=== PATIENT | female | born 1945 | race Caucasian/White ===

== ENCOUNTER 2016-12-04 11:44 | Inpatient (IN) | payer MEDICARE ==
[~2016-12-04] VITALS: Ht 165.1 cm; Wt 81.3 kg
[2016-12-04] MEDS ORDERED: ONDANSETRON 4MG/2ML VIAL (J2405) As Ordered ONE ×2 (12:37→16:04)
[2016-12-04] MEDS ORDERED: MORPHINE 2 MG/ML 1ML SYRINGE As Ordered ONE (12:38)
[2016-12-04 12:43] LABS: BASO % 0.4 % (0.0-1.0); EOS # 0.2 K/mm3 (0.0-0.50); EOS % 1.6 % (0.0-3.0); LARGE UNSTAINED CELL # 0.1 K/mm3 (0.0-0.4); LARGE UNSTAINED CELL % 0.8 % (0.0-4.0); LYMPH # 1.5 K/mm3 (1.5-4.5); LYMPH % 11.4 % (24.0-44.0); MEAN CORPUSCULAR HEMOGLOBIN 29.6 pg (27.0-33.0); MEAN CORPUSCULAR HGB CONC 34.1 g/dl (32.0-36.5); MEAN CORPUSCULAR VOLUME 86.9 fl (80.0-96.0); MONO # 0.6 K/mm3 (0.0-0.8); MONO % 4.8 % (0.0-5.0); NEUTROPHILS # 9.7 K/mm3 (1.8-7.7); NEUTROPHILS % 80.9 % (36.0-66.0); PLATELET COUNT, AUTOMATED 224 k/mm3 (150-450); RED CELL DISTRIBUTION WIDTH 13.6 % (11.5-14.5)
[2016-12-04 13:22] LABS: CALCIUM LEVEL 8.8 MG/DL (8.8-10.2); CREATININE FOR GFR 1.01 MG/DL (0.55-1.02); FREE T4 1.05 NG/DL (0.76-1.46); GLOMERULAR FILTRATION RATE 57.2 (>39); POTASSIUM SERUM 3.3 MEQ/L (3.5-5.1)
[2016-12-04] MEDS ORDERED: MORPHINE 4 MG/ML 1ML SYRINGE As Ordered ONE ×2 (14:03→14:32)
[2016-12-04] MEDS ORDERED: LEVO88TA24 PO (14:10)
[2016-12-04] MEDS ORDERED: TYLE500T78 PO (14:10)
[2016-12-04] MEDS ORDERED: SIMV80TA PO (14:10)
[2016-12-04] MEDS ORDERED: OMEP40CA2 PO (14:10)
[2016-12-04] MEDS ORDERED: RANI150T PO (14:10)
[2016-12-04] MEDS ORDERED: ASPI325T PO (14:10)
[2016-12-04] MEDS ORDERED: TRAZ50TA4 PO (14:10)
[2016-12-04] MEDS ORDERED: LISI10TA4 PO (14:10)
[2016-12-04] MEDS ORDERED: CYCL5TA PO (14:10)
[2016-12-04] MEDS ORDERED: LABETALOL HCL 100 MG/20 ML VIAL As Ordered ONE (14:32)
[2016-12-04] MEDS ORDERED: LABETALOL HCL 100 MG/20 ML VIAL IV PRN (15:00)
--- NOTE | 2016-12-04 15:08 | HPEPDOC ---
Medical History and Physical Date of Admission 12/04/16 History and Physical PRIMARY CARE PROVIDER: Dr. Michaels ATTENDING: Dara Sanchez M.D. CHIEF COMPLAINT: Headache HISTORY OF PRESENT ILLNESS: This is a 71-year-old year-old past medical history hypertension, hypothyroidism , GERD, degenerative disc disease who presents complaining of severe headaches. Patient states that she started to develop a frontal bilateral headache with radiation towards the occipital region for the past week which is been increasing in intensity. Patient denies any vision changes/nausea/vomiting. Describes the pain as pressure-like, 7 out of 10. Also states that she's been stable on her feet as well. Patient denies any chest pain/possible/palpitations. No nausea/vomiting/ abdominal pain. No syncopal episodes. No seizures. Patient states she takes aspirin and statin, however has not taken all of her medications for 3 days this week. In the ED patient was found to have subacute cerebral infarct, and was relatively hypertensive. PAST MEDICAL HISTORY: As per HPI PAST SURGICAL HISTORY: Appendectomy, hysterectomy, back surgery, carpal tunnel repair bilaterally. SOCIAL HISTORY: Denies tobacco, alcohol, illicit drug use. FAMILY HISTORY: Mother with myocardial aneurysm ALLERGIES: Please see below. REVIEW OF SYSTEMS: HEENT: Denies sore throat/headache CARDIOVASCULAR: Denies chest pain/palpitations RESPIRATORY: No shortness of breath/cough GASTROINTESTINAL: Denies nausea/vomiting GENITOURINARY: Denies dysuria/urinary urgency. MUSCULOSKELETAL: Denies myalgias/arthralgias NEUROLOGICAL: Denies any focal weakness Rest of ROS negative. HOME MEDICATIONS: Please see below. PHYSICAL EXAMINATION: Vitals: (see below) General: No acute distress, laying comfortably in bed. HEENT: Moist mucous membranes. Neck: No JVD or lymphadenopathy. Neck Full ROM. Tenderness to palpation of trapezius muscle, occipital region L>R. Cardiac: RRR, No murmurs Pulm: Coarse crackles at the bases b/l. No wheezing, no rhonchi Abd: NT/ND + BS Ext: No edema or cyanosis Neuro: Strength 5/5 BUE and BLE. CN 2-12 intact. F to N intact Negative pronator drift. Negative Babinki. Sensation to fine touch intact. Neuro: Strength 5/5 BUE and BLE. CN 2-12 intact. F to N intact Negative pronator drift. Negative Babinki. DTR 2 Neuro: Strength 5/5 BUE and BLE. CN 2-12 intact. F to N intact Negative pronator drift. Negative Babinki. Sensation to fine touch intact DTR 2+ throughout NIH 0 LABORATORY DATA: See below. IMAGING: CT Head 12/04/16 Read by radiologist Impression: 1. An 8.5 mm hypodense area in the region of the anterior limb of the right internal capsule suggesting subacute infarct. I see no bleed. 2. Chronic small vessel white matter ischemic changes of aging, bilateral. 3. No ventriculomegaly, significant atrophy, hemorrhage, mass, mass effect or edema. 4. Brainstem and cerebellum are normal for age and there is no fracture of the skull base or calvarium. 5. Sinuses, mastoids, skull base and calvarium without acute finding. MRI Brain 12/04/16 Impression: 1. There is extensive periventricular deep central and subcortical white matter hyperintense and T2 FLAIR foci in both hemispheres and basal ganglia. More confluent area in the right basal ganglia, involving the putamen and anterior limb of the internal capsule corresponds to the appearance of a subacute infarct on CT. No bleed. 2. There is a gyriform pattern of subcortical restricted water diffusion in the right posterior frontal anterior parietal region. This suggest acute infarct in a watershed area. 3. No mass, bleed, brainstem or cerebellar acute finding. MRA Brain 12/04/16 Impression: 1. There is no posterior fossa circulatory occlusion or aneurysm. There is stenosis of the proximal left [employer] and an asymmetric posterior communicating artery on the left off the ICA representing a minimal component of origin for that vessel. 2. Internal carotids from the skull base to the carotid siphon and supraclinoid carotids are symmetric and grossly intact with slightly smaller A1 segment on the right with a distal stenosis and with communicating artery and a larger left A1 segment feeding of both right and left anterior cerebrals. 3. The M1 segments and trifurcation vessels of both middle cerebrals were grossly intact. CTA Neck 12/04/16 Impression: Unremarkable CT Angiogram of the carotid arterial system. No evidence of stenosis, dissection, or aneurysm. Minimal atherosclerotic changes bilaterally. CTA Head 12/04/16 Impression: Unremarkable CT angiogram of the head. MICROBIOLOGY: Please see below. ASSESSMENT/PLAN: Ischemic CVA- subacute as well as acute infarct (MRI above). Patient initially presented with intractable headaches. No focal neurologic deficits on exam. Patient had taken an aspirin as well as statin this morning. Patient developed a stroke after missing 3 days of aspirin over the past week. Spoke with Dr. Brooks, and discussed MRI of the brain/MRA head. Plan to change ASA to plavix. SBP Goal 140-180 in the next 48 hrs. CTA neck with no dissection. PT/ OT/ST. Discussed with family and patient that there certainly may be complications developing given the extent of the acute infarct in the watershed region. Will admit to ICU for close observation. Given no timeline of the infarct, spoke with Dr. Brooks - pt is not a candidate for tpa. Cervical spine pain, with trapezius tenderness. History of degenerative disc disease. No focal weakness on exam. We'll obtain MRI cervical spine. Hypertension- permissive hypertension for 24 hours followed by stricter control of patient's blood pressure. Labetalol IV when necessary. Hypothyroidism- continue Synthroid DVT prophylaxis- SCDs for now. Patient is full code. Patient will be followed by Dr. Daria Jc starting 12/05/16 7 AM. Vital Signs BP 200/100, HR 83, RR 16, O2 sat 96% RA, Afebrile. Laboratory Data Labs 24H Laboratory Tests 2 12/04/16 12:35: Anion Gap 10, White Blood Count 12.0H, Red Blood Count 5.05, Hemoglobin 15.0, Hematocrit 43.9, Mean Corpuscular Volume 86.9, Mean Corpuscular Hemoglobin 29.6 , Mean Corpuscular Hemoglobin Concent 34.1, Red Cell Distribution Width 13.6, Platelet Count 224, Neutrophils (%) (Auto) 80.9H, Lymphocytes (%) (Auto) 11.4L, Monocytes (%) (Auto) 4.8, Eosinophils (%) (Auto) 1.6, Basophils (%) (Auto) 0.4, Neutrophils # (Auto) 9.7H, Lymphocytes # (Auto) 1.5, Monocytes # (Auto) 0.6, Eosinophils # (Auto) 0.2, Basophils # (Auto) 0.0, Blood Urea Nitrogen 15, Creatinine 1.01, Sodium Level 143, Potassium Level 3.3L, Chloride Level 107, Carbon Dioxide Level 26, Calcium Level 8.8, Free Thyroxine 1.05, Glomerular Filtration Rate 57.2, Large Unclassified Cells # 0.1, Large Unclassified Cells % 0.8, Thyroid Stimulating Hormone (TSH) 5.840H CBC/BMP Laboratory Tests 12/04/16 12:35 Calcium Level 8.8, Red Blood Count 5.05, Mean Corpuscular Volume 86.9, Mean Corpuscular Hemoglobin 29.6, Mean Corpuscular Hemoglobin Concent 34.1, Red Cell Distribution Width 13.6, Neutrophils (%) (Auto) 80.9 H, Lymphocytes (%) (Auto) 11.4 L, Monocytes (%) (Auto) 4.8, Eosinophils (%) (Auto) 1.6, Basophils (%) ( Auto) 0.4, Neutrophils # (Auto) 9.7 H, Lymphocytes # (Auto) 1.5, Monocytes # ( Auto) 0.6, Eosinophils # (Auto) 0.2, Basophils # (Auto) 0.0 Home Medications Scheduled Aspirin (Aspirin) 325 Mg Tab 325 MG PO DAILY Levothyroxine Sodium (Levoxyl) 88 Mcg Tab 88 MCG PO DAILY Lisinopril (Lisinopril) 10 Mg Tab 10 MG PO QPM Omeprazole (Omeprazole) 40 Mg Cap 40 MG PO DAILY Simvastatin - High Dose (Simvastatin) 80 Mg Tab 80 MG PO DAILY Scheduled PRN Acetaminophen (Tylenol Extra Strength) 500 Mg Tab 1,000 MG PO Q6H PRN PRN PAIN Cyclobenzaprine HCl (Cyclobenzaprine HCl) 5 Mg Tab 5 MG PO BID PRN PRN SPASMS Ranitidine HCl (Ranitidine HCl) 150 Mg Tab 1 TAB PO DAILY PRN PRN HEARTBURN Trazodone HCl (Trazodone HCl) 50 Mg Tab 25 MG PO QHS PRN PRN SLEEP Allergies Coded Allergies: No Known Allergies (Unverified , 12/04/16) DARA SANCHEZ MD Dec 04, 2016 15:08
[2016-12-04 15:12] LABS: INR 1.02
[2016-12-04 15:49] LABS: ERYTHROCYTE SEDIMENTATION RATE 11 mm/hr (0-30)
[2016-12-04] MEDS ORDERED: PROMETHAZINE INJ 25 MG/ML VIAL (J2550) As Ordered ONE (17:03)
[2016-12-04] MEDS ORDERED: ISOVUE-370 76% 100ML VIAL (Q9967) As Ordered ONE ×2 (17:41→18:05)
[2016-12-04] MEDS ORDERED: hydrALAZINE INJ 20 MG/ML VIAL IV PRN (19:00)
[2016-12-04] MEDS ORDERED: hydrALAZINE INJ 20 MG/ML VIAL IV ONE (19:00)
--- NOTE | 2016-12-04 19:10 | REPUSA ---
CT angiogram of the head Clinical history: stroke. Technique: Multiple axial CT images were obtained through the head after a bolus of nonionic intraven ous contrast. Coronal and sagittal reconstructed images were also obtained. Findings: The intracerebral arterial structures including the [place], as well as the distal portions of the carotid and vertebrobasilar arterial systems, demonstrate normal caliber and contour . There is no evidence of aneurysm, stenosis, or thrombosis. No abnormal enhancing mass lesions are s een within the brain. The ventricles and sulci are symmetric bilaterally. There is no midline shift, mass effect, or extra-axial fluid collection. The osseous structures are unremarkable. The visualized paranasal sinuses and mastoid air cells are clear. Impression: Unremarkable CT angiogram of the head.
--- NOTE | 2016-12-04 19:10 | REPUSA ---
Clinical history: stroke. Technique: Multiple axial CT images were obtained from the mid cranium through the mid mediastinum af ter a bolus of nonionic intravenous contrast. Coronal and sagittal reconstructed images were also obt ained. MIP images with 3-D reconstructions were also obtained. No comparison is available. Findings: The aorta appears unremarkable. The great thoracic vessels are grossly patent. The common c arotid arteries and carotid arterial systems demonstrate normal caliber and contour bilaterally. Mini mal atherosclerosis is seen at the carotid bifurcation bilaterally. There is no evidence of stenosis, thrombosis, or aneurysm. The visualized portions of the [place] and intracerebral arterial structures appear unremarkable. The vertebral basilar system is well maintained. The osseous structur es don't demonstrate any gross abnormalities. Mild multilevel degenerative disc disease is seen in th e cervical spine. The surrounding soft tissues are within normal limits. Impression: Unremarkable CT Angiogram of the carotid arterial system. No evidence of stenosis, dissec tion, or aneurysm. Minimal atherosclerotic changes bilaterally.
[2016-12-04] MEDS ORDERED: hydrALAZINE INJ 20 MG/ML VIAL As Ordered ONE (19:25)
--- NOTE | 2016-12-04 19:35 | ECGEPIP ---
Stationary ECG Study 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
--- NOTE | 2016-12-04 19:40 | ECGEPIP ---
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
--- NOTE | 2016-12-04 19:51 | EDDOCDS ---
Nurse's Notes [facility] Name: Leila Hernández Age: 71 yrs Sex: Female : 1945 Arrival Date: 12/04/2016 Time: 11:44 Bed MRI Private MD: Noé Michaels M.D. Diagnosis: Cerebral ischemia-subacute, right internal capsule;Essential (primary) hypertension Presentation: 12/04 11:49 Presenting complaint: Patient states: headache, lightheadedness and neck pain on and rs3 off for a week. had some relief with Tylenol. better laying down, worse with getting up or activities. denies radicular pain/numbness to arms. Risk Factors No acute neurological deficit is noted. Adult Sepsis Screening: The patient does not have new or worsening altered mentation. Patient's respiratory rate is less than 22. Systolic blood pressure is greater than 100. Patient has a qSOFA score of 0- Negative Sepsis Screen. Suicide/Homicide risk assessment- the patient denies having any suicidal and/or homicidal ideations and does not present with any other emotional, behavioral or mental health complaints. Status: Patient is not a health services information specialist or dependent. Transition of care: patient was not received from another setting of care. 11:49 Acuity: SEBASTIAN Level 3 rs3 11:49 Method Of Arrival: Walkin/Carried/Asstd rs3 Triage Assessment: 11:53 General: Appears in no apparent distress. Pain: Pain currently is 6 out of 10 on a pain rs3 scale. Musculoskeletal: Reports Pain is 8 out of 10 on a pain scale. Historical: - Allergies: no known allergies; - Home Meds: 1. omeprazole 40 mg Oral cpDR 1 cap once daily 2. simvastatin 80 mg Oral tab daily 3. levothyroxine 88 mcg Oral cap 1 cap once daily 4. aspirin 325 mg Oral tab 1 tab once daily 5. ranitidine HCl 150 mg Oral tab prn 6. trazodone 50 mg Oral tab 0.5 tab prn 7. lisinopril 10 mg Oral tab 1 tab nightly (Last dose: 12/03/2016) 8. cyclobenzaprine 5 mg Oral tab 1 tab twice a day as needed - PMHx: Hypothyroidism; Hypertension; Hypercholesterolemia; GERD; - PSHx: Carpal Tunnel Repair- Bilateral; back surgery; Hysterectomy; Appendectomy; - The history from nurses notes was reviewed: and I agree with what is documented. - Social history: Smoking status: Patient states was never smoker of tobacco. No barriers to communication noted, The patient speaks fluent Vietnamese. - : The pt / caregiver states he / she is not on anticoagulants. Home medication list is obtained from the patient. - Hospitalizations: : No recent hospitalization is reported. - Exposure Risk Screening:: None identified. - Immunization history:: All immunizations up-to-date. - Family history: Not pertinent. - Social history:: the patient is a non-smoker, the patient does not drink alcohol. Screenin:08 Screening information is obtained from the patient. Fall risk: No risks identified. hs1 Assistance ADL's: requires no assistance with activities of daily living. Abuse/DV Screen: The patient / caregiver reports he/she is: not in a situation that causes fear, pain or injury. Nutritional screening: No deficits noted. Advance Directives: There is no active DNR order. home support is adequate. Assessment: 12:40 General: Appears uncomfortable, Behavior is appropriate for age, cooperative. Pain: hs1 Location: forehead, left ear and left episcopal Pain currently is 9 out of 10 on a pain scale. Quality of pain is described as sharp, shooting. Neurological: Level of Consciousness is awake, alert, obeys commands, Oriented to person, place, time, Primer Inspector are equal bilaterally Moves all extremities. Gait is steady, Facial symmetry appears normal, Pupils are PERRLA. Neurological: Reports headache. Cardiovascular: Rhythm is sinus rhythm No ectopy. Respiratory: Airway is patent Respiratory effort is even, unlabored, Respiratory pattern is regular, symmetrical, Breath sounds are clear bilaterally. Derm: Skin is pink, warm & dry. normal. 13:10 Reassessment: Patient states feeling better. Patient states symptoms have improved. hs1 Patient reports pain in headache better now 8/10. Patient has been to CT and is aware of waiting for results. . 14:08 Pain: Location: forehead Pain currently is 8 out of 10 on a pain scale. Quality of pain hs1 is described as sharp, shooting. Cardiovascular: Rhythm is sinus rhythm No ectopy. Respiratory: No deficits noted. Derm: No deficits noted. 14:41 General: Patient aware of admission and need for MRI. Ordered received from hospitalist hs1 and administered. Patient visibly upset and family surrounds patient at this time. Patient administered morphine at this time as well per order. Patient trying to become comfortable and rest until more testing completed. . 15:50 General: Called by large animal husbandry technician to come assess patient as he does not like patients hs1 color. This nurse went to assess patient and patient found diaphoretic and flushed. Patient reports intense nausea feeling and not feeling well. Patient immediately brought back to room and assessed. MD Moore paged for change in patient condition. . 16:10 General: Patient given Zofran per order and still feels uncomfortable. Abed in hs1 department at this time and is aware to visit patient. Patient still continues to feel "yucky". Nursing continuing to monitor closely. . 16:53 General: Behavior is patient continuing to still feel yucky. Teresa WOOD in to see patient hs1 and new orders received. Patient still diaphoretic and bradycardic. Family continues at bedside. . 17:50 General: Appears appears much more comfortable than previous. Family concerned about hs1 treatments and want to talk to Teresa again Re- plan of care. . Behavior is appropriate for age, cooperative. 18:24 General: Behavior is patient in CT at this time. Patient color much improved since MRI hs1 scan. Patient and family resting and aware of waiting for ICU bed at this time. . 19:31 General: Appears in no apparent distress, comfortable, Behavior is appropriate for age, mv5 cooperative, pleasant. Pain: Denies pain. Neurological: Level of Consciousness is awake, alert, Oriented to person, place, time, Facial symmetry appears normal, Pupils are PERRLA. Cardiovascular: Rhythm is sinus rhythm No ectopy. Respiratory: No deficits noted. Derm: Skin is pink, warm & dry. 19:34 General: Medicated per admission order for elevated BP. Pt tolerated well.. mv5 Vital Signs: 11:46 BP 209 / 144; Pulse 92; Resp 18; Temp 97.6(O); Pulse Ox 100% on R/A; Weight 81.65 kg bnb (R); Height 5 ft. 5 in. (165.10 cm) (R); Pain 10/10; 11:46 BP 165 / 95 LA Sitting (auto/reg); bnb 14:20 BP 214 / 100; Pulse 92; Resp 18; Pain 7/10; hs1 14:41 BP 177 / 85; Pulse 82; Resp 18; Pulse Ox 91% ; Pain 8/10; hs1 15:55 BP 167 / 74 (auto/); hs1 15:56 Pulse 78 MON; Pulse Ox 96% ; hs1 16:10 BP 165 / 75 (auto/); hs1 16:10 Pulse 70 MON; Resp 18; Pulse Ox 96% ; hs1 16:40 BP 160 / 77 (auto/); hs1 16:40 Pulse 62 MON; Resp 18; Temp 96.7(O); Pulse Ox 98% ; hs1 16:55 Pulse 62 MON; Pulse Ox 98% ; hs1 16:55 BP 184 / 91 (auto/); hs1 17:10 BP 155 / 67 (auto/); hs1 17:10 Pulse 74 MON; Pulse Ox 98% ; hs1 17:25 BP 177 / 93 (auto/); hs1 17:25 Pulse 62 MON; Pulse Ox 99% ; hs1 17:39 Pulse 68 MON; Pulse Ox 100% ; hs1 17:40 BP 191 / 87 (auto/); hs1 17:55 BP 188 / 90 (auto/); hs1 17:55 Pulse 64 MON; Pulse Ox 100% ; hs1 19:31 BP 184 / 85; Pulse 76; Resp 18; Temp 97.6(TE); Pulse Ox 96% on 2 lpm NC; mv5 11:46 Body Mass Index 29.95 (81.65 kg, 165.10 cm) bnb Vitals: 11:46 Log In Time: December 04, 2016 at 11:43. b ED Course: 11:45 Patient visited by Fadia Rocha PCA. bnb 11:45 Patient moved to Waiting bnb 11:46 Noé Michaels is Private Physician. bnb 11:48 Patient moved to Pre RCE bnb 11:52 Triage Initiated rs3 11:56 Kenya Figueroa, PAT is Primary Nurse. jjr 11:56 Patient moved to 9 jjr 12:02 Fran Hussein MD is Attending Physician. pc 12:11 Patient visited by Miguel Suarez PCA. jrd 12:11 EKG done. (by ED staff). Reviewed by Fran Hussein MD. jrd 12:18 Patient visited by Fran Hussein MD. pc 12:45 Inserted saline lock: 20 gauge in left antecubital area and blood collected. The hs1 patient tolerated the procedure well. 12:54 Patient visited by Kenya Figueroa RN. hs1 13:31 Patient visited by Kenya Figeuroa, PAT. hs1 14:06 Patient visited by Kenya Figueroa, PAT. hs1 14:08 The patient / caregiver is instructed regarding the plan of care and ED course. hs1 14:35 Burak Moore is Hospitalizing Provider. pc 14:56 Patient moved to MRI deg 15:25 [facility] Payment Agreement was scanned into [employer] and attached to record. mpb 16:46 Patient visited by Miguel Suarez PCA. jrd 16:46 EKG done. (by ED staff). Reviewed by Kenya Figueroa RN. jrd 19:10 Mary Hart,PAT is Primary Nurse. mv5 19:36 No procedures done that require assistance. mv5 19:36 CT ANGIO NECK Returned. EDMS 19:36 CT ANGIO HEAD Returned. EDMS Administered Medications: 12:44 Drug: Ondansetron 4 mg [ondansetron HCl 2 mg/mL intravenous solution (2 mL)] Route: hs1 IVP; Site: left antecubital; 12:44 Drug: Diazepam 2 mg [diazepam 5 mg/mL injection syringe (0.4 mL)] Route: IVP; Site: hs1 left antecubital; 13:55 Follow up: Response: No significant change. hs1 12:45 Drug: morphine 2 mg [morphine 2 mg/mL intravenous cartridge (1 mL)] Route: IVP; Site: hs1 left antecubital; 14:41 Follow up: BP 177 / 85; Pulse 82 bpm; Resp 18 bpm; Pulse Ox 91% ; Pain 8/10 Adult; hs1 Response: Pain is decreased 14:05 Drug: morphine 4 mg [morphine 4 mg/mL intravenous cartridge (1 mL)] Route: IVP; Site: hs1 left antecubital; 14:20 Follow up: BP 214 / 100; Pulse 92 bpm; Resp 18 bpm; Pain 7/10 Adult; Response: Pain is hs1 decreased 14:40 Drug: morphine 4 mg [morphine 4 mg/mL intravenous cartridge (1 mL)] Route: IVP; Site: hs1 left antecubital; 14:40 Drug: Labetalol 10 mg [labetalol 5 mg/mL intravenous solution (2 mL)] Route: IVP; Rate: hs1 bolus; Infused Over: 2 mins; Site: left antecubital; 16:00 Drug: Ondansetron 4 mg [ondansetron HCl 2 mg/mL intravenous solution (2 mL)] Route: hs1 IVP; Site: left antecubital; 16:54 CANCELLED (wrong MD): Promethazine 12.5 mg IVP once; dilute and administer 30-60 minuteshs1 17:12 Drug: Promethazine 12.5 mg [promethazine 25 mg/mL injection solution (0.5 mL)] Route: hs1 IVP; Site: left antecubital; Order Results: Lab Order: CBC with Diff; SPEC'M 12/04/16 12:35 Test: WHITE BLOOD COUNT; Value: 12.0; Range: 4.0-10.0; Abnormal: Above high normal; Units: K/mm3; Status: F Test: RED BLOOD COUNT; Value: 5.05; Range: 4.00-5.40; Units: M/mm3; Status: F Test: HEMOGLOBIN; Value: 15.0; Range: 12.0-16.0; Units: g/dl; Status: F Test: HEMATOCRIT; Value: 43.9; Range: 36.0-47.0; Units: %; Status: F Test: MEAN CORPUSCULAR VOLUME; Value: 86.9; Range: 80.0-96.0; Units: fl; Status: F Test: MEAN CORPUSCULAR HEMOGLOBIN; Value: 29.6; Range: 27.0-33.0; Units: pg; Status: F Test: MEAN CORPUSCULAR HGB CONC; Value: 34.1; Range: 32.0-36.5; Units: g/dl; Status: F Test: RED CELL DISTRIBUTION WIDTH; Value: 13.6; Range: 11.5-14.5; Units: %; Status: F Test: PLATELET COUNT, AUTOMATED; Value: 224; Range: 150-450; Units: k/mm3; Status: F Test: NEUTROPHILS %; Value: 80.9; Range: 36.0-66.0; Abnormal: Above high normal; Units: %; Status: F Test: LYMPH %; Value: 11.4; Range: 24.0-44.0; Abnormal: Below low normal; Units: %; Status: F Test: MONO %; Value: 4.8; Range: 0.0-5.0; Units: %; Status: F Test: EOS %; Value: 1.6; Range: 0.0-3.0; Units: %; Status: F Test: BASO %; Value: 0.4; Range: 0.0-1.0; Units: %; Status: F Test: LARGE UNSTAINED CELL %; Value: 0.8; Range: 0.0-4.0; Units: %; Status: F Test: NEUTROPHILS #; Value: 9.7; Range: 1.8-7.7; Abnormal: Above high normal; Units: K/mm3; Status: F Test: LYMPH #; Value: 1.5; Range: 1.5-4.5; Units: K/mm3; Status: F Test: MONO #; Value: 0.6; Range: 0.0-0.8; Units: K/mm3; Status: F Test: EOS #; Value: 0.2; Range: 0.0-0.50; Units: K/mm3; Status: F Test: BASO #; Value: 0.0; Range: 0.0-0.2; Units: K/mm3; Status: F Test: LARGE UNSTAINED CELL #; Value: 0.1; Range: 0.0-0.4; Units: K/mm3; Status: F Test: ERYTHROCYTE SEDIMENTATION RATE; Range: 0-30; Units: mm/hr; Status: I Lab Order: MED Profile; [facility] 12/04/16 12:35 Test: GLUCOSE, FASTING; Value: 123; Range: 83-110; Abnormal: Above high normal; Units: MG/DL; Status: F Test: BLOOD UREA NITROGEN; Value: 15; Range: 7-18; Units: MG/DL; Status: F Test: CREATININE FOR GFR; Value: 1.01; Range: 0.55-1.02; Units: MG/DL; Status: F Test: GLOMERULAR FILTRATION RATE; Value: 57.2; Range: >39; Status: F Test: SODIUM LEVEL; Value: 143; Range: 136-145; Units: MEQ/L; Status: F Test: POTASSIUM SERUM; Value: 3.3; Range: 3.5-5.1; Abnormal: Below low normal; Units: MEQ/L; Status: F Test: CHLORIDE LEVEL; Value: 107; Range: 98-107; Units: MEQ/L; Status: F Test: CARBON DIOXIDE LEVEL; Value: 26; Range: 21-32; Units: MEQ/L; Status: F Test: ANION GAP; Value: 10; Range: 8-16; Units: MEQ/L; Status: F Test: CALCIUM LEVEL; Value: 8.8; Range: 8.8-10.2; Units: MG/DL; Status: F Test Note: ; Units are mL/min/1.73 m2 Chronic Kidney Disease Staging per NKF: Stage I & II GFR >=60 Normal to Mildly Decreased Stage III GFR 30-59 Moderately Decreased Stage IV GFR 15-29 Severely Decreased Stage V GFR <15 Very Little GFR Left ESRD GFR <15 on CARDIAC EXERCISE PHYSIOLOGIST Lab Order: TSH with Free T4; SPEC'M 12/04/16 12:35 Test: THYROID STIMULATING HORMONE; Value: 5.840; Range: 0.358-3.740; Abnormal: Above high normal; Units: uIU/ML; Status: F Test: FREE T4; Value: 1.05; Range: 0.76-1.46; Units: NG/DL; Status: F Lab Order: PROTHROMBIN TIME PROFILE\\E\\INR; SPEC'12/04/16 12:35 Test: PROTHROMBIN TIME; Value: 13.5; Range: 12.3-14.5; Units: SECONDS; Status: F Test: INR; Value: 1.02; Status: F Test Note: ; THERAPUTIC HUMAN INR VALUES INDICATIONS NORMAL RANGES PROPHYLAXIS/TREATMENT OF: VENOUS THROMBOSIS 2.0-3.0 PULMONARY EMBOLISM 2.0-3.0 PREVENTION OF SYSTEMIC EMBOLISM FROM: TISSUE HEART VALVES 2.0-3.0 ACUTE MYOCARDIAL INFARCTION 2.0-3.0 VALVULAR HEART DISEASE 2.0-3.0 ATRIAL FIBRILLATION 2.0-3.0 MECHANICAL VALVES(HIGH RISK) 2.5-3.5 RECURRENT MYOCARDIAL INFARCTION 2.5-3.5 Lab Order: ERYTHROCYTE SEDIMENTATION RATE; SPEC'M 12/04/16 12:35 Test: ERYTHROCYTE SEDIMENTATION RATE; Value: 11; Range: 0-30; Units: mm/hr; Status: F Radiology Order: CT ANGIO HEAD Test: CT ANGIO HEAD REASON FOR EXAMINATION: cva; ; CT angiogram of the head; Clinical history: stroke.; Technique: Multiple axial CT images were obtained through the head after a bolus of nonionic intraven; ous contrast. Coronal and sagittal reconstructed images were also obtained.; Findings: The intracerebral arterial structures including the [place] of [place], as well as the distal; portions of the carotid and vertebrobasilar arterial systems, demonstrate normal caliber and contour; . There is no evidence of aneurysm, stenosis, or thrombosis. No abnormal enhancing mass lesions are s; een within the brain. The ventricles and sulci are symmetric bilaterally. There is no midline shift,; mass effect, or extra-axial fluid collection. The osseous structures are unremarkable. The visualized; paranasal sinuses and mastoid air cells are clear.; Impression: Unremarkable CT angiogram of the head.; ; Radiology Order: CT ANGIO NECK Test: CT ANGIO NECK REASON FOR EXAMINATION: cva; neck pain; r/o carotid dissection; ; Clinical history: stroke.; Technique: Multiple axial CT images were obtained from the mid cranium through the mid mediastinum af; ter a bolus of nonionic intravenous contrast. Coronal and sagittal reconstructed images were also obt; ained. MIP images with 3-D reconstructions were also obtained.; No comparison is available.; Findings: The aorta appears unremarkable. The great thoracic vessels are grossly patent. The common c; arotid arteries and carotid arterial systems demonstrate normal caliber and contour bilaterally. Mini; mal atherosclerosis is seen at the carotid bifurcation bilaterally. There is no evidence of stenosis,; thrombosis, or aneurysm. The visualized portions of the [place] of [place] and intracerebral arterial; structures appear unremarkable. The vertebral basilar system is well maintained. The osseous structur; es don't demonstrate any gross abnormalities. Mild multilevel degenerative disc disease is seen in th; e cervical spine. The surrounding soft tissues are within normal limits.; Impression: Unremarkable CT Angiogram of the carotid arterial system. No evidence of stenosis, dissec; tion, or aneurysm. Minimal atherosclerotic changes bilaterally.; ; Outcome: 14:35 Decision to Hospitalize by Provider. pc 19:36 Discharge Assessment: Patient awake, alert and oriented x 3. No cognitive and/or mv5 functional deficits noted. Patient verbalized understanding of disposition instructions. patient administered narcotics - yes. Patient was admitted to the hospital or transferred to another facility. The following High Risk Discharge criteria are identified: None. Admitted to ICU. Condition: stable. MRI Study completed. Property :Personal belongings accompany Pt. 19:50 Patient left the ED. mv5 Signatures: Dispatcher [employer] EDMS Fran Hussein MD MD pc Luh Bell, Solar Thermal Technician Unit deg Cassidy Alves, RN RN Renetta Loving,RN RN rs3 Kenya Figueroa RN RN hs1 Miguel Suarez, RETAIL LOSS PREVENTION SPECIALIST RETAIL LOSS PREVENTION SPECIALIST jrd Delbert Oliveira, Reg Reg mpb Fadia Rocha, RETAIL LOSS PREVENTION SPECIALIST RETAIL LOSS PREVENTION SPECIALIST bnb Mary Hart,RN RN mv5 Corrections: (The following items were deleted from the chart) 12:45 12:45 Inserted saline lock: 20 gauge in left antecubital area hs1 hs1 MTDD
--- NOTE | 2016-12-04 19:51 | EDDOCDS ---
Physician Documentation [facility] Name: Leila Hernández Age: 71 yrs Sex: Female : 1945 Arrival Date: 12/04/2016 Time: 11:44 Bed MRI Private MD: Noé Michaels M.D. Disposition: 12/04 14:33 Critical Care: Critical care not applicable. pc Disposition: 12/04/16 14:35 Hospitalization ordered by Burak Moore for Inpatient Admission. Preliminary diagnosis are Cerebral ischemia - subacute, right internal capsule, Essential (primary) hypertension. - Bed requested for M ICU. - Status is Inpatient Admission. mv5 - Condition is Stable. - Problem is new. - Symptoms have improved. HPI: 12:31 This 71 yrs old Female presents to ER via Walkin/Carried/Asstd with pc complaints of Neck and Upper Back Pain. 12:31 The history is obtained from the patient. She developed upper back and neck pain 8 days pc ago, left worse than right. She denies any traumatic or overuse injury. She has been using Tylenol without relief. She has Flexeril for low back spasms but do not use any for her upper back and neck. She denies any fevers or chills, cough, URI symptoms, chest pain, n/v/d, abd. pain, symptoms, rashes or joint pain. She says over the past 3 days, the pain has gotten worse and she is having pain in her forehead above her eyebrows only. She presents hypertensive with a known history of the same, but under control per her account. She denies any visual changes, focal neuro changes. At their worst, the symptoms were a 10 out of 10. In the emergency department, the symptoms are unchanged. The patient has not experienced similar symptoms in the past. The patient has not recently seen a physician. Historical: - Allergies: no known allergies; - Home Meds: 1. omeprazole 40 mg Oral cpDR 1 cap once daily 2. simvastatin 80 mg Oral tab daily 3. levothyroxine 88 mcg Oral cap 1 cap once daily 4. aspirin 325 mg Oral tab 1 tab once daily 5. ranitidine HCl 150 mg Oral tab prn 6. trazodone 50 mg Oral tab 0.5 tab prn 7. lisinopril 10 mg Oral tab 1 tab nightly (Last dose: 12/03/2016) 8. cyclobenzaprine 5 mg Oral tab 1 tab twice a day as needed - PMHx: Hypothyroidism; Hypertension; Hypercholesterolemia; GERD; - PSHx: Carpal Tunnel Repair- Bilateral; back surgery; Hysterectomy; Appendectomy; - The history from nurses notes was reviewed: and I agree with what is documented. - Social history: Smoking status: Patient states was never smoker of tobacco. No barriers to communication noted, The patient speaks fluent Belarusian. - : The pt / caregiver states he / she is not on anticoagulants. Home medication list is obtained from the patient. - Hospitalizations: : No recent hospitalization is reported. - Exposure Risk Screening:: None identified. - Immunization history:: All immunizations up-to-date. - Family history: Not pertinent. - Social history:: the patient is a non-smoker, the patient does not drink alcohol. ROS: 12:31 All systems are negative except as listed. pc Exam: 12:31 General Appearance: alert, the patient is in mild distress. pc 12:31 EENT: normal eye inspection, pharynx normal, mucous membranes moist no apparent trauma, pain to palpation over frontal bones sinuses, without skin color change or swelling. 12:31 Neck: The exam is negative for acute abnormalities except: palpation reveals pain over both trapezius muscles, left worse than right, without bony point tenderness. Normal ROM but painful with lateral rotation only. No lymphadenopathy, goitre . 12:31 Respiratory: no respiratory distress, normal breath sounds, chest non-tender. 12:31 CVS: regular pulse rate, regular rhythm, normal S1 and S2, no murmurs, strong peripheral pulses, normal capillary refill. 12:31 Abdomen: soft, non-tender, no organomegaly, normal bowel sounds. 12:31 Back: Pain is noted in the left trapezius and right trapezius. 12:31 Skin: skin color is normal, warm, dry, no rashes, no lesions. 12:31 Extremities: The extremities have a grossly normal appearance, are non-tender, without acute ROM abnormalities. 12:31 Neuro: oriented x 3, cranial nerves normal as tested, no motor deficits, no sensory deficits, normal gait, Cerebellar function: normal finger to nose testing, Romberg testing is negative, Deep tendon reflexes are normal, normal upgoing toes are appreciated bilaterally. 12:31 Psych: normal mood. Vital Signs: 11:46 BP 209 / 144; Pulse 92; Resp 18; Temp 97.6(O); Pulse Ox 100% on R/A; Weight 81.65 kg / bnb 180.01 lbs (R); Height 5 ft. 5 in. (165.10 cm) (R); Pain 10/10; 11:46 BP 165 / 95 LA Sitting (auto/reg); bnb 14:20 BP 214 / 100; Pulse 92; Resp 18; Pain 7/10; hs1 14:41 BP 177 / 85; Pulse 82; Resp 18; Pulse Ox 91% ; Pain 8/10; hs1 15:55 BP 167 / 74 (auto/); hs1 15:56 Pulse 78 MON; Pulse Ox 96% ; hs1 16:10 BP 165 / 75 (auto/); hs1 16:10 Pulse 70 MON; Resp 18; Pulse Ox 96% ; hs1 16:40 BP 160 / 77 (auto/); hs1 16:40 Pulse 62 MON; Resp 18; Temp 96.7(O); Pulse Ox 98% ; hs1 16:55 Pulse 62 MON; Pulse Ox 98% ; hs1 16:55 BP 184 / 91 (auto/); hs1 17:10 BP 155 / 67 (auto/); hs1 17:10 Pulse 74 MON; Pulse Ox 98% ; hs1 17:25 BP 177 / 93 (auto/); hs1 17:25 Pulse 62 MON; Pulse Ox 99% ; hs1 17:39 Pulse 68 MON; Pulse Ox 100% ; hs1 17:40 BP 191 / 87 (auto/); hs1 17:55 BP 188 / 90 (auto/); hs1 17:55 Pulse 64 MON; Pulse Ox 100% ; hs1 19:31 BP 184 / 85; Pulse 76; Resp 18; Temp 97.6(TE); Pulse Ox 96% on 2 lpm NC; mv5 11:46 Body Mass Index 29.95 (81.65 kg, 165.10 cm) bnb MDM: 12:00 ECG WITH READING ER PHYS+CARDIAG ordered. EDMS 12:30 IV Saline Lock ordered. pc 12:31 morphine 2 mg IVP once ordered. pc 12:31 Ondansetron 4 mg IVP once ordered. pc 12:31 Diazepam 2 mg IVP once ordered. pc 12:31 CBC with Diff Ordered. EDMS 12:31 MED Profile Ordered. EDMS 12:31 TSH with Free T4 Ordered. EDMS 12:31 CT Head Without Contrast Ordered. EDMS 12:31 Differential Diagnosis: frontal headache/sinus pain r/o sinusitis; bilateral trapezius pc muscle pain; elevated BP due to pain r/o hypertensive urgency. Plan: labs, meds, imaging, EKG. 13:28 CBC with Diff Reviewed. pc 13:28 MED Profile Reviewed. pc 13:28 TSH with Free T4 Reviewed. pc 13:36 Learning Technologist/Pulse Ox/q 30 min VS ordered. pc 13:36 MRI Screening Tool - Place on chart, inform RN ordered. pc 13:37 BED REQUEST+ADM ordered. EDMS 13:38 -MRA-Brain without contrast Ordered. EDMS 13:38 -MRA-Carotid with contrast Ordered. EDMS 13:38 -MRI-Brain without Ordered. EDMS 13:43 morphine 4 mg IVP every 15 minutes; Document pain score/vitals after each dose (Hold if pc SBP < 90mmHg) x2 ordered. 14:03 Data reviewed: old medical records, vital signs, nurses notes, lab test results, all pc radiology studies and available results. 14:05 Chest, 1 View Ordered. EDMS 14:07 MRI Screening Tool - Place on chart, inform RN complete. jrd 14:31 Data reviewed: EKG(s). Test interpretation: EKG. pc 14:33 Test interpretation: LAB - all labs as ordered have been reviewed, interpreted and pc considered in the overall management of the clinical presentation; interpreted by Radiologist and personally reviewed, Head CT; 8.5mm hypodense lesion in right internal capsule consistent with subacute infarct. The patient has been re-examined and re-evaluated. The patient's symptoms have mildly improved after treatment. Physician consultation: Dr. Leo Herrera regarding consult. 14:33 Physician consultation: Dr. Burak Moore regarding admission. Disposition: The pc historical points, examination findings, and any diagnostic results supporting the provided diagnosis, were discussed with the patient or legal guardian. The need for further work-up and/or treatment in the hospital was explained. 14:40 Labetalol 10 mg IVP at bolus once over 2 mins ordered. hs1 14:49 Test interpretation: X-RAY - interpreted by me, 1 view chest no acute disease. pc 14:50 CARDIAC INJURY PROFILE Ordered. EDMS 14:50 TROPONIN Ordered. EDMS 14:50 PROTHROMBIN TIME PROFILE\E\INR Ordered. EDMS 14:51 PHYSICAL THERAPY EVAL & TREAT ordered. EDMS 14:51 Admission / Observation Status ordered. EDMS 14:51 ECHOCARD,DOPPLER/COLOR FLOW ordered. EDMS 14:52 NPO DIET ordered. EDMS 14:52 MRI Spine,Cervical without con Ordered. EDMS 14:55 ERYTHROCYTE SEDIMENTATION RATE Ordered. EDMS 15:25 [facility] Payment Agreement was scanned into [employer] and attached to record. mpb 15:25 Financial registration complete. mpb 16:38 Ondansetron 4 mg IVP once ordered. hs1 16:39 ECG WITH READING ER PHYS ordered. EDMS 16:54 Promethazine 12.5 mg IVP once; dilute and administer 30-60 minutes ordered. hs1 17:23 Admission / Observation Status ordered. EDMS 17:23 CT ANGIO HEAD Ordered. EDMS 17:24 CT ANGIO NECK Ordered. EDMS 19:32 CARDIAC INJURY PROFILE Ordered. EDMS 19:32 TROPONIN Ordered. EDMS 19:32 COMPLETE BLOOD COUNT Ordered. EDMS 19:32 COMPLETE COMPHRENSIVE METABOLI Ordered. EDMS 19:32 MAGNESIUM LEVEL Ordered. EDMS EC:31 Rate is 90 beats/min. Rhythm is regular, Normal Sinus Rhythm. QRS [place] is Normal. NM pc interval is normal. QRS interval is normal. QT interval is normal. No Q waves. T waves are Inverted in lead III. ST Segment is depressed in leads V2, V3, <1mm. Clinical impression: Normal Sinus Rhythm, ST-T changes consistent with early repolarization., and LVH. Administered Medications: 12:44 Drug: Ondansetron 4 mg [ondansetron HCl 2 mg/mL intravenous solution (2 mL)] Route: hs1 IVP; Site: left antecubital; 12:44 Drug: Diazepam 2 mg [diazepam 5 mg/mL injection syringe (0.4 mL)] Route: IVP; Site: hs1 left antecubital; 13:55 Follow up: Response: No significant change. hs1 12:45 Drug: morphine 2 mg [morphine 2 mg/mL intravenous cartridge (1 mL)] Route: IVP; Site: hs1 left antecubital; 14:41 Follow up: BP 177 / 85; Pulse 82 bpm; Resp 18 bpm; Pulse Ox 91% ; Pain 8/10 Adult; hs1 Response: Pain is decreased 14:05 Drug: morphine 4 mg [morphine 4 mg/mL intravenous cartridge (1 mL)] Route: IVP; Site: hs1 left antecubital; 14:20 Follow up: BP 214 / 100; Pulse 92 bpm; Resp 18 bpm; Pain 7/10 Adult; Response: Pain is hs1 decreased 14:40 Drug: morphine 4 mg [morphine 4 mg/mL intravenous cartridge (1 mL)] Route: IVP; Site: hs1 left antecubital; 14:40 Drug: Labetalol 10 mg [labetalol 5 mg/mL intravenous solution (2 mL)] Route: IVP; Rate: hs1 bolus; Infused Over: 2 mins; Site: left antecubital; 16:00 Drug: Ondansetron 4 mg [ondansetron HCl 2 mg/mL intravenous solution (2 mL)] Route: hs1 IVP; Site: left antecubital; 16:54 CANCELLED (wrong MD): Promethazine 12.5 mg IVP once; dilute and administer 30-60 minuteshs1 17:12 Drug: Promethazine 12.5 mg [promethazine 25 mg/mL injection solution (0.5 mL)] Route: hs1 IVP; Site: left antecubital; Signatures: Dispatcher [employer] EDMS Fran Hussein MD MD pc Raymond, Jessica, RN RN jjr Thomas, Melissa mt4 Renetta Pantoja RN RN rs3 Kenya Figueroa RN RN hs1 Miguel Suarez, TRIMMER SORTER TRIMMER SORTER jrd Delbert Oliveira, Reg Reg mpb Radha Martinez RN RN lmg Vannedery, Megan,RN RN mv5 The chart was reviewed and I authenticate all verbal orders and agree with the evaluation and treatment provided.Corrections: (The following items were deleted from the chart) 14:56 14:52 ERYTHROCYTE SEDIMENTATION RATE ordered. EDMS EDMS 16:54 16:54 Promethazine 12.5 mg IVP once; dilute and administer 30-60 minutes ordered. hs1 hs1 Attachments: 15:25 [facility] Payment Agreement mpb MTDD
[2016-12-04 20:00] VITALS: BP 175/80
[2016-12-04] MEDS: KCL 10MEQ IN 100ML SWI (KRUN) 10 MEQ in APPROPRIATE DILUENT 1 EA IV SCH ×6 (20:22→22:31)
[2016-12-04 22:00] VITALS: BP 160/82
[2016-12-05] VITALS (11 sets, daily range): BP systolic 138–175; BP diastolic 63–85
[2016-12-05] MEDS: ACETAMINOPHEN TAB 650MG DOSE (2X325MG) PO PRN ×2 (00:46→07:36)
[2016-12-05 04:58] LABS: MEAN CORPUSCULAR HEMOGLOBIN 29.4 pg (27.0-33.0); MEAN CORPUSCULAR HGB CONC 33.5 g/dl (32.0-36.5); MEAN CORPUSCULAR VOLUME 87.7 fl (80.0-96.0); RED CELL DISTRIBUTION WIDTH 13.4 % (11.5-14.5); WHITE BLOOD COUNT 12.6 K/mm3 (4.0-10.0)
[2016-12-05 05:29] LABS: ALBUMIN 3.8 GM/DL (3.2-5.2); ALBUMIN/GLOBULIN RATIO 1.27 (1.00-1.93); ALKALINE PHOSPHATASE 90 U/L (45-117); ALT/SGPT 30 U/L (12-78); ANION GAP 9 MEQ/L (8-16); AST/SGOT 18 U/L (15-37); BILIRUBIN,TOTAL 0.5 MG/DL (0.2-1.0); BLOOD UREA NITROGEN 14 MG/DL (7-18); CALCIUM LEVEL 8.7 MG/DL (8.8-10.2); CARBON DIOXIDE LEVEL 28 MEQ/L (21-32); CHLORIDE LEVEL 108 MEQ/L (98-107); CREATININE FOR GFR 0.83 MG/DL (0.55-1.02); GLOMERULAR FILTRATION RATE > 60.0 (>39); GLUCOSE, FASTING 94 MG/DL (83-110); MAGNESIUM LEVEL 2.2 MG/DL (1.8-2.4); POTASSIUM SERUM 3.9 MEQ/L (3.5-5.1); SODIUM LEVEL 145 MEQ/L (136-145); TOTAL PROTEIN 6.8 GM/DL (6.4-8.2)
--- NOTE | 2016-12-05 05:39 | REP ---
CT BRAIN WITHOUT CONTRAST: 12/04/2016. Clinical history: Hypertension, headache. Findings: There were no prior studies. Soft tissue and bone windows for each slice level are reviewed. Ventricles midline, symmetric and without dilatation. Third and fourth ventricles were unremarkable. Basal ganglia show hypodensity in the anterior limb of the right internal capsule. This may be subacute infarct. There are heterogeneous low attenuation periventricular deep central and subcortical white matter changes bilaterally representing chronic small vessel ischemic changes of aging. I do not see evidence of intracranial hemorrhage, acute infarct, mass or edema. No atrophy. Brainstem shows no focal lesion. Cerebellum shows minimal atrophy without masses. No posterior fossa hemorrhage. The basal cisterns intact. Mastoids and visualized sinuses were clear. The skull base and calvarium show no fracture or focal lesion. Impression: 1. An 8.5 mm hypodense area in the region of the anterior limb of the right internal capsule suggesting subacute infarct. I see no bleed. 2. Chronic small vessel white matter ischemic changes of aging, bilateral. 3. No ventriculomegaly, significant atrophy, hemorrhage, mass, mass effect or edema. 4. Brainstem and cerebellum are normal for age and there is no fracture of the skull base or calvarium. 5. Sinuses, mastoids, skull base and calvarium without acute finding. Signed by Bhavesh Mcadams MD 12/05/2016 09:07 A
[2016-12-05] MEDS: LEVOTHYROXINE 0.088 MG TAB (88 MCG) PO SCH (06:13)
--- NOTE | 2016-12-05 06:17 | REP ---
AP PORTABLE CHEST: 12/04/2016. Comparison: chest x-ray and CT 11/15/2012. Clinical history: CVA. Lung patel are well inflated. There is slight eventration/elevation right diaphragm. CP angles sharply defined. There is no effusion, infiltrate, atelectasis or mass. The heart has left ventricular configuration and upper limits normal size. The aorta is tortuous but unchanged. Airway intact. No mediastinal or hilar mass. No vascular redistribution or pulmonary edema. Bones show degenerative changes shoulders and spine. Impression: 1. Left ventricular configuration of the heart without infiltrate, effusion, edema or mass. Signed by Bhavesh Mcadams MD 12/05/2016 09:10 A
--- NOTE | 2016-12-05 06:42 | REP ---
MRI BRAIN WITHOUT CONTRAST: 12/04/2016. Comparison: MRA brain, CT brain this date. Clinical history: CVA. Technique: Sagittal T1 with axial T1, T2, FLAIR, gradient echo, diffusion-weighted images and ADC mapping sequences. Ventricles are midline, symmetric and without dilatation. Third and fourth ventricles are grossly unremarkable as well. There are extensive hyperintense T2 foci scattered in the basal ganglia, some of which are dilated perivascular spaces, other areas are clearly small vessel ischemic change. There are also extensive periventricular, deep central and subcortical white matter hyperintense foci in each hemisphere on the T2 and FLAIR images. These are more confluent near the posterior horns and in the posterior frontal and anterior parietal regions. Numerous subcortical foci also noted. These correspond to the heterogeneous low attenuation findings on CT. In the basal ganglia on the right, there is only a zone of hyperintensity fairly mild without T1 hypointensity. This may reflect a subacute or old infarct. I do not see evidence of intracranial hemorrhage on the gradient echo images. The diffusion weighted images show no restricted water diffusion in the brainstem or cerebellum, however, there appears to be some restricted water diffusion along high posterior parietal, anterior occipital subcortical regions with dark signal on the ADC mapping in that same distribution suggesting acute infarct. This is middle cerebral artery or watershed territory. I do not see other definite areas of restricted diffusion. Brainstem and cerebellum grossly intact. Cortical stripe is generally preserved. No midline shift or mass effect. The seventh/eighth cranial nerve complexes, mastoids and visualized sinuses were clear. Orbits and contents symmetric and normal. Corpus callosum, optic chiasm and pituitary are intact. No cerebellar tonsillar ectopia evident. Impression: 1. There is extensive periventricular, deep central and subcortical white matter hyperintense and T2 FLAIR foci in both hemispheres and basal ganglia consistent with chronic white matter small vessel ischemic change. More confluent area in the right basal ganglia involving the putamen and anterior limb of the internal capsule corresponds to the appearance of a subacute infarct on CT. No bleed. 2. There is a gyriform pattern of subcortical restricted water diffusion in the right frontal anterior parietal region. This suggests acute infarct in a watershed area. 3. No mass, bleed, brainstem or cerebellar acute finding. Signed by Bhavesh Mcadams MD 12/05/2016 09:14 A
--- NOTE | 2016-12-05 06:51 | REP ---
MRA OF THE BRAIN WITHOUT CONTRAST: 12/04/2016. Clinical history: CVA. Comparison: CT and MRI brain without contrast today. TECHNIQUE: 3-D [id number] gradient echo images with MIP reformatting and rotational display of the volume reconstructions about the longitudinal and horizontal axis of the brain. All source images are reviewed. There is a dominant right vertebral artery contribution to the basilar artery. There is no basilar stenosis or aneurysm. There is mild stenosis of the proximal left posterior cerebral artery at its origin from the basilar tip, no basilar tip aneurysm. Remainder of the left posterior cerebral and the entire right posterior cerebral are without stenosis and show generally symmetric supply to the posterior fossa. The right internal carotid through the skull base to the carotid siphon is without stenosis or aneurysm. There is only minimal plaque in the carotid siphon with the supraclinoid carotid showing no stenosis. The M1 segment is intact and the trifurcation vessels preserved. The A1 segment is slightly smaller on the right than left, but a distal stenosis seen near the A2 segment of the anterior cerebral. However, an anterior communicating artery is visible with flow from the left side and equal right and left A2 segments. Trifurcation vessels are grossly intact without stenosis or vessel cutoff. The left internal carotid from the skull base to the carotid siphon was unremarkable. The A1, M1 and supraclinoid carotid segments were unremarkable. The A2 and trifurcation vessels on the left were intact. The study shows no evidence of stenosis or aneurysm. There is a small posterior communicating artery from the left internal carotid to the posterior cerebral. This is minimal remnant of the origin of the left SPECIALTY MANUFACTURING SUPERVISOR. Impression: 1. There is no posterior fossa circulatory occlusion or aneurysm. There is stenosis of the proximal left SPECIALTY MANUFACTURING SUPERVISOR and an asymmetric posterior communicating artery on the left off the ICA representing a minimal component of origin for that vessel. 2. Internal carotids from the skull base, carotid siphon and supraclinoid evidence are symmetric and grossly intact with slightly smaller A1 segment on the right with distal stenosis but with communicating artery and a larger left A1 segment feeding both right and left anterior cerebrals. 3. The M1 segments and trifurcation vessels of both middle cerebrals were grossly intact. Signed by Bhavesh Mcadams MD 12/05/2016 09:15 A
[2016-12-05] MEDS: SIMVASTATIN 40 MG TAB PO SCH (07:36)
[2016-12-05] MEDS: OMEPRAZOLE 20 MG CAP PO SCH (07:36)
[2016-12-05] MEDS ORDERED: traMADol 50 MG TAB PO PRN (08:45)
[2016-12-05] MEDS ORDERED: CLOPIDOGREL 75 MG TAB PO SCH (09:00)
[2016-12-05] MEDS ORDERED: ASPIRIN 325 MG TAB PO SCH (09:00)
[2016-12-05] MEDS ORDERED: IBUPROFEN 600 MG TAB PO PRN (10:45)
[2016-12-05] MEDS: ONDANSETRON 4MG/2ML VIAL (J2405) IV PRN (12:07)
[2016-12-05] MEDS: amLODIPine 10 MG TAB PO SCH (12:08)
[2016-12-05] MEDS: ACETAMINOPHEN 500 MG TAB PO SCH ×2 (13:17→21:17)
[2016-12-05] MEDS ORDERED: SLF 3 ML SYR IV PRN (17:15)
[2016-12-05] MEDS ORDERED: tiZANidine 4 MG TAB PO PRN (17:30)
[2016-12-05] MEDS ORDERED: METOCLOPRAMIDE INJ 10MG/2ML VIAL (J2765) IV PRN (18:00)
[2016-12-05] MEDS: SLF 3 ML SYR IV SCH (21:18)
[2016-12-06] VITALS (10 sets, daily range): BP systolic 129–195; BP diastolic 63–88
--- NOTE | 2016-12-06 00:08 | IPNPDOC ---
Subjective General Date Seen The patient was seen on 12/05/16. Subjective Chief Complaint/HPI The patient is a 71-year-old female admitted with a reason for visit of Cerebral Vascular Accident. Pt reports a Salguero today. Constant. 8/10 on pain scale. Frontal area to the back of her head into neck. Is still on NPO General: Denies: Chills, Fatigue, Malaise, Night Sweats Constitutional: Denies: Chills, Fever, Night Sweats Eyes: Denies: Pain, Vision change ENT: Denies: Dysphagia, Ear Pain, Head Aches Pulmonary: Denies: Cough, Dyspnea Cardiovascular: Denies: Chest Pain, Lt Headedness, Orthopnea, Palpitations, Paroxysmal Noc. Dyspnea Objective Physical Examination General Exam: Positive: Alert, No Acute Distress Eye Exam: Positive: Conjunctiva & lids normal, EOMI, PERRLA, Negative: Sclera icteric ENT Exam: Positive: Atraumatic, Mucous membr. moist/pink, Pharynx Normal Chest Exam: Positive: Other (fine crackles in the base of lungs), Negative: Clear to auscultation Heart Exam: Positive: Normal S1, Normal S2, Rate Normal, Regular Rhythm, Negative: Murmurs, Rubs Abdomen Exam: Positive: Normal bowel sounds, Soft, Negative: Hepatospenomegaly, Tenderness Extremity Exam: Positive: Normal pulses, Negative: Clubbing, Cyanosis, Edema Neuro Exam: Positive: Cranial Nerves 3-12 NL, Normal Speech, Strength at 5/5 X4 ext RAD Interpretation STUDY: Rad Actions: Report Reviewed Assessment /Plan Problems Problems: (1) Hypertensive emergency Status: Acute Problem Text: Pt was admitted with severe SALGUERO, and hypertensive emergency. Pt had CT and MRI of the brain. Was reviewed by neuroradiology, negative for acute stroke. Currently on lisinopril and amlodipine. We will continue. BP on admission 209/144 and 214/100 in the ED. Pt currently in hypertensive range, but improved from admission. (2) Hypothyroid Status: Acute Problem Text: We will continue thyroid supplementation (3) Hypercholesteremia Status: Acute Problem Text: We will continue with Zocor. Plan/VTE VTE Prophylaxis Ordered?: Yes VS, I&O, 24H, Fishbone Vital Signs/I&O Vital Signs Date Time Temp Pulse Resp B/P Pulse Ox O2 Delivery O2 Flow Rate FiO2 12/05/16 07:39 97.4 80 18 175/79 Room Air 12/05/16 06:00 94 12/05/16 00:00 1.0 I&O- Last 24 Hours up to 6 AM 12/05/16 06:00 Intake Total 360 ml Output Total 850 ml Balance -490 ml Laboratory Data 24H LABS Laboratory Tests 2 12/04/16 12:35: Anion Gap 10, White Blood Count 12.0H, Red Blood Count 5.05, Hemoglobin 15.0, Hematocrit 43.9, Mean Corpuscular Volume 86.9, Mean Corpuscular Hemoglobin 29.6 , Mean Corpuscular Hemoglobin Concent 34.1, Red Cell Distribution Width 13.6, Platelet Count 224, Neutrophils (%) (Auto) 80.9H, Lymphocytes (%) (Auto) 11.4L, Monocytes (%) (Auto) 4.8, Eosinophils (%) (Auto) 1.6, Basophils (%) (Auto) 0.4, Neutrophils # (Auto) 9.7H, Lymphocytes # (Auto) 1.5, Monocytes # (Auto) 0.6, Eosinophils # (Auto) 0.2, Basophils # (Auto) 0.0, Blood Urea Nitrogen 15, Creatinine 1.01, Sodium Level 143, Potassium Level 3.3L, Chloride Level 107, Carbon Dioxide Level 26, Calcium Level 8.8, Erythrocyte Sedimentation Rate 11, Free Thyroxine 1.05, Glomerular Filtration Rate 57.2, Large Unclassified Cells # 0.1, Large Unclassified Cells % 0.8, Prothromb Time International Ratio 1.02, Prothrombin Time 13.5, Thyroid Stimulating Hormone (TSH) 5.840H 12/04/16 20:21: Creatine Kinase MB 1.5, Creatine Kinase MB Relative Index 2.08, Total Creatine Kinase 72, Troponin I < 0.02 12/05/16 04:14: Anion Gap 9, Blood Urea Nitrogen 14, Creatinine 0.83, Sodium Level 145, Potassium Level 3.9, Chloride Level 108H, Carbon Dioxide Level 28, Calcium Level 8.7L, Glomerular Filtration Rate > 60.0, Creatine Kinase MB 1.4, Creatine Kinase MB Relative Index 2.37, Total Creatine Kinase 59, Troponin I < 0.02, Aspartate Amino Transf (AST/SGOT) 18, Alanine Aminotransferase (ALT/SGPT) 30, Alkaline Phosphatase 90, Total Bilirubin 0.5, Total Protein 6.8, Albumin 3.8, Albumin/Globulin Ratio 1.27, Magnesium Level 2.2 CBC/BMP Laboratory Tests 12/04/16 12:35 Calcium Level 8.8, Red Blood Count 5.05, Mean Corpuscular Volume 86.9, Mean Corpuscular Hemoglobin 29.6, Mean Corpuscular Hemoglobin Concent 34.1, Red Cell Distribution Width 13.6, Neutrophils (%) (Auto) 80.9 H, Lymphocytes (%) (Auto) 11.4 L, Monocytes (%) (Auto) 4.8, Eosinophils (%) (Auto) 1.6, Basophils (%) ( Auto) 0.4, Neutrophils # (Auto) 9.7 H, Lymphocytes # (Auto) 1.5, Monocytes # ( Auto) 0.6, Eosinophils # (Auto) 0.2, Basophils # (Auto) 0.0 12/05/16 04:14 Calcium Level 8.7 L, Red Blood Count 4.99, Mean Corpuscular Volume 87.7, Mean Corpuscular Hemoglobin 29.4, Mean Corpuscular Hemoglobin Concent 33.5, Red Cell Distribution Width 13.4, Aspartate Amino Transf (AST/SGOT) 18, Alanine Aminotransferase (ALT/SGPT) 30, Alkaline Phosphatase 90, Total Bilirubin 0.5, Total Protein 6.8, Albumin 3.8 Microbiology Microbiology 12/04/16 MRSA Screen, Received Pending MARLEEN ABREU DO Dec 05, 2016 08:06
[2016-12-06 04:39] LABS: MEAN CORPUSCULAR HEMOGLOBIN 29.3 pg (27.0-33.0); MEAN CORPUSCULAR HGB CONC 32.9 g/dl (32.0-36.5); MEAN CORPUSCULAR VOLUME 88.9 fl (80.0-96.0); RED CELL DISTRIBUTION WIDTH 13.9 % (11.5-14.5); WHITE BLOOD COUNT 9.6 K/mm3 (4.0-10.0)
[2016-12-06 05:09] LABS: ALBUMIN 3.8 GM/DL (3.2-5.2); ALBUMIN/GLOBULIN RATIO 1.06 (1.00-1.93); ALKALINE PHOSPHATASE 83 U/L (45-117); ALT/SGPT 23 U/L (12-78); ANION GAP 8 MEQ/L (8-16); AST/SGOT 16 U/L (15-37); BILIRUBIN,TOTAL 0.7 MG/DL (0.2-1.0); BLOOD UREA NITROGEN 17 MG/DL (7-18); CALCIUM LEVEL 8.7 MG/DL (8.8-10.2); CARBON DIOXIDE LEVEL 29 MEQ/L (21-32); CHLORIDE LEVEL 106 MEQ/L (98-107); CREATININE FOR GFR 0.78 MG/DL (0.55-1.02); GLOMERULAR FILTRATION RATE > 60.0 (>39); GLUCOSE, FASTING 81 MG/DL (83-110); MAGNESIUM LEVEL 2.4 MG/DL (1.8-2.4); POTASSIUM SERUM 3.6 MEQ/L (3.5-5.1); SODIUM LEVEL 143 MEQ/L (136-145); TOTAL PROTEIN 7.4 GM/DL (6.4-8.2)
--- NOTE | 2016-12-06 05:44 | ECHO ---
DATE OF PROCEDURE: 12/05/2015 AGE: 71 GENDER: Female REFERRING PHYSICIAN: Dr. Burak Moore. HEIGHT: 65 inches. WEIGHT: 180 pounds. BODY SURFACE AREA: 1.89 sq m. INPATIENT: Intensive care unit (ICU) Room 3202. INDICATION: Cerebrovascular accident. MEASUREMENTS: 2D MEASUREMENTS: RV - 4.0 cm LV- 3.6 cm Septum - 1.3 cm Posterior wall - 1.3cm Aortic root: 3.7 cm LA - 3.4 LVEF - 65% DOPPLER MEASUREMENTS: AV - 1.08 m/s LVOT - 0.7 m/s LVOT diameter - 2.1 cm E: 71 A: 97 EA ratio 0.7 Early mitral deacceleration time - 141 ms E-prime - 4.2 A-prime - 12 E/E prime ratio 16.8 PV - 0.6 m/s Pulmonary artery acceleration time - 95 ms RVSP - 45 mmHg IVC - 2.2 cm - 2.2 cm COMMENTS: Normal sinus rhythm without intraventricular conduction disturbance. Left atrial size upper limits of normal. Normal left ventricular size. Right heart chamber sizes were also upper limits of normal. LV wall thickness was mildly increased symmetrically. On real-time imaging from the parasternal and apical projections, wall motion was symmetrical and hyperkinetic. Mildly thickened mitral annulus but normal leaflet thickness and excursion with no posterior systolic buckling. Three equal size aortic cusps with marginally thickened cusp edges but adequate cusp separation. Normal aortic root size. No apparent intracardiac mass. There was a small anterior and posterior echo-free space measuring 0.5 cm without cardiac chamber compression or other sign of cardiac tamponade. Color flow Doppler study taken from the parasternal and apical projection showed trace aortic, very mild mitral and mild tricuspid insufficiency. Guided continuous wave Doppler of her aortic valve showed a normal peak systolic velocity against LV outflow tract obstruction. Pulsed and continuous wave Doppler of her LV inflow tract taken from the apical four-chamber projection showed normal diastolic filling velocities against mitral stenosis. There was more prominent late diastolic/atrial dependent filling pattern. LV diastolic dysfunction was further confirmed using tissue Doppler of her mitral annulus with estimated mean left atrial pressure at least mildly increased. Pulsed and continuous wave Doppler of her pulmonary trunk showed a normal peak systolic velocity against RV outflow tract obstruction. Her pulmonary artery acceleration time was abbreviated consistent with an elevated pulmonary vascular resistance. Guided continuous wave Doppler of her tricuspid valve allowed our estimation of her right ventricular systolic pressure (moderately increased). Her inferior vena cava was at least mildly dilated with reduced respiratory collapse suggestive of an elevated central venous pressure. CONCLUSIONS: Unable to detect an intracardiac source of embolic material. Mild aortic valvular sclerosis without stenosis and only trace insufficiency. Mild mitral annular calcification without inflow tract obstruction and only very mild insufficiency. Mild concentric left ventricular hypertrophy with preserved systolic function. Normal left atrial size with Doppler evidence of an impairment of LV diastolic relaxation and mildly elevated estimated mean left atrial pressure. Normal right heart chamber sizes with Doppler evidence of moderate pulmonary hypertension. Mildly dilated IVC with reduced respiratory collapse suggestive of an elevated central venous pressure. Mild - moderate pericardial effusion without evidence of cardiac compression or tamponade.
[2016-12-06] MEDS: LEVOTHYROXINE 0.088 MG TAB (88 MCG) PO SCH (05:51)
[2016-12-06] MEDS: ACETAMINOPHEN 500 MG TAB PO SCH ×3 (05:51→21:23)
[2016-12-06] MEDS: SLF 3 ML SYR IV SCH ×3 (05:52→21:12)
[2016-12-06] MEDS: SIMVASTATIN 40 MG TAB PO SCH (08:41)
[2016-12-06] MEDS: ASPIRIN 325 MG TAB PO SCH (08:41)
[2016-12-06] MEDS: OMEPRAZOLE 20 MG CAP PO SCH (08:42)
[2016-12-06] MEDS: ONDANSETRON 4MG/2ML VIAL (J2405) IV PRN (08:42)
[2016-12-06] MEDS: amLODIPine 10 MG TAB PO SCH (08:42)
--- NOTE | 2016-12-06 20:52 | EDDOCDS ---
Physician Documentation [facility] Name: Leila Hernández Age: 71 yrs Sex: Female : 1945 Arrival Date: 12/04/2016 Time: 11:44 Bed MRI Private MD: Noé Michaels M.D. Disposition: 12/04 14:33 Critical Care: Critical care not applicable. pc Disposition: 12/04/16 14:35 Hospitalization ordered by Burak Moore for Inpatient Admission. Preliminary diagnosis are Cerebral ischemia - subacute, right internal capsule, Essential (primary) hypertension. - Bed requested for M ICU. - Status is Inpatient Admission. mv5 - Condition is Stable. - Problem is new. - Symptoms have improved. HPI: 12:31 This 71 yrs old Female presents to ER via Walkin/Carried/Asstd with pc complaints of Neck and Upper Back Pain. 12:31 The history is obtained from the patient. She developed upper back and neck pain 8 days pc ago, left worse than right. She denies any traumatic or overuse injury. She has been using Tylenol without relief. She has Flexeril for low back spasms but do not use any for her upper back and neck. She denies any fevers or chills, cough, URI symptoms, chest pain, n/v/d, abd. pain, symptoms, rashes or joint pain. She says over the past 3 days, the pain has gotten worse and she is having pain in her forehead above her eyebrows only. She presents hypertensive with a known history of the same, but under control per her account. She denies any visual changes, focal neuro changes. At their worst, the symptoms were a 10 out of 10. In the emergency department, the symptoms are unchanged. The patient has not experienced similar symptoms in the past. The patient has not recently seen a physician. Historical: - Allergies: no known allergies; - Home Meds: 1. omeprazole 40 mg Oral cpDR 1 cap once daily 2. simvastatin 80 mg Oral tab daily 3. levothyroxine 88 mcg Oral cap 1 cap once daily 4. aspirin 325 mg Oral tab 1 tab once daily 5. ranitidine HCl 150 mg Oral tab prn 6. trazodone 50 mg Oral tab 0.5 tab prn 7. lisinopril 10 mg Oral tab 1 tab nightly (Last dose: 12/03/2016) 8. cyclobenzaprine 5 mg Oral tab 1 tab twice a day as needed - PMHx: Hypothyroidism; Hypertension; Hypercholesterolemia; GERD; - PSHx: Carpal Tunnel Repair- Bilateral; back surgery; Hysterectomy; Appendectomy; - The history from nurses notes was reviewed: and I agree with what is documented. - Social history: Smoking status: Patient states was never smoker of tobacco. No barriers to communication noted, The patient speaks fluent Welsh. - : The pt / caregiver states he / she is not on anticoagulants. Home medication list is obtained from the patient. - Hospitalizations: : No recent hospitalization is reported. - Exposure Risk Screening:: None identified. - Immunization history:: All immunizations up-to-date. - Family history: Not pertinent. - Social history:: the patient is a non-smoker, the patient does not drink alcohol. ROS: 12:31 All systems are negative except as listed. pc Exam: 12:31 General Appearance: alert, the patient is in mild distress. pc 12:31 EENT: normal eye inspection, pharynx normal, mucous membranes moist no apparent trauma, pain to palpation over frontal bones sinuses, without skin color change or swelling. 12:31 Neck: The exam is negative for acute abnormalities except: palpation reveals pain over both trapezius muscles, left worse than right, without bony point tenderness. Normal ROM but painful with lateral rotation only. No lymphadenopathy, goitre . 12:31 Respiratory: no respiratory distress, normal breath sounds, chest non-tender. 12:31 CVS: regular pulse rate, regular rhythm, normal S1 and S2, no murmurs, strong peripheral pulses, normal capillary refill. 12:31 Abdomen: soft, non-tender, no organomegaly, normal bowel sounds. 12:31 Back: Pain is noted in the left trapezius and right trapezius. 12:31 Skin: skin color is normal, warm, dry, no rashes, no lesions. 12:31 Extremities: The extremities have a grossly normal appearance, are non-tender, without acute ROM abnormalities. 12:31 Neuro: oriented x 3, cranial nerves normal as tested, no motor deficits, no sensory deficits, normal gait, Cerebellar function: normal finger to nose testing, Romberg testing is negative, Deep tendon reflexes are normal, normal upgoing toes are appreciated bilaterally. 12:31 Psych: normal mood. Vital Signs: 11:46 BP 209 / 144; Pulse 92; Resp 18; Temp 97.6(O); Pulse Ox 100% on R/A; Weight 81.65 kg / bnb 180.01 lbs (R); Height 5 ft. 5 in. (165.10 cm) (R); Pain 10/10; 11:46 BP 165 / 95 LA Sitting (auto/reg); bnb 14:20 BP 214 / 100; Pulse 92; Resp 18; Pain 7/10; hs1 14:41 BP 177 / 85; Pulse 82; Resp 18; Pulse Ox 91% ; Pain 8/10; hs1 15:55 BP 167 / 74 (auto/); hs1 15:56 Pulse 78 MON; Pulse Ox 96% ; hs1 16:10 BP 165 / 75 (auto/); hs1 16:10 Pulse 70 MON; Resp 18; Pulse Ox 96% ; hs1 16:40 BP 160 / 77 (auto/); hs1 16:40 Pulse 62 MON; Resp 18; Temp 96.7(O); Pulse Ox 98% ; hs1 16:55 Pulse 62 MON; Pulse Ox 98% ; hs1 16:55 BP 184 / 91 (auto/); hs1 17:10 BP 155 / 67 (auto/); hs1 17:10 Pulse 74 MON; Pulse Ox 98% ; hs1 17:25 BP 177 / 93 (auto/); hs1 17:25 Pulse 62 MON; Pulse Ox 99% ; hs1 17:39 Pulse 68 MON; Pulse Ox 100% ; hs1 17:40 BP 191 / 87 (auto/); hs1 17:55 BP 188 / 90 (auto/); hs1 17:55 Pulse 64 MON; Pulse Ox 100% ; hs1 19:31 BP 184 / 85; Pulse 76; Resp 18; Temp 97.6(TE); Pulse Ox 96% on 2 lpm NC; mv5 11:46 Body Mass Index 29.95 (81.65 kg, 165.10 cm) bnb MDM: 12:00 ECG WITH READING ER PHYS+CARDIAG ordered. EDMS 12:30 IV Saline Lock ordered. pc 12:31 morphine 2 mg IVP once ordered. pc 12:31 Ondansetron 4 mg IVP once ordered. pc 12:31 Diazepam 2 mg IVP once ordered. pc 12:31 CBC with Diff Ordered. EDMS 12:31 MED Profile Ordered. EDMS 12:31 TSH with Free T4 Ordered. EDMS 12:31 CT Head Without Contrast Ordered. EDMS 12:31 Differential Diagnosis: frontal headache/sinus pain r/o sinusitis; bilateral trapezius pc muscle pain; elevated BP due to pain r/o hypertensive urgency. Plan: labs, meds, imaging, EKG. 13:28 CBC with Diff Reviewed. pc 13:28 MED Profile Reviewed. pc 13:28 TSH with Free T4 Reviewed. pc 13:36 Industrial Rehabilitation Consultant/Pulse Ox/q 30 min VS ordered. pc 13:36 MRI Screening Tool - Place on chart, inform RN ordered. pc 13:37 BED REQUEST+ADM ordered. EDMS 13:38 -MRA-Brain without contrast Ordered. EDMS 13:38 -MRA-Carotid with contrast Ordered. EDMS 13:38 -MRI-Brain without Ordered. EDMS 13:43 morphine 4 mg IVP every 15 minutes; Document pain score/vitals after each dose (Hold if pc SBP < 90mmHg) x2 ordered. 14:03 Data reviewed: old medical records, vital signs, nurses notes, lab test results, all pc radiology studies and available results. 14:05 Chest, 1 View Ordered. EDMS 14:07 MRI Screening Tool - Place on chart, inform RN complete. jrd 14:31 Data reviewed: EKG(s). Test interpretation: EKG. pc 14:33 Test interpretation: LAB - all labs as ordered have been reviewed, interpreted and pc considered in the overall management of the clinical presentation; interpreted by Radiologist and personally reviewed, Head CT; 8.5mm hypodense lesion in right internal capsule consistent with subacute infarct. The patient has been re-examined and re-evaluated. The patient's symptoms have mildly improved after treatment. Physician consultation: Dr. Leo Herrera regarding consult. 14:33 Physician consultation: Dr. Burak Moore regarding admission. Disposition: The pc historical points, examination findings, and any diagnostic results supporting the provided diagnosis, were discussed with the patient or legal guardian. The need for further work-up and/or treatment in the hospital was explained. 14:40 Labetalol 10 mg IVP at bolus once over 2 mins ordered. hs1 14:49 Test interpretation: X-RAY - interpreted by me, 1 view chest no acute disease. pc 14:50 CARDIAC INJURY PROFILE Ordered. EDMS 14:50 TROPONIN Ordered. EDMS 14:50 PROTHROMBIN TIME PROFILE\E\INR Ordered. EDMS 14:51 PHYSICAL THERAPY EVAL & TREAT ordered. EDMS 14:51 Admission / Observation Status ordered. EDMS 14:51 ECHOCARD,DOPPLER/COLOR FLOW ordered. EDMS 14:52 NPO DIET ordered. EDMS 14:52 MRI Spine,Cervical without con Ordered. EDMS 14:55 ERYTHROCYTE SEDIMENTATION RATE Ordered. EDMS 15:25 [facility] Payment Agreement was scanned into [employer] and attached to record. mpb 15:25 Financial registration complete. mpb 16:38 Ondansetron 4 mg IVP once ordered. hs1 16:39 ECG WITH READING ER PHYS ordered. EDMS 16:54 Promethazine 12.5 mg IVP once; dilute and administer 30-60 minutes ordered. hs1 17:23 Admission / Observation Status ordered. EDMS 17:23 CT ANGIO HEAD Ordered. EDMS 17:24 CT ANGIO NECK Ordered. EDMS 19:32 CARDIAC INJURY PROFILE Ordered. EDMS 19:32 TROPONIN Ordered. EDMS 19:32 COMPLETE BLOOD COUNT Ordered. EDMS 19:32 COMPLETE COMPHRENSIVE METABOLI Ordered. EDMS 19:32 MAGNESIUM LEVEL Ordered. EDMS 02/ 12:37 ECG/EKG was scanned into [employer] and attached to record. 12:37 Trend VS was scanned into [employer] and attached to record. EC 14:31 Rate is 90 beats/min. Rhythm is regular, Normal Sinus Rhythm. QRS [place] is Normal. [place] pc interval is normal. QRS interval is normal. QT interval is normal. No Q waves. T waves are Inverted in lead III. ST Segment is depressed in leads V2, V3, <1mm. Clinical impression: Normal Sinus Rhythm, ST-T changes consistent with early repolarization., and LVH. Administered Medications: 12:44 Drug: Ondansetron 4 mg [ondansetron HCl 2 mg/mL intravenous solution (2 mL)] Route: hs1 IVP; Site: left antecubital; 12:44 Drug: Diazepam 2 mg [diazepam 5 mg/mL injection syringe (0.4 mL)] Route: IVP; Site: hs1 left antecubital; 13:55 Follow up: Response: No significant change. hs1 12:45 Drug: morphine 2 mg [morphine 2 mg/mL intravenous cartridge (1 mL)] Route: IVP; Site: hs1 left antecubital; 14:41 Follow up: BP 177 / 85; Pulse 82 bpm; Resp 18 bpm; Pulse Ox 91% ; Pain 8/10 Adult; hs1 Response: Pain is decreased 14:05 Drug: morphine 4 mg [morphine 4 mg/mL intravenous cartridge (1 mL)] Route: IVP; Site: hs1 left antecubital; 14:20 Follow up: BP 214 / 100; Pulse 92 bpm; Resp 18 bpm; Pain 7/10 Adult; Response: Pain is hs1 decreased 14:40 Drug: morphine 4 mg [morphine 4 mg/mL intravenous cartridge (1 mL)] Route: IVP; Site: hs1 left antecubital; 14:40 Drug: Labetalol 10 mg [labetalol 5 mg/mL intravenous solution (2 mL)] Route: IVP; Rate: hs1 bolus; Infused Over: 2 mins; Site: left antecubital; 16:00 Drug: Ondansetron 4 mg [ondansetron HCl 2 mg/mL intravenous solution (2 mL)] Route: hs1 IVP; Site: left antecubital; 16:54 CANCELLED (wrong MD): Promethazine 12.5 mg IVP once; dilute and administer 30-60 minuteshs1 17:12 Drug: Promethazine 12.5 mg [promethazine 25 mg/mL injection solution (0.5 mL)] Route: hs1 IVP; Site: left antecubital; Signatures: Dispatcher [employer] EDMS Fran Hussein MD MD pc Valencia Howell, Reg Reg gb Cassidy Alves, RN RN Koki Rodas mt4 Renetta PantojaRN RN rs3 Kenya Figueroa RN RN hs1 Miguel Suarez, FULL SERVICE SUPERVISOR FULL SERVICE SUPERVISOR jrd Delbert Oliveira, Reg Reg mpb Radha Martinez RN Mary Dey,RN RN mv5 The chart was reviewed and I authenticate all verbal orders and agree with the evaluation and treatment provided.Corrections: (The following items were deleted from the chart) 14:56 14:52 ERYTHROCYTE SEDIMENTATION RATE ordered. EDMS EDMS 16:54 16:54 Promethazine 12.5 mg IVP once; dilute and administer 30-60 minutes ordered. hs1 hs1 Attachments: 15:25 [facility] Payment Agreement [facility] 12/05 12:37 ECG/EKG gb Chart Complete MTDD
--- NOTE | 2016-12-06 20:52 | EDDOCDS ---
Physician Documentation [facility] Name: Leila Hernández Age: 71 yrs Sex: Female : 1945 Arrival Date: 12/04/2016 Time: 11:44 Bed MRI Private MD: Noé Michaels M.D. Disposition: 12/04 14:33 Critical Care: Critical care not applicable. pc Disposition: 12/04/16 14:35 Hospitalization ordered by Burak Moore for Inpatient Admission. Preliminary diagnosis are Cerebral ischemia - subacute, right internal capsule, Essential (primary) hypertension. - Bed requested for M ICU. - Status is Inpatient Admission. mv5 - Condition is Stable. - Problem is new. - Symptoms have improved. HPI: 12:31 This 71 yrs old Female presents to ER via Walkin/Carried/Asstd with pc complaints of Neck and Upper Back Pain. 12:31 The history is obtained from the patient. She developed upper back and neck pain 8 days pc ago, left worse than right. She denies any traumatic or overuse injury. She has been using Tylenol without relief. She has Flexeril for low back spasms but do not use any for her upper back and neck. She denies any fevers or chills, cough, URI symptoms, chest pain, n/v/d, abd. pain, symptoms, rashes or joint pain. She says over the past 3 days, the pain has gotten worse and she is having pain in her forehead above her eyebrows only. She presents hypertensive with a known history of the same, but under control per her account. She denies any visual changes, focal neuro changes. At their worst, the symptoms were a 10 out of 10. In the emergency department, the symptoms are unchanged. The patient has not experienced similar symptoms in the past. The patient has not recently seen a physician. Historical: - Allergies: no known allergies; - Home Meds: 1. omeprazole 40 mg Oral cpDR 1 cap once daily 2. simvastatin 80 mg Oral tab daily 3. levothyroxine 88 mcg Oral cap 1 cap once daily 4. aspirin 325 mg Oral tab 1 tab once daily 5. ranitidine HCl 150 mg Oral tab prn 6. trazodone 50 mg Oral tab 0.5 tab prn 7. lisinopril 10 mg Oral tab 1 tab nightly (Last dose: 12/03/2016) 8. cyclobenzaprine 5 mg Oral tab 1 tab twice a day as needed - PMHx: Hypothyroidism; Hypertension; Hypercholesterolemia; GERD; - PSHx: Carpal Tunnel Repair- Bilateral; back surgery; Hysterectomy; Appendectomy; - The history from nurses notes was reviewed: and I agree with what is documented. - Social history: Smoking status: Patient states was never smoker of tobacco. No barriers to communication noted, The patient speaks fluent Persian. - : The pt / caregiver states he / she is not on anticoagulants. Home medication list is obtained from the patient. - Hospitalizations: : No recent hospitalization is reported. - Exposure Risk Screening:: None identified. - Immunization history:: All immunizations up-to-date. - Family history: Not pertinent. - Social history:: the patient is a non-smoker, the patient does not drink alcohol. ROS: 12:31 All systems are negative except as listed. pc Exam: 12:31 General Appearance: alert, the patient is in mild distress. pc 12:31 EENT: normal eye inspection, pharynx normal, mucous membranes moist no apparent trauma, pain to palpation over frontal bones sinuses, without skin color change or swelling. 12:31 Neck: The exam is negative for acute abnormalities except: palpation reveals pain over both trapezius muscles, left worse than right, without bony point tenderness. Normal ROM but painful with lateral rotation only. No lymphadenopathy, goitre . 12:31 Respiratory: no respiratory distress, normal breath sounds, chest non-tender. 12:31 CVS: regular pulse rate, regular rhythm, normal S1 and S2, no murmurs, strong peripheral pulses, normal capillary refill. 12:31 Abdomen: soft, non-tender, no organomegaly, normal bowel sounds. 12:31 Back: Pain is noted in the left trapezius and right trapezius. 12:31 Skin: skin color is normal, warm, dry, no rashes, no lesions. 12:31 Extremities: The extremities have a grossly normal appearance, are non-tender, without acute ROM abnormalities. 12:31 Neuro: oriented x 3, cranial nerves normal as tested, no motor deficits, no sensory deficits, normal gait, Cerebellar function: normal finger to nose testing, Romberg testing is negative, Deep tendon reflexes are normal, normal upgoing toes are appreciated bilaterally. 12:31 Psych: normal mood. Vital Signs: 11:46 BP 209 / 144; Pulse 92; Resp 18; Temp 97.6(O); Pulse Ox 100% on R/A; Weight 81.65 kg / bnb 180.01 lbs (R); Height 5 ft. 5 in. (165.10 cm) (R); Pain 10/10; 11:46 BP 165 / 95 LA Sitting (auto/reg); bnb 14:20 BP 214 / 100; Pulse 92; Resp 18; Pain 7/10; hs1 14:41 BP 177 / 85; Pulse 82; Resp 18; Pulse Ox 91% ; Pain 8/10; hs1 15:55 BP 167 / 74 (auto/); hs1 15:56 Pulse 78 MON; Pulse Ox 96% ; hs1 16:10 BP 165 / 75 (auto/); hs1 16:10 Pulse 70 MON; Resp 18; Pulse Ox 96% ; hs1 16:40 BP 160 / 77 (auto/); hs1 16:40 Pulse 62 MON; Resp 18; Temp 96.7(O); Pulse Ox 98% ; hs1 16:55 Pulse 62 MON; Pulse Ox 98% ; hs1 16:55 BP 184 / 91 (auto/); hs1 17:10 BP 155 / 67 (auto/); hs1 17:10 Pulse 74 MON; Pulse Ox 98% ; hs1 17:25 BP 177 / 93 (auto/); hs1 17:25 Pulse 62 MON; Pulse Ox 99% ; hs1 17:39 Pulse 68 MON; Pulse Ox 100% ; hs1 17:40 BP 191 / 87 (auto/); hs1 17:55 BP 188 / 90 (auto/); hs1 17:55 Pulse 64 MON; Pulse Ox 100% ; hs1 19:31 BP 184 / 85; Pulse 76; Resp 18; Temp 97.6(TE); Pulse Ox 96% on 2 lpm NC; mv5 11:46 Body Mass Index 29.95 (81.65 kg, 165.10 cm) bnb MDM: 12:00 ECG WITH READING ER PHYS+CARDIAG ordered. EDMS 12:30 IV Saline Lock ordered. pc 12:31 morphine 2 mg IVP once ordered. pc 12:31 Ondansetron 4 mg IVP once ordered. pc 12:31 Diazepam 2 mg IVP once ordered. pc 12:31 CBC with Diff Ordered. EDMS 12:31 MED Profile Ordered. EDMS 12:31 TSH with Free T4 Ordered. EDMS 12:31 CT Head Without Contrast Ordered. EDMS 12:31 Differential Diagnosis: frontal headache/sinus pain r/o sinusitis; bilateral trapezius pc muscle pain; elevated BP due to pain r/o hypertensive urgency. Plan: labs, meds, imaging, EKG. 13:28 CBC with Diff Reviewed. pc 13:28 MED Profile Reviewed. pc 13:28 TSH with Free T4 Reviewed. pc 13:36 [employer] 2[employer] Shift/Pulse Ox/q 30 min VS ordered. pc 13:36 MRI Screening Tool - Place on chart, inform RN ordered. pc 13:37 BED REQUEST+ADM ordered. EDMS 13:38 -MRA-Brain without contrast Ordered. EDMS 13:38 -MRA-Carotid with contrast Ordered. EDMS 13:38 -MRI-Brain without Ordered. EDMS 13:43 morphine 4 mg IVP every 15 minutes; Document pain score/vitals after each dose (Hold if pc SBP < 90mmHg) x2 ordered. 14:03 Data reviewed: old medical records, vital signs, nurses notes, lab test results, all pc radiology studies and available results. 14:05 Chest, 1 View Ordered. EDMS 14:07 MRI Screening Tool - Place on chart, inform RN complete. jrd 14:31 Data reviewed: EKG(s). Test interpretation: EKG. pc 14:33 Test interpretation: LAB - all labs as ordered have been reviewed, interpreted and pc considered in the overall management of the clinical presentation; interpreted by Radiologist and personally reviewed, Head CT; 8.5mm hypodense lesion in right internal capsule consistent with subacute infarct. The patient has been re-examined and re-evaluated. The patient's symptoms have mildly improved after treatment. Physician consultation: Dr. Leo Herrera regarding consult. 14:33 Physician consultation: Dr. Burak Moore regarding admission. Disposition: The pc historical points, examination findings, and any diagnostic results supporting the provided diagnosis, were discussed with the patient or legal guardian. The need for further work-up and/or treatment in the hospital was explained. 14:40 Labetalol 10 mg IVP at bolus once over 2 mins ordered. hs1 14:49 Test interpretation: X-RAY - interpreted by me, 1 view chest no acute disease. pc 14:50 CARDIAC INJURY PROFILE Ordered. EDMS 14:50 TROPONIN Ordered. EDMS 14:50 PROTHROMBIN TIME PROFILE\E\INR Ordered. EDMS 14:51 PHYSICAL THERAPY EVAL & TREAT ordered. EDMS 14:51 Admission / Observation Status ordered. EDMS 14:51 ECHOCARD,DOPPLER/COLOR FLOW ordered. EDMS 14:52 NPO DIET ordered. EDMS 14:52 MRI Spine,Cervical without con Ordered. EDMS 14:55 ERYTHROCYTE SEDIMENTATION RATE Ordered. EDMS 15:25 [facility] Payment Agreement was scanned into [employer] and attached to record. mpb 15:25 Financial registration complete. mpb 16:38 Ondansetron 4 mg IVP once ordered. hs1 16:39 ECG WITH READING ER PHYS ordered. EDMS 16:54 Promethazine 12.5 mg IVP once; dilute and administer 30-60 minutes ordered. hs1 17:23 Admission / Observation Status ordered. EDMS 17:23 CT ANGIO HEAD Ordered. EDMS 17:24 CT ANGIO NECK Ordered. EDMS 19:32 CARDIAC INJURY PROFILE Ordered. EDMS 19:32 TROPONIN Ordered. EDMS 19:32 COMPLETE BLOOD COUNT Ordered. EDMS 19:32 COMPLETE COMPHRENSIVE METABOLI Ordered. EDMS 19:32 MAGNESIUM LEVEL Ordered. EDMS 02/ 12:37 ECG/EKG was scanned into [employer] and attached to record. 12:37 Trend VS was scanned into [employer] and attached to record. EC 14:31 Rate is 90 beats/min. Rhythm is regular, Normal Sinus Rhythm. QRS [place] is Normal. RI pc interval is normal. QRS interval is normal. QT interval is normal. No Q waves. T waves are Inverted in lead III. ST Segment is depressed in leads V2, V3, <1mm. Clinical impression: Normal Sinus Rhythm, ST-T changes consistent with early repolarization., and LVH. Administered Medications: 12:44 Drug: Ondansetron 4 mg [ondansetron HCl 2 mg/mL intravenous solution (2 mL)] Route: hs1 IVP; Site: left antecubital; 12:44 Drug: Diazepam 2 mg [diazepam 5 mg/mL injection syringe (0.4 mL)] Route: IVP; Site: hs1 left antecubital; 13:55 Follow up: Response: No significant change. hs1 12:45 Drug: morphine 2 mg [morphine 2 mg/mL intravenous cartridge (1 mL)] Route: IVP; Site: hs1 left antecubital; 14:41 Follow up: BP 177 / 85; Pulse 82 bpm; Resp 18 bpm; Pulse Ox 91% ; Pain 8/10 Adult; hs1 Response: Pain is decreased 14:05 Drug: morphine 4 mg [morphine 4 mg/mL intravenous cartridge (1 mL)] Route: IVP; Site: hs1 left antecubital; 14:20 Follow up: BP 214 / 100; Pulse 92 bpm; Resp 18 bpm; Pain 7/10 Adult; Response: Pain is hs1 decreased 14:40 Drug: morphine 4 mg [morphine 4 mg/mL intravenous cartridge (1 mL)] Route: IVP; Site: hs1 left antecubital; 14:40 Drug: Labetalol 10 mg [labetalol 5 mg/mL intravenous solution (2 mL)] Route: IVP; Rate: hs1 bolus; Infused Over: 2 mins; Site: left antecubital; 16:00 Drug: Ondansetron 4 mg [ondansetron HCl 2 mg/mL intravenous solution (2 mL)] Route: hs1 IVP; Site: left antecubital; 16:54 CANCELLED (wrong MD): Promethazine 12.5 mg IVP once; dilute and administer 30-60 minuteshs1 17:12 Drug: Promethazine 12.5 mg [promethazine 25 mg/mL injection solution (0.5 mL)] Route: hs1 IVP; Site: left antecubital; Signatures: Dispatcher [employer] EDMS Fran Hussein MD MD pc Valencia Howell, Reg Reg gb Cassidy Alves, RN RN Koki Rodas mt4 Renetta PantojaRN RN rs3 Kenya Figueroa RN RN hs1 Miguel Suarez, VIDEO TAPE EDITOR VIDEO TAPE EDITOR jrd Delbert Oliveira, Reg Reg mpb Radha Martinez RN Mary Dey,RN RN mv5 The chart was reviewed and I authenticate all verbal orders and agree with the evaluation and treatment provided.Corrections: (The following items were deleted from the chart) 14:56 14:52 ERYTHROCYTE SEDIMENTATION RATE ordered. EDMS EDMS 16:54 16:54 Promethazine 12.5 mg IVP once; dilute and administer 30-60 minutes ordered. hs1 hs1 Attachments: 15:25 [facility] [place] Agreement [facility] 12/05 12:37 ECG/EKG gb Chart Complete MTDD
--- NOTE | 2016-12-06 20:52 | EDDOCDS ---
Nurse's Notes [facility] Name: Leila Hernández Age: 71 yrs Sex: Female : 1945 Arrival Date: 12/04/2016 Time: 11:44 Bed MRI Private MD: Noé Michaels M.D. Diagnosis: Cerebral ischemia-subacute, right internal capsule;Essential (primary) hypertension Presentation: 12/04 11:49 Presenting complaint: Patient states: headache, lightheadedness and neck pain on and rs3 off for a week. had some relief with Tylenol. better laying down, worse with getting up or activities. denies radicular pain/numbness to arms. Risk Factors No acute neurological deficit is noted. Adult Sepsis Screening: The patient does not have new or worsening altered mentation. Patient's respiratory rate is less than 22. Systolic blood pressure is greater than 100. Patient has a qSOFA score of 0- Negative Sepsis Screen. Suicide/Homicide risk assessment- the patient denies having any suicidal and/or homicidal ideations and does not present with any other emotional, behavioral or mental health complaints. Status: Patient is not a consulting services associate or dependent. Transition of care: patient was not received from another setting of care. 11:49 Acuity: SEBASTIAN Level 3 rs3 11:49 Method Of Arrival: Walkin/Carried/Asstd rs3 Triage Assessment: 11:53 General: Appears in no apparent distress. Pain: Pain currently is 6 out of 10 on a pain rs3 scale. Musculoskeletal: Reports Pain is 8 out of 10 on a pain scale. Historical: - Allergies: no known allergies; - Home Meds: 1. omeprazole 40 mg Oral cpDR 1 cap once daily 2. simvastatin 80 mg Oral tab daily 3. levothyroxine 88 mcg Oral cap 1 cap once daily 4. aspirin 325 mg Oral tab 1 tab once daily 5. ranitidine HCl 150 mg Oral tab prn 6. trazodone 50 mg Oral tab 0.5 tab prn 7. lisinopril 10 mg Oral tab 1 tab nightly (Last dose: 12/03/2016) 8. cyclobenzaprine 5 mg Oral tab 1 tab twice a day as needed - PMHx: Hypothyroidism; Hypertension; Hypercholesterolemia; GERD; - PSHx: Carpal Tunnel Repair- Bilateral; back surgery; Hysterectomy; Appendectomy; - The history from nurses notes was reviewed: and I agree with what is documented. - Social history: Smoking status: Patient states was never smoker of tobacco. No barriers to communication noted, The patient speaks fluent Malay. - : The pt / caregiver states he / she is not on anticoagulants. Home medication list is obtained from the patient. - Hospitalizations: : No recent hospitalization is reported. - Exposure Risk Screening:: None identified. - Immunization history:: All immunizations up-to-date. - Family history: Not pertinent. - Social history:: the patient is a non-smoker, the patient does not drink alcohol. Screenin:08 Screening information is obtained from the patient. Fall risk: No risks identified. hs1 Assistance ADL's: requires no assistance with activities of daily living. Abuse/DV Screen: The patient / caregiver reports he/she is: not in a situation that causes fear, pain or injury. Nutritional screening: No deficits noted. Advance Directives: There is no active DNR order. home support is adequate. Assessment: 12:40 General: Appears uncomfortable, Behavior is appropriate for age, cooperative. Pain: hs1 Location: forehead, left ear and left christianity Pain currently is 9 out of 10 on a pain scale. Quality of pain is described as sharp, shooting. Neurological: Level of Consciousness is awake, alert, obeys commands, Oriented to person, place, time, Second Cutter are equal bilaterally Moves all extremities. Gait is steady, Facial symmetry appears normal, Pupils are PERRLA. Neurological: Reports headache. Cardiovascular: Rhythm is sinus rhythm No ectopy. Respiratory: Airway is patent Respiratory effort is even, unlabored, Respiratory pattern is regular, symmetrical, Breath sounds are clear bilaterally. Derm: Skin is pink, warm & dry. normal. 13:10 Reassessment: Patient states feeling better. Patient states symptoms have improved. hs1 Patient reports pain in headache better now 8/10. Patient has been to CT and is aware of waiting for results. . 14:08 Pain: Location: forehead Pain currently is 8 out of 10 on a pain scale. Quality of pain hs1 is described as sharp, shooting. Cardiovascular: Rhythm is sinus rhythm No ectopy. Respiratory: No deficits noted. Derm: No deficits noted. 14:41 General: Patient aware of admission and need for MRI. Ordered received from hospitalist hs1 and administered. Patient visibly upset and family surrounds patient at this time. Patient administered morphine at this time as well per order. Patient trying to become comfortable and rest until more testing completed. . 15:50 General: Called by soils technician to come assess patient as he does not like patients hs1 color. This nurse went to assess patient and patient found diaphoretic and flushed. Patient reports intense nausea feeling and not feeling well. Patient immediately brought back to room and assessed. MD Moore paged for change in patient condition. . 16:10 General: Patient given Zofran per order and still feels uncomfortable. Abed in hs1 department at this time and is aware to visit patient. Patient still continues to feel "yucky". Nursing continuing to monitor closely. . 16:53 General: Behavior is patient continuing to still feel yucky. Teresa WOOD in to see patient hs1 and new orders received. Patient still diaphoretic and bradycardic. Family continues at bedside. . 17:50 General: Appears appears much more comfortable than previous. Family concerned about hs1 treatments and want to talk to Teresa again Re- plan of care. . Behavior is appropriate for age, cooperative. 18:24 General: Behavior is patient in CT at this time. Patient color much improved since MRI hs1 scan. Patient and family resting and aware of waiting for ICU bed at this time. . 19:31 General: Appears in no apparent distress, comfortable, Behavior is appropriate for age, mv5 cooperative, pleasant. Pain: Denies pain. Neurological: Level of Consciousness is awake, alert, Oriented to person, place, time, Facial symmetry appears normal, Pupils are PERRLA. Cardiovascular: Rhythm is sinus rhythm No ectopy. Respiratory: No deficits noted. Derm: Skin is pink, warm & dry. 19:34 General: Medicated per admission order for elevated BP. Pt tolerated well.. mv5 Vital Signs: 11:46 BP 209 / 144; Pulse 92; Resp 18; Temp 97.6(O); Pulse Ox 100% on R/A; Weight 81.65 kg bnb (R); Height 5 ft. 5 in. (165.10 cm) (R); Pain 10/10; 11:46 BP 165 / 95 LA Sitting (auto/reg); bnb 14:20 BP 214 / 100; Pulse 92; Resp 18; Pain 7/10; hs1 14:41 BP 177 / 85; Pulse 82; Resp 18; Pulse Ox 91% ; Pain 8/10; hs1 15:55 BP 167 / 74 (auto/); hs1 15:56 Pulse 78 MON; Pulse Ox 96% ; hs1 16:10 BP 165 / 75 (auto/); hs1 16:10 Pulse 70 MON; Resp 18; Pulse Ox 96% ; hs1 16:40 BP 160 / 77 (auto/); hs1 16:40 Pulse 62 MON; Resp 18; Temp 96.7(O); Pulse Ox 98% ; hs1 16:55 Pulse 62 MON; Pulse Ox 98% ; hs1 16:55 BP 184 / 91 (auto/); hs1 17:10 BP 155 / 67 (auto/); hs1 17:10 Pulse 74 MON; Pulse Ox 98% ; hs1 17:25 BP 177 / 93 (auto/); hs1 17:25 Pulse 62 MON; Pulse Ox 99% ; hs1 17:39 Pulse 68 MON; Pulse Ox 100% ; hs1 17:40 BP 191 / 87 (auto/); hs1 17:55 BP 188 / 90 (auto/); hs1 17:55 Pulse 64 MON; Pulse Ox 100% ; hs1 19:31 BP 184 / 85; Pulse 76; Resp 18; Temp 97.6(TE); Pulse Ox 96% on 2 lpm NC; mv5 11:46 Body Mass Index 29.95 (81.65 kg, 165.10 cm) bnb Vitals: 11:46 Log In Time: December 04, 2016 at 11:43. b ED Course: 11:45 Patient visited by Fadia Rocha PCA. bnb 11:45 Patient moved to Waiting bnb 11:46 Noé Michaels is Private Physician. bnb 11:48 Patient moved to Pre RCE bnb 11:52 Triage Initiated rs3 11:56 Kenya Figueroa, PAT is Primary Nurse. jjr 11:56 Patient moved to 9 jjr 12:02 Fran Hussein MD is Attending Physician. pc 12:11 Patient visited by Miguel Suarez PCA. jrd 12:11 EKG done. (by ED staff). Reviewed by Fran Hussein MD. jrd 12:18 Patient visited by Fran Hussein MD. pc 12:45 Inserted saline lock: 20 gauge in left antecubital area and blood collected. The hs1 patient tolerated the procedure well. 12:54 Patient visited by Kenya Figueroa, PAT. hs1 13:31 Patient visited by Kenya Figueroa, PAT. hs1 14:06 Patient visited by Kenya Figueroa, PAT. hs1 14:08 The patient / caregiver is instructed regarding the plan of care and ED course. hs1 14:35 Burak Moore is Hospitalizing Provider. pc 14:56 Patient moved to MRI deg 15:25 [facility] [place] Payment Agreement was scanned into [employer] and attached to record. mpb 16:46 Patient visited by Miguel Suarez PCA. jrd 16:46 EKG done. (by ED staff). Reviewed by Kenya Figueroa RN. jrd 19:10 Mary Hart,RN is Primary Nurse. mv5 19:36 No procedures done that require assistance. mv5 19:36 CT ANGIO NECK Returned. EDMS 19:36 CT ANGIO HEAD Returned. EDMS 02 12:37 ECG/EKG was scanned into [employer] and attached to record. gb 12:37 Trend VS was scanned into [employer] and attached to record. gb Administered Medications: 12/04 12:44 Drug: Ondansetron 4 mg [ondansetron HCl 2 mg/mL intravenous solution (2 mL)] Route: hs1 IVP; Site: left antecubital; 12:44 Drug: Diazepam 2 mg [diazepam 5 mg/mL injection syringe (0.4 mL)] Route: IVP; Site: hs1 left antecubital; 13:55 Follow up: Response: No significant change. hs1 12:45 Drug: morphine 2 mg [morphine 2 mg/mL intravenous cartridge (1 mL)] Route: IVP; Site: hs1 left antecubital; 14:41 Follow up: BP 177 / 85; Pulse 82 bpm; Resp 18 bpm; Pulse Ox 91% ; Pain 8/10 Adult; hs1 Response: Pain is decreased 14:05 Drug: morphine 4 mg [morphine 4 mg/mL intravenous cartridge (1 mL)] Route: IVP; Site: hs1 left antecubital; 14:20 Follow up: BP 214 / 100; Pulse 92 bpm; Resp 18 bpm; Pain 7/10 Adult; Response: Pain is hs1 decreased 14:40 Drug: morphine 4 mg [morphine 4 mg/mL intravenous cartridge (1 mL)] Route: IVP; Site: hs1 left antecubital; 14:40 Drug: Labetalol 10 mg [labetalol 5 mg/mL intravenous solution (2 mL)] Route: IVP; Rate: hs1 bolus; Infused Over: 2 mins; Site: left antecubital; 16:00 Drug: Ondansetron 4 mg [ondansetron HCl 2 mg/mL intravenous solution (2 mL)] Route: hs1 IVP; Site: left antecubital; 16:54 CANCELLED (wrong MD): Promethazine 12.5 mg IVP once; dilute and administer 30-60 minuteshs1 17:12 Drug: Promethazine 12.5 mg [promethazine 25 mg/mL injection solution (0.5 mL)] Route: hs1 IVP; Site: left antecubital; Attachments: 12:37 Trend VS gb Order Results: Lab Order: CBC with Diff; SPEC'M 12/04/16 12:35 Test: WHITE BLOOD COUNT; Value: 12.0; Range: 4.0-10.0; Abnormal: Above high normal; Units: K/mm3; Status: F Test: RED BLOOD COUNT; Value: 5.05; Range: 4.00-5.40; Units: M/mm3; Status: F Test: HEMOGLOBIN; Value: 15.0; Range: 12.0-16.0; Units: g/dl; Status: F Test: HEMATOCRIT; Value: 43.9; Range: 36.0-47.0; Units: %; Status: F Test: MEAN CORPUSCULAR VOLUME; Value: 86.9; Range: 80.0-96.0; Units: fl; Status: F Test: MEAN CORPUSCULAR HEMOGLOBIN; Value: 29.6; Range: 27.0-33.0; Units: pg; Status: F Test: MEAN CORPUSCULAR HGB CONC; Value: 34.1; Range: 32.0-36.5; Units: g/dl; Status: F Test: RED CELL DISTRIBUTION WIDTH; Value: 13.6; Range: 11.5-14.5; Units: %; Status: F Test: PLATELET COUNT, AUTOMATED; Value: 224; Range: 150-450; Units: k/mm3; Status: F Test: NEUTROPHILS %; Value: 80.9; Range: 36.0-66.0; Abnormal: Above high normal; Units: %; Status: F Test: LYMPH %; Value: 11.4; Range: 24.0-44.0; Abnormal: Below low normal; Units: %; Status: F Test: MONO %; Value: 4.8; Range: 0.0-5.0; Units: %; Status: F Test: EOS %; Value: 1.6; Range: 0.0-3.0; Units: %; Status: F Test: BASO %; Value: 0.4; Range: 0.0-1.0; Units: %; Status: F Test: LARGE UNSTAINED CELL %; Value: 0.8; Range: 0.0-4.0; Units: %; Status: F Test: NEUTROPHILS #; Value: 9.7; Range: 1.8-7.7; Abnormal: Above high normal; Units: K/mm3; Status: F Test: LYMPH #; Value: 1.5; Range: 1.5-4.5; Units: K/mm3; Status: F Test: MONO #; Value: 0.6; Range: 0.0-0.8; Units: K/mm3; Status: F Test: EOS #; Value: 0.2; Range: 0.0-0.50; Units: K/mm3; Status: F Test: BASO #; Value: 0.0; Range: 0.0-0.2; Units: K/mm3; Status: F Test: LARGE UNSTAINED CELL #; Value: 0.1; Range: 0.0-0.4; Units: K/mm3; Status: F Test: ERYTHROCYTE SEDIMENTATION RATE; Range: 0-30; Units: mm/hr; Status: I Lab Order: MED Profile; SPEC'M 12/04/16 12:35 Test: GLUCOSE, FASTING; Value: 123; Range: 83-110; Abnormal: Above high normal; Units: MG/DL; Status: F Test: BLOOD UREA NITROGEN; Value: 15; Range: 7-18; Units: MG/DL; Status: F Test: CREATININE FOR GFR; Value: 1.01; Range: 0.55-1.02; Units: MG/DL; Status: F Test: GLOMERULAR FILTRATION RATE; Value: 57.2; Range: >39; Status: F Test: SODIUM LEVEL; Value: 143; Range: 136-145; Units: MEQ/L; Status: F Test: POTASSIUM SERUM; Value: 3.3; Range: 3.5-5.1; Abnormal: Below low normal; Units: MEQ/L; Status: F Test: CHLORIDE LEVEL; Value: 107; Range: 98-107; Units: MEQ/L; Status: F Test: CARBON DIOXIDE LEVEL; Value: 26; Range: 21-32; Units: MEQ/L; Status: F Test: ANION GAP; Value: 10; Range: 8-16; Units: MEQ/L; Status: F Test: CALCIUM LEVEL; Value: 8.8; Range: 8.8-10.2; Units: MG/DL; Status: F Test Note: ; Units are mL/min/1.73 m2 Chronic Kidney Disease Staging per NKF: Stage I & II GFR >=60 Normal to Mildly Decreased Stage III GFR 30-59 Moderately Decreased Stage IV GFR 15-29 Severely Decreased Stage V GFR <15 Very Little GFR Left ESRD GFR <15 on ASSOCIATE ENGINEER Lab Order: TSH with Free T4; SPEC'12/04/16 12:35 Test: THYROID STIMULATING HORMONE; Value: 5.840; Range: 0.358-3.740; Abnormal: Above high normal; Units: uIU/ML; Status: F Test: FREE T4; Value: 1.05; Range: 0.76-1.46; Units: NG/DL; Status: F Lab Order: PROTHROMBIN TIME PROFILE\\E\\INR; SPEC'12/04/16 12:35 Test: PROTHROMBIN TIME; Value: 13.5; Range: 12.3-14.5; Units: SECONDS; Status: F Test: INR; Value: 1.02; Status: F Test Note: ; THERAPUTIC HUMAN INR VALUES INDICATIONS NORMAL RANGES PROPHYLAXIS/TREATMENT OF: VENOUS THROMBOSIS 2.0-3.0 PULMONARY EMBOLISM 2.0-3.0 PREVENTION OF SYSTEMIC EMBOLISM FROM: TISSUE HEART VALVES 2.0-3.0 ACUTE MYOCARDIAL INFARCTION 2.0-3.0 VALVULAR HEART DISEASE 2.0-3.0 ATRIAL FIBRILLATION 2.0-3.0 MECHANICAL VALVES(HIGH RISK) 2.5-3.5 RECURRENT MYOCARDIAL INFARCTION 2.5-3.5 Lab Order: ERYTHROCYTE SEDIMENTATION RATE; SPEC'M 12/04/16 12:35 Test: ERYTHROCYTE SEDIMENTATION RATE; Value: 11; Range: 0-30; Units: mm/hr; Status: F Radiology Order: CT ANGIO HEAD Test: CT ANGIO HEAD REASON FOR EXAMINATION: cva; ; CT angiogram of the head; Clinical history: stroke.; Technique: Multiple axial CT images were obtained through the head after a bolus of nonionic intraven; ous contrast. Coronal and sagittal reconstructed images were also obtained.; Findings: The intracerebral arterial structures including the [place], as well as the distal; portions of the carotid and vertebrobasilar arterial systems, demonstrate normal caliber and contour; . There is no evidence of aneurysm, stenosis, or thrombosis. No abnormal enhancing mass lesions are s; een within the brain. The ventricles and sulci are symmetric bilaterally. There is no midline shift,; mass effect, or extra-axial fluid collection. The osseous structures are unremarkable. The visualized; paranasal sinuses and mastoid air cells are clear.; Impression: Unremarkable CT angiogram of the head.; ; Radiology Order: CT ANGIO NECK Test: CT ANGIO NECK REASON FOR EXAMINATION: cva; neck pain; r/o carotid dissection; ; Clinical history: stroke.; Technique: Multiple axial CT images were obtained from the mid cranium through the mid mediastinum af; ter a bolus of nonionic intravenous contrast. Coronal and sagittal reconstructed images were also obt; ained. MIP images with 3-D reconstructions were also obtained.; No comparison is available.; Findings: The aorta appears unremarkable. The great thoracic vessels are grossly patent. The common c; arotid arteries and carotid arterial systems demonstrate normal caliber and contour bilaterally. Mini; mal atherosclerosis is seen at the carotid bifurcation bilaterally. There is no evidence of stenosis,; thrombosis, or aneurysm. The visualized portions of the [place] and intracerebral arterial; structures appear unremarkable. The vertebral basilar system is well maintained. The osseous structur; es don't demonstrate any gross abnormalities. Mild multilevel degenerative disc disease is seen in th; e cervical spine. The surrounding soft tissues are within normal limits.; Impression: Unremarkable CT Angiogram of the carotid arterial system. No evidence of stenosis, dissec; tion, or aneurysm. Minimal atherosclerotic changes bilaterally.; ; Outcome: 12/04 14:35 Decision to Hospitalize by Provider. pc 19:36 Discharge Assessment: Patient awake, alert and oriented x 3. No cognitive and/or mv5 functional deficits noted. Patient verbalized understanding of disposition instructions. patient administered narcotics - yes. Patient was admitted to the hospital or transferred to another facility. The following High Risk Discharge criteria are identified: None. Admitted to ICU. Condition: stable. MRI Study completed. Property :Personal belongings accompany Pt. 19:50 Patient left the ED. mv5 Signatures: Dispatcher [employer] EDMS Fran Hussein MD MD pc Murray, Denise, Associate Programmer Analyst Unit deg Valencia Howell, Reg Reg gb Cassidy Alves RN RN jjr Soosairaj, RosemaryRN RN rs3 Kenya Figueroa RN RN hs1 Miguel Suarez, WRAPPER STEMMER OPERATOR WRAPPER STEMMER OPERATOR d Delbert Oliveira, Reg Reg mpb Fadia Rocha, WRAPPER STEMMER OPERATOR WRAPPER STEMMER OPERATOR Mary Phillips,RN RN mv5 Corrections: (The following items were deleted from the chart) 12:45 12:45 Inserted saline lock: 20 gauge in left antecubital area hs1 hs1 Chart Complete MTDD
[2016-12-07] VITALS (8 sets, daily range): BP systolic 71–183; BP diastolic 50–97
--- NOTE | 2016-12-07 00:18 | IPNPDOC ---
Subjective General Date Seen The patient was seen on 12/06/16. Subjective Chief Complaint/HPI The patient is a 71-year-old female admitted with a reason for visit of Cerebral Vascular Accident. Pt reports improvement from yesterday. Still has a COREAS, feels better. Mainly in the back of her neck radiating to the occiput. Also admits to lightheadedness when changing positions. General: Reports: Normal Appetite, Denies: Chills, Fatigue, Malaise, Night Sweats Constitutional: Denies: Chills, Fever, Night Sweats ENT: Reports: Head Aches, Denies: Dysphagia, Ear Pain Pulmonary: Denies: Cough, Dyspnea Cardiovascular: Reports: Lt Headedness, Denies: Chest Pain, Orthopnea, Palpitations, Paroxysmal Noc. Dyspnea Gastrointestinal: Denies: Abdominal Pain, Constipation, Diarrhea, Nausea, Vomiting Genitourinary: Denies: Dysuria, Frequency, Incontinence, Retention Musculoskeletal: Reports: Neck Pain Objective Physical Examination General Exam: Positive: Alert, No Acute Distress Eye Exam: Positive: Conjunctiva & lids normal, EOMI, PERRLA, Negative: Sclera icteric ENT Exam: Positive: Atraumatic, Mucous membr. moist/pink, Pharynx Normal Chest Exam: Positive: Other (fine crackles in the base of lungs), Negative: Clear to auscultation Heart Exam: Positive: Normal S1, Normal S2, Rate Normal, Regular Rhythm, Negative: Murmurs, Rubs Abdomen Exam: Positive: Normal bowel sounds, Soft, Negative: Hepatospenomegaly, Tenderness Extremity Exam: Positive: Normal pulses, Negative: Clubbing, Cyanosis, Edema Neuro Exam: Positive: Cranial Nerves 3-12 NL, Normal Speech, Strength at 5/5 X4 ext Assessment /Plan Problems Problems: (1) Hypertensive emergency Status: Acute Problem Text: Pt was admitted with severe COREAS, and hypertensive emergency. Pt had CT and MRI of the brain. Was reviewed by neuroradiology, negative for acute stroke. Currently on lisinopril and amlodipine. We will continue. BP on admission 209/144 and 214/100 in the ED. Pt is still hypertensive this AM but has improved with antihypertensive. We will continue to monitor. Orthostatics negative for orthostatic hypotension. We will f/u with PT evaluation (2) Headache Status: Acute Problem Text: Has tension type COREAS today. Reviewed neuro note, they started her on tizanidine. Pt stated that it helped some of her neck symptoms. However, she was still c/o post neck pain. Had tenderness to palpation in the neck. She was agreeable to OMT. She was treated with soft tissue technique including myofascial and counterstrain. Pt reported improved symptoms afterwards. (3) Hypothyroid Status: Acute Problem Text: We will continue thyroid supplementation (4) Hypercholesteremia Status: Acute Problem Text: We will continue with Zocor. Plan/VTE VTE Prophylaxis Ordered?: Yes VS, I&O, 24H, Fishbone Vital Signs/I&O Vital Signs Date Time Temp Pulse Resp B/P Pulse Ox O2 Delivery O2 Flow Rate FiO2 12/06/16 21:24 137/69 12/06/16 20:00 98.8 87 18 98 Room Air 12/06/16 04:00 2.0 I&O- Last 24 Hours up to 6 AM 12/06/16 06:00 Intake Total 490 ml Output Total 525 ml Balance -35 ml Laboratory Data 24H LABS Laboratory Tests 2 12/06/16 04:08: Blood Urea Nitrogen 17, Creatinine 0.78, Sodium Level 143, Potassium Level 3.6, Chloride Level 106, Carbon Dioxide Level 29, Calcium Level 8.7L, Aspartate Amino Transf (AST/SGOT) 16, Alanine Aminotransferase (ALT/SGPT) 23, Alkaline Phosphatase 83, Total Bilirubin 0.7, Total Protein 7.4, Albumin 3.8, Albumin/ Globulin Ratio 1.06, Anion Gap 8, Glomerular Filtration Rate > 60.0, Magnesium Level 2.4 CBC/BMP Laboratory Tests 12/06/16 04:08 Calcium Level 8.7 L, Aspartate Amino Transf (AST/SGOT) 16, Alanine Aminotransferase (ALT/SGPT) 23, Alkaline Phosphatase 83, Total Bilirubin 0.7, Total Protein 7.4, Albumin 3.8, Red Blood Count 4.59, Mean Corpuscular Volume 88.9, Mean Corpuscular Hemoglobin 29.3, Mean Corpuscular Hemoglobin Concent 32.9 , Red Cell Distribution Width 13.9 Microbiology Microbiology 12/04/16 MRSA Screen - Final, Complete MARLEEN ABREU DO Dec 06, 2016 23:48
[2016-12-07 05:11] LABS: MEAN CORPUSCULAR HEMOGLOBIN 29.4 pg (27.0-33.0); MEAN CORPUSCULAR HGB CONC 33.7 g/dl (32.0-36.5); MEAN CORPUSCULAR VOLUME 87.2 fl (80.0-96.0); RED CELL DISTRIBUTION WIDTH 13.7 % (11.5-14.5); WHITE BLOOD COUNT 8.6 K/mm3 (4.0-10.0)
[2016-12-07 05:22] LABS: ALBUMIN 3.8 GM/DL (3.2-5.2); ALBUMIN/GLOBULIN RATIO 1.12 (1.00-1.93); ALKALINE PHOSPHATASE 90 U/L (45-117); ALT/SGPT 25 U/L (12-78); ANION GAP 9 MEQ/L (8-16); AST/SGOT 19 U/L (15-37); BILIRUBIN,TOTAL 0.7 MG/DL (0.2-1.0); BLOOD UREA NITROGEN 15 MG/DL (7-18); CALCIUM LEVEL 8.9 MG/DL (8.8-10.2); CARBON DIOXIDE LEVEL 25 MEQ/L (21-32); CHLORIDE LEVEL 106 MEQ/L (98-107); CREATININE FOR GFR 0.75 MG/DL (0.55-1.02); GLOMERULAR FILTRATION RATE > 60.0 (>39); GLUCOSE, FASTING 88 MG/DL (83-110); MAGNESIUM LEVEL 2.3 MG/DL (1.8-2.4); POTASSIUM SERUM 3.5 MEQ/L (3.5-5.1); SODIUM LEVEL 140 MEQ/L (136-145); TOTAL PROTEIN 7.2 GM/DL (6.4-8.2)
[2016-12-07] MEDS: SLF 3 ML SYR IV SCH ×3 (06:00→21:45)
[2016-12-07] MEDS: ACETAMINOPHEN 500 MG TAB PO SCH ×3 (06:07→21:45)
[2016-12-07] MEDS: LEVOTHYROXINE 0.088 MG TAB (88 MCG) PO SCH (06:07)
[2016-12-07] MEDS: OMEPRAZOLE 20 MG CAP PO SCH (08:47)
[2016-12-07] MEDS: amLODIPine 10 MG TAB PO SCH (08:48)
[2016-12-07] MEDS: ASPIRIN 325 MG TAB PO SCH (08:48)
[2016-12-07] MEDS: SIMVASTATIN 40 MG TAB PO SCH (08:48)
[2016-12-07] MEDS ORDERED: NS 1,000 ML IV SCH ×2 (11:15→15:30)
[2016-12-08] VITALS: BP_SYST 119; BP_SYST 120; BP_SYST 131; BP_DIAS 69; BP_DIAS 75; BP_DIAS 76
[2016-12-08 04:00] VITALS: BP 141/69
[2016-12-08] MEDS: LEVOTHYROXINE 0.088 MG TAB (88 MCG) PO SCH (05:14)
[2016-12-08] MEDS: ACETAMINOPHEN 500 MG TAB PO SCH (05:15)
[2016-12-08] MEDS: SLF 3 ML SYR IV SCH (05:15)
[2016-12-08 05:44] LABS: MEAN CORPUSCULAR HEMOGLOBIN 29.8 pg (27.0-33.0); MEAN CORPUSCULAR HGB CONC 33.9 g/dl (32.0-36.5); MEAN CORPUSCULAR VOLUME 88.1 fl (80.0-96.0); RED CELL DISTRIBUTION WIDTH 13.7 % (11.5-14.5); WHITE BLOOD COUNT 7.9 K/mm3 (4.0-10.0)
[2016-12-08 06:03] LABS: ALBUMIN 3.6 GM/DL (3.2-5.2); ALBUMIN/GLOBULIN RATIO 1.13 (1.00-1.93); ALKALINE PHOSPHATASE 81 U/L (45-117); ALT/SGPT 31 U/L (12-78); ANION GAP 8 MEQ/L (8-16); AST/SGOT 20 U/L (15-37); BILIRUBIN,TOTAL 0.6 MG/DL (0.2-1.0); BLOOD UREA NITROGEN 14 MG/DL (7-18); CALCIUM LEVEL 8.6 MG/DL (8.8-10.2); CARBON DIOXIDE LEVEL 26 MEQ/L (21-32); CHLORIDE LEVEL 109 MEQ/L (98-107); CREATININE FOR GFR 0.75 MG/DL (0.55-1.02); GLOMERULAR FILTRATION RATE > 60.0 (>39); GLUCOSE, FASTING 99 MG/DL (83-110); MAGNESIUM LEVEL 2.1 MG/DL (1.8-2.4); POTASSIUM SERUM 3.3 MEQ/L (3.5-5.1); SODIUM LEVEL 143 MEQ/L (136-145); TOTAL PROTEIN 6.8 GM/DL (6.4-8.2)
--- NOTE | 2016-12-08 06:06 | IPNPDOC ---
Subjective General Date Seen The patient was seen on 12/07/16. Subjective Chief Complaint/HPI The patient is a 71-year-old female admitted with a reason for visit of Cerebral Vascular Accident. Events since last encounter pt seen and examined had positive orthostatics overnight Objective Physical Examination General Exam: Positive: Alert, No Acute Distress Eye Exam: Positive: Conjunctiva & lids normal, EOMI, PERRLA, Negative: Sclera icteric ENT Exam: Positive: Atraumatic, Mucous membr. moist/pink, Pharynx Normal Chest Exam: Positive: Other (fine crackles in the base of lungs), Negative: Clear to auscultation Heart Exam: Positive: Normal S1, Normal S2, Rate Normal, Regular Rhythm, Negative: Murmurs, Rubs Abdomen Exam: Positive: Normal bowel sounds, Soft, Negative: Hepatospenomegaly, Tenderness Extremity Exam: Positive: Normal pulses, Negative: Clubbing, Cyanosis, Edema Neuro Exam: Positive: Cranial Nerves 3-12 NL, Normal Speech, Strength at 5/5 X4 ext Assessment /Plan Problems Problems: (1) Orthostatic hypotension Status: Acute Problem Text: * will start pt on NS at a rate of 60 cc/hr (2) Hypertensive emergency Status: Acute Problem Text: Pt was admitted with severe COREAS, and hypertensive emergency. Pt had CT and MRI of the brain. Was reviewed by neuroradiology, negative for acute stroke. Currently on lisinopril and amlodipine. We will continue. BP on admission 209/144 and 214/100 in the ED. Pt is still hypertensive this AM but has improved with antihypertensive. We will continue to monitor. Orthostatics negative for orthostatic hypotension. We will f/u with PT evaluation (3) Headache Status: Acute Problem Text: Has tension type COREAS today. Reviewed neuro note, they started her on tizanidine. Pt stated that it helped some of her neck symptoms. However, she was still c/o post neck pain. Had tenderness to palpation in the neck. OMT helped pt 's symptoms which support the diagnosis of tension headaches (4) Hypothyroid Status: Acute Problem Text: We will continue thyroid supplementation (5) Hypercholesteremia Status: Acute Problem Text: We will continue with Zocor. Plan/VTE VTE Prophylaxis Ordered?: Yes VS, I&O, 24H, Fishbone Vital Signs/I&O Vital Signs Date Time Temp Pulse Resp B/P Pulse Ox O2 Delivery O2 Flow Rate FiO2 12/08/16 04:00 96.2 64 16 141/69 95 Room Air 12/06/16 04:00 2.0 I&O- Last 24 Hours up to 6 AM 12/08/16 06:00 Intake Total 1800 ml Output Total 900 ml Balance 900 ml Laboratory Data 24H LABS Laboratory Tests 2 12/08/16 05:36: Blood Urea Nitrogen 14, Creatinine 0.75, Sodium Level 143, Potassium Level 3.3L , Chloride Level 109H, Carbon Dioxide Level 26, Calcium Level 8.6L, Aspartate Amino Transf (AST/SGOT) 20, Alanine Aminotransferase (ALT/SGPT) 31, Alkaline Phosphatase 81, Total Bilirubin 0.6, Total Protein 6.8, Albumin 3.6, Albumin/ Globulin Ratio 1.13, Anion Gap 8, Glomerular Filtration Rate > 60.0, Magnesium Level 2.1 CBC/BMP Laboratory Tests 12/08/16 05:36 Calcium Level 8.6 L, Aspartate Amino Transf (AST/SGOT) 20, Alanine Aminotransferase (ALT/SGPT) 31, Alkaline Phosphatase 81, Total Bilirubin 0.6, Total Protein 6.8, Albumin 3.6, Red Blood Count 4.73, Mean Corpuscular Volume 88.1, Mean Corpuscular Hemoglobin 29.8, Mean Corpuscular Hemoglobin Concent 33.9 , Red Cell Distribution Width 13.7 Microbiology Microbiology 12/04/16 MRSA Screen - Final, Complete MISBAH BRADSHAW DO Dec 08, 2016 06:06
[2016-12-08 08:00] VITALS: BP 168/72
[2016-12-08] MEDS: OMEPRAZOLE 20 MG CAP PO SCH (08:33)
[2016-12-08] MEDS: ASPIRIN 325 MG TAB PO SCH (08:33)
[2016-12-08 08:34] VITALS: BP 141/69
[2016-12-08] MEDS: SIMVASTATIN 40 MG TAB PO SCH (08:34)
[2016-12-08] MEDS: amLODIPine 10 MG TAB PO SCH (08:34)
[2016-12-08] MEDS ORDERED: AMLO10TA2 PO (12:00)
[2016-12-08] MEDS ORDERED: ZANA4TAB PO (12:00)
[2016-12-08] MEDS ORDERED: LISI10TA4 PO (12:00)
--- NOTE | 2016-12-08 17:23 | CR ---
DATE OF CONSULTATION: 12/08/2016 REASON FOR CONSULTATION: Headache, suspicion of stroke. HISTORY OF PRESENT ILLNESS: The patient is a 71-year-old female with past medical history significant for hypertension who presents with a chief complaint of having severe headaches for the last few days. The patient also has been experiencing some upper trapezius pain, which is palpable. The patient denies having any numbness, tingling, or weakness of the face, arm, or leg. Denies having any double vision, vertigo, or slurring of her speech. Head CT was completed, and there was question whether the patient had any subacute stroke. MRI initially was recommended; however, the radiologist unfortunately stated that there was a subacute stroke and an acute stroke. After careful independent review and after getting in touch with neuroradiologist, Dr. Tani Newby, it was confirmed that the patient did not have any subacute or acute stroke. The patient had extensive small-vessel ischemic disease and significant chronic changes of the white matter. These were ocean import representative of hypoattenuation on the CT scan of the head and hyperintensities on FLAIR sequences of the MRI imaging. DWI imaging did not reveal any restricted diffusion. The patient remained on her aspirin and statin. The patient at the present time still states that she is having a mild headache and denies any focal neurological deficits. I had a long discussion with the patient and her entire family, reassuring them of her normal neurological exam and chronic changes on her MRI imaging. The patient denies any chest pain, palpitations, shortness of breath, nausea, vomiting, abdominal pain. All other review of systems were negative except as per history of present illness (HPI). PAST MEDICAL HISTORY: 1. Hypertension. 2. Hypothyroidism. 3. Gastroesophageal reflux disease. 4. Degenerative disc disease. PAST SURGICAL HISTORY: 1. Appendectomy with hysterectomy. 2. Back surgery. 3. Carpal tunnel repair bilaterally. SOCIAL HISTORY: The patient denies use of any tobacco, alcohol, or illicit drugs. FAMILY HISTORY: Noncontributory. ALLERGIES: None. PRESENT MEDICATIONS AT HOME: Include: - aspirin 325 mg by mouth daily - simvastatin 80 mg by mouth daily - omeprazole 40 mg by mouth daily - lisinopril 10 mg by mouth at bedtime - levothyroxine 88 mcg by mouth daily - acetaminophen 500 mg tablet by mouth every six hours as needed pain - cyclobenzaprine 5 mg by mouth twice a day as needed muscular spasm - ranitidine 150 mg by mouth daily as needed for heartburn - trazodone 25 mg by mouth at bedtime as needed for insomnia PHYSICAL EXAMINATION: Current height 5 feet 5 inches, current weight is 82.1 kg. Temperature is 97.9 degrees Fahrenheit, pulse rate is 93, respiratory rate is 18, blood pressure 166/72, and oxygenation is 97% on room air. The patient is alert, oriented to person, place, and time. Speech, language, comprehension, repetition are intact. Pupils are 3 mm, round and reactive to light. Extraocular movements are intact in all directions without nystagmus. Sensation in V1, V2, V3 is intact to light touch bilaterally. No facial asymmetry on activation. Hearing is subjectively equal to finger rub. No weakness of sternocleidomastoids bilaterally. Strength is 5/5, including bilateral deltoids, biceps, triceps, handgrip, iliopsoas, quadriceps, anterior tibialis. Deep tendon reflexes are 2's in the upper extremities and reduced in the lower extremities. Romberg testing was deferred. Sensory is intact to light touch, temperature, and vibration throughout. Coordination: Normal [id number] without any signs of ataxia or dysmetria. Palpation of the upper trapezius muscles does reveal some tenderness and pain. ASSESSMENT: 1. Headache secondary to hypertension. 2. Extensive microvascular disease of the brain, which is chronic due to underlying vascular risk factors. 3. Cervicalgia with cervical muscle spasm and upper back and trapezius muscular spasms. PLAN: 1. Continue aspirin 325 mg by mouth daily. Continue statin therapy. Optimize blood pressure in normalize gradually. 2. Recommend physical therapy (PT)/occupational therapy (OT) for neck pain. Recommend tizanidine 1 mg by mouth three times a day as needed for cervical muscular spasm. 3 Once the patient's blood pressure and pain are optimized, patient can be discharged home with followup in the [facility] Neurology Office with me in the next 2-4 weeks. History was obtained from the patient and the patient's family.
--- NOTE | 2016-12-10 00:07 | DS.PDOC ---
Discharge Summary General Date of Admission Dec 04, 2016 at 14:39 Date of Discharge Dec 06, 2016 Primary Care Physician: SEA COURTNEY M.D. Attending Physician: MISBAH BRADSHAW DO Specialist/Consultants Involve: MURRAY BAILEY MD Discharge Summary PROCEDURES PERFORMED DURING STAY: MRI Brain 12/04/16 CT Head 12/04/16 CT Neck 12/04/16 Imaging reviewed by neuroradiology and neurologist: patient "did not have any subacute or acute stroke. The patient had extensive small-vessel ischemic disease and significant chronic changes of the white matter. These were eligibility services representative of hypoattenuation on the CT scan of the head and hyperintensities on FLAIR sequences of the MRI imaging. DWI imaging did not reveal any restricted diffusion" COMPLICATIONS/CHIEF COMPLAINT: Headache DISCHARGE DIAGNOSES: 1. Hypertensive Emergency- Resolved 2. Headache secondary to hypertension 3. Cervicalgia 4. Tension headache 5. Hypothyroidism. 6. Gastroesophageal reflux disease. 7. Degenerative disc disease. 8. Hypothyroidism 9. Extensive microvascular disease of the brain- Chronic BRIEF HISTORY: This is a 71-year-old Female who presented to the ED on the day of admission with complaints of worsening headaches. She has a past medical history significant for hypertension, hypothyroidism, GERD, and degenerative disc disease. She developed a frontal headache that radiated to the occipital region which worsened during the course of 1 wk. the patient describes the pain as a pressure-like sensation, 7 out of 10 on a pain scale. She was stable on her feet. At the time, the patient denied any chest pain, palpitations, nausea, vomiting, abdominal pain. She denied syncopal episodes or seizures. Her blood pressure was 209/144 and 214/100. She was treated with IV labetalol and morphine in the ED. The patient was admitted to the medical unit for hypertensive emergency and intractable headaches. In the emergency department, the patient had a head CT and also MRI which was initially read as a subacute cerebral infarct. This was later reviewed by our neuroradiologist, Dr. Newby, and neurologist, Dr. Bailey, and interpreted as extensive small vessel ischemic disease findings and that the patient did not have any subacute or acute strokes. HOSPITAL COURSE: During her admission, we treated her hypertension by titrating her home medications. She was seen by neurology during this admission. They advised keeping her on aspirin, statin therapy, and controlling her blood pressure. Patient was evaluated by physical therapy and occupational therapy for neck pain. Neurology also started her on tizanidine as a muscle relaxant for her cervical muscle spasms. During the admission, I also treated her with head and neck OMT, and she responded very well to the treatment. She wished to continue seeing me for OMT as an outpatient. At the time of discharge, patient had resolved headaches. She still had some cervical neck pain which was musculoskeletal in nature, but it was much improved. She was agreeable to being discharged home with follow up. DISCHARGE MEDICATIONS: Please see below. ALLERGIES: Please see below. PHYSICAL EXAMINATION ON DISCHARGE: VITAL SIGNS: Please see below. GENERAL: NAD, calm and cooperative, A&Ox3 HEENT: atraumatic, normocephalic NECK: tender to palpation of the paraspinal muscles, TART changes CARDIOVASCULAR EXAMINATION: RRR, no murmurs RESPIRATORY EXAMINATION: Clear b/l, no wheezing ABDOMINAL EXAMINATION: soft, nontender, nondistended, normoactive bowel sounds EXTREMITIES: no edema SKIN: warm, dry NEUROLOGICAL EXAMINATION: CN II-XII grossly intact, normal sensation throughout LABORATORY DATA: Please see below. VTE Prophylaxis ordered?: yes DISCHARGE CONDITION: stable. DISPOSITION: discharge home ACTIVITY: as tolerated DIET: as tolerated DISCHARGE PLAN AND INSTRUCTIONS: 1. f/u with PCP in 3-7 days 2. f/u with Neurology in 2-[address] Abreu at [facility] clinic for OMT TIME SPENT ON DISCHARGE: Greater than 30 minutes. Vital Signs/I&Os Vital Signs Date Time Temp Pulse Resp B/P Pulse Ox O2 Delivery O2 Flow Rate FiO2 12/06/16 04:00 97.4 65 16 137/63 97 Nasal Cannula 2.0 I&O- Last 24 Hours up to 6 AM 12/06/16 06:00 Intake Total 490 ml Output Total 525 ml Balance -35 ml Laboratory Data Labs 24H Laboratory Tests 2 12/06/16 04:08: Blood Urea Nitrogen 17, Creatinine 0.78, Sodium Level 143, Potassium Level 3.6, Chloride Level 106, Carbon Dioxide Level 29, Calcium Level 8.7L, Aspartate Amino Transf (AST/SGOT) 16, Alanine Aminotransferase (ALT/SGPT) 23, Alkaline Phosphatase 83, Total Bilirubin 0.7, Total Protein 7.4, Albumin 3.8, Albumin/ Globulin Ratio 1.06, Anion Gap 8, Glomerular Filtration Rate > 60.0, Magnesium Level 2.4 CBC/BMP Laboratory Tests 12/06/16 04:08 Calcium Level 8.7 L, Aspartate Amino Transf (AST/SGOT) 16, Alanine Aminotransferase (ALT/SGPT) 23, Alkaline Phosphatase 83, Total Bilirubin 0.7, Total Protein 7.4, Albumin 3.8, Red Blood Count 4.59, Mean Corpuscular Volume 88.9, Mean Corpuscular Hemoglobin 29.3, Mean Corpuscular Hemoglobin Concent 32.9 , Red Cell Distribution Width 13.9 Microbiology Microbiology 12/04/16 MRSA Screen, Received Pending Medications Scheduled Amlodipine Besylate (Amlodipine Besylate) 10 Mg Tab 10 MG PO DAILY Aspirin (Aspirin) 325 Mg Tab 325 MG PO DAILY Levothyroxine Sodium (Levoxyl) 88 Mcg Tab 88 MCG PO DAILY Lisinopril (Lisinopril) 10 Mg Tab 10 MG PO BID Omeprazole (Omeprazole) 40 Mg Cap 40 MG PO DAILY Simvastatin - High Dose (Simvastatin) 80 Mg Tab 80 MG PO DAILY Scheduled PRN Acetaminophen (Tylenol Extra Strength) 500 Mg Tab 1,000 MG PO Q6H PRN PRN PAIN Ranitidine HCl (Ranitidine HCl) 150 Mg Tab 1 TAB PO DAILY PRN PRN HEARTBURN Tizanidine Hydrochloride (Zanaflex) 4 Mg Tab 1 MG PO Q8HP PRN PRN PAIN Trazodone HCl (Trazodone HCl) 50 Mg Tab 25 MG PO QHS PRN PRN SLEEP Allergies Coded Allergies: No Known Allergies (Unverified , 12/04/16) MARLEEN ABREU DO Dec 06, 2016 08:00
[2016-12-13] MEDS ORDERED: ZANA2CAP PO (19:12)
== END 2016-12-08 14:50 | disposition home or self-care (01) | DRG 305 ==
LOC: M ED 11:44 → M ICU 14:38 → M ED INP 14:39 → M ICU 19:45 → M PCU 12-07 08:01
PROVIDERS: ADMIT Internal Medicine; ATTEND Internal Medicine
DX: I16.1 Hypertensive emergency (principal); E03.9 Hypothyroidism, unspecified; K21.9 Gastro-esophageal reflux disease without esophagitis; I10 Essential (primary) hypertension; E78.00 Pure hypercholesterolemia, unspecified; M50.30 Other cervical disc degeneration, unspecified cervical region; M62.830 Muscle spasm of back; G44.209 Tension-type headache, unspecified, not intractable; Z79.899 Other long term (current) drug therapy; Z79.82 Long term (current) use of aspirin

== ENCOUNTER → 2017-01-24 | Outpatient (CLI) | payer MEDICARE ==
[~2017-01-24] MED LIST: AMLO10TA2 PO; ASPI325T PO; CYCL5TA PO; LEVO88TA24 PO; LISI10TA4 PO; OMEP40CA2 PO; RANI150T PO; SIMV80TA PO; TRAZ50TA4 PO; TYLE500T78 PO; ZANA2CAP PO; ZANA4TAB PO
--- NOTE | 2017-01-24 12:50 | REPMRS ---
Patient History The patient states she has not had a clinical breast exam in over a year. Patient is postmenopausal. Family history of breast cancer in maternal aunt at age 50 or over. Digital Woman Screen Mammo: January 24, 2017 - Exam #: [id number] Bilateral CC and MLO view(s) were taken. Technologist: Khloe Anna, Technologist Prior study comparison: December 25, 2015, digital woman screen mammo performed at [facility]. November 20, 2014, digital woman screen mammo performed at [facility]. November 19, 2013, digital woman screen mammo performed at [facility]. FINDINGS: The breast tissue is almost entirely fat. There has been no change in the appearance of the mammogram from the prior studies. There is no interval development of dominant mass, architectural distortion, or clustered microcalcification typical of malignancy. ASSESSMENT: BI-RADS/ACR category 1 mammogram. Negative. Recommendation Routine screening mammogram of both breasts in 1 year (for women over age 40). This mammogram was interpreted with the aid of an FDA-approved computer-aided dectection system. Electronically Signed By: Jonathan Patel MD 01/24/17 [id number]
== END ==
LOC: M WHC 07:57
PROVIDERS: ATTEND Family Medicine
DX: Z12.31 Encounter for screening mammogram for malignant neoplasm of breast (principal); E65 Localized adiposity; Z78.0 Asymptomatic menopausal state

== ENCOUNTER 2017-11-25 05:07 | Emergency (ER) | payer MEDICARE ==
[2017-11-25 05:41] LABS: BASO # 0.1 10^3/uL (0.0-0.2); BASO % 0.6 % (0.0-1.0); EOS # 0.2 10^3/uL (0.0-0.50); EOS % 1.7 % (0.0-3.0); HEMATOCRIT 44.7 % (36.0-47.0); HEMOGLOBIN 14.6 g/dl (12.0-16.0); IMMATURE GRANULOCYTE # 0.1 10^3/uL (0-0); IMMATURE GRANULOCYTE % 0.6 % (0-0); LYMPH # 2.1 10^3/uL (1.5-4.5); LYMPH % 16.4 % (24.0-44.0); MEAN CORPUSCULAR HGB CONC 32.7 g/dl (32.0-36.5); MEAN CORPUSCULAR VOLUME 88.7 fl (80.0-96.0); MONO # 1.1 10^3/uL (0.0-0.8); MONO % 8.6 % (0.0-5.0); NEUTROPHILS # 9.2 10^3/uL (1.8-7.7); NEUTROPHILS % 72.1 % (36.0-66.0); PLATELET COUNT, AUTOMATED 276 10^3/uL (150-450); RED BLOOD COUNT 5.04 10^6/uL (4.00-5.40); RED CELL DISTRIBUTION WIDTH 13.4 % (11.5-14.5); WHITE BLOOD COUNT 12.7 10^3/uL (4.0-10.0)
[2017-11-25 06:08] LABS: ALBUMIN 4.2 GM/DL (3.2-5.2); ALBUMIN/GLOBULIN RATIO 0.98 (1.00-1.93); ALKALINE PHOSPHATASE 107 U/L (45-117); ALT/SGPT 32 U/L (12-78); ANION GAP 8 MEQ/L (8-16); AST/SGOT 23 U/L (7-37); BILIRUBIN,DIRECT < 0.1 MG/DL (0.0-0.2); BILIRUBIN,TOTAL 0.5 MG/DL (0.2-1.0); BLOOD UREA NITROGEN 14 MG/DL (7-18); CALCIUM LEVEL 9.3 MG/DL (8.8-10.2); CARBON DIOXIDE LEVEL 26 MEQ/L (21-32); CHLORIDE LEVEL 105 MEQ/L (98-107); CPK CREATINE PHOSPHOKINASE 56 U/L (26-192); CREATININE FOR GFR 1.06 MG/DL (0.55-1.30); GLOMERULAR FILTRATION RATE 53.9 (>39); GLUCOSE, FASTING 144 MG/DL (70-100); LIPASE 144 U/L (73-393); POTASSIUM SERUM 3.7 MEQ/L (3.5-5.1); SODIUM LEVEL 139 MEQ/L (136-145); TOTAL PROTEIN 8.5 GM/DL (6.4-8.2); TROPONIN I < 0.02 NG/ML (< 0.10)
[2017-11-25 06:09] LABS: MB/CK RELATIVE INDEX 1.78 (< OR =4)
[2017-11-25] MEDS: MORPHINE 4 MG/ML 1ML SYRINGE IV (06:15)
[2017-11-25] MEDS: ONDANSETRON 4MG/2ML VIAL (J2405) IV (06:24)
[2017-11-25 06:55] LABS: LACTIC ACID SEPSIS PROTOCOL 1.5 MMOL/L (0.4-2.0)
[2017-11-25] MEDS: GASTROGRAFIN SOLUTION 30ML PO (07:00)
[2017-11-25] MEDS ORDERED: ISOVUE-370 76% 100ML VIAL (Q9967) As Ordered (07:33)
[2017-11-25] MEDS: NS 1,000 ML IV (07:58)
[2017-11-25] MEDS: ACETAMINOPHEN TAB 650MG DOSE (2X325MG) PO (10:03)
== END 2017-11-25 10:08 | disposition home or self-care (01) ==
LOC: M ED 05:07
DX: R10.9 Unspecified abdominal pain (principal); I10 Essential (primary) hypertension; K21.9 Gastro-esophageal reflux disease without esophagitis; K76.0 Fatty (change of) liver, not elsewhere classified; K57.32 Diverticulitis of large intestine without perforation or abscess without bleeding; Z79.82 Long term (current) use of aspirin; Z79.899 Other long term (current) drug therapy; Z88.6 Allergy status to analgesic agent; Z88.5 Allergy status to narcotic agent; Z88.8 Allergy status to other drugs, medicaments and biological substances
CPT/HCPCS: Q9963

== ENCOUNTER 2017-11-27 09:57 | Inpatient (IN) | payer MEDICARE ==
[2017-11-27] MEDS: NS 500 ML IV (11:00)
[2017-11-27 11:04] LABS: BASO # 0.1 10^3/uL (0.0-0.2); BASO % 0.4 % (0.0-1.0); EOS % 0.2 % (0.0-3.0); HEMOGLOBIN 13.8 g/dl (12.0-16.0); IMMATURE GRANULOCYTE # 0.1 10^3/uL (0-0); IMMATURE GRANULOCYTE % 0.8 % (0-0); LYMPH # 0.9 10^3/uL (1.5-4.5); LYMPH % 7.2 % (24.0-44.0); MEAN CORPUSCULAR HEMOGLOBIN 29.1 pg (27.0-33.0); MEAN CORPUSCULAR HGB CONC 32.9 g/dl (32.0-36.5); MEAN CORPUSCULAR VOLUME 88.4 fl (80.0-96.0); MONO # 0.8 10^3/uL (0.0-0.8); MONO % 6.5 % (0.0-5.0); NEUTROPHILS # 10.3 10^3/uL (1.8-7.7); NEUTROPHILS % 84.9 % (36.0-66.0); PLATELET COUNT, AUTOMATED 261 10^3/uL (150-450); RED BLOOD COUNT 4.75 10^6/uL (4.00-5.40); RED CELL DISTRIBUTION WIDTH 13.2 % (11.5-14.5); WHITE BLOOD COUNT 12.2 10^3/uL (4.0-10.0)
[2017-11-27 11:07] LABS: INR 0.94; PROTHROMBIN TIME 12.6 SECONDS (12.4-14.5)
[2017-11-27 11:18] LABS: ALBUMIN/GLOBULIN RATIO 0.91 (1.00-1.93); ALKALINE PHOSPHATASE 108 U/L (45-117); ALT/SGPT 28 U/L (12-78); ANION GAP 9 MEQ/L (8-16); AST/SGOT 15 U/L (7-37); BILIRUBIN,DIRECT < 0.1 MG/DL (0.0-0.2); BILIRUBIN,TOTAL 0.4 MG/DL (0.2-1.0); BLOOD UREA NITROGEN 13 MG/DL (7-18); CALCIUM LEVEL 9.2 MG/DL (8.8-10.2); CARBON DIOXIDE LEVEL 23 MEQ/L (21-32); CHLORIDE LEVEL 106 MEQ/L (98-107); CPK CREATINE PHOSPHOKINASE 62 U/L (26-192); CREATININE FOR GFR 1.06 MG/DL (0.55-1.30); GLOMERULAR FILTRATION RATE 53.9 (>39); GLUCOSE, FASTING 132 MG/DL (70-100); LIPASE 133 U/L (73-393); MB/CK RELATIVE INDEX 1.61 (< OR =4); POTASSIUM SERUM 3.6 MEQ/L (3.5-5.1); SODIUM LEVEL 138 MEQ/L (136-145); TOTAL PROTEIN 8.4 GM/DL (6.4-8.2); TROPONIN I < 0.02 NG/ML (< 0.10)
[2017-11-27] MEDS: ONDANSETRON 4MG/2ML VIAL (J2405) IV (13:03)
[2017-11-27] MEDS: fentaNYL 100 MCG/2 ML INJECTION (J3010) IV (13:04)
[2017-11-27] MEDS ORDERED: ISOVUE-370 76% 100ML VIAL (Q9967) As Ordered (13:24)
[2017-11-27 14:16] LABS: LACTIC ACID SEPSIS PROTOCOL 1.3 MMOL/L (0.4-2.0)
[2017-11-27] MEDS ORDERED: HYDROmorphone HCL 1 MG/ML SYRINGE (J1170) IV (15:00)
[2017-11-27] MEDS: PANTOPRAZOLE 40MG INJ (PROTONIX) (C9113) IV (16:39)
[2017-11-27] MEDS: NS 1,000 ML IV (16:40)
[2017-11-27] MEDS: ATORVASTATIN 20 MG TAB PO (16:40)
[2017-11-27 17:03] LABS: KETONE, URINE AUTO RFX TRACE mg/dL (NEGATIVE); LEUKOCYTE ESTERASE UR AUTO RFX NEGATIVE (NEGATIVE); NITRITE, URINE AUTO RFX NEGATIVE (NEGATIVE); RBC, URINE AUTO RFX 0 /HPF (0-3); SPECIFIC GRAVITY UR AUTO RFX 1.034 (1.002-1.035); SQUAM EPITHELIAL CELL UR AURFX 0 /HPF (0-6); WBC, URINE AUTO RFX 2 /HPF (0-3)
[2017-11-27] MEDS: HYDROmorphone HCL 1 MG/ML SYRINGE (J1170) IV (20:50)
[2017-11-27] MEDS: amLODIPine 5 MG TAB PO (21:32)
[2017-11-28] MEDS: HYDROmorphone HCL 1 MG/ML SYRINGE (J1170) IV (01:46)
[2017-11-28] MEDS: ONDANSETRON 4MG/2ML VIAL (J2405) IV ×2 (02:58→08:21)
[2017-11-28 03:31] LABS: BASO # 0.1 10^3/uL (0.0-0.2); BASO % 0.7 % (0.0-1.0); EOS # 0.2 10^3/uL (0.0-0.50); EOS % 1.9 % (0.0-3.0); HEMATOCRIT 38.2 % (36.0-47.0); HEMOGLOBIN 12.7 g/dl (12.0-16.0); IMMATURE GRANULOCYTE # 0.1 10^3/uL (0-0); IMMATURE GRANULOCYTE % 0.5 % (0-0); LYMPH # 2.7 10^3/uL (1.5-4.5); MEAN CORPUSCULAR HGB CONC 33.2 g/dl (32.0-36.5); MEAN CORPUSCULAR VOLUME 87.2 fl (80.0-96.0); MONO # 0.9 10^3/uL (0.0-0.8); MONO % 8.6 % (0.0-5.0); NEUTROPHILS # 6.1 10^3/uL (1.8-7.7); NEUTROPHILS % 61.3 % (36.0-66.0); PLATELET COUNT, AUTOMATED 268 10^3/uL (150-450); RED BLOOD COUNT 4.38 10^6/uL (4.00-5.40); RED CELL DISTRIBUTION WIDTH 13.5 % (11.5-14.5)
[2017-11-28 03:52] LABS: ALBUMIN 3.6 GM/DL (3.2-5.2); ALBUMIN/GLOBULIN RATIO 0.97 (1.00-1.93); ALKALINE PHOSPHATASE 93 U/L (45-117); ALT/SGPT 22 U/L (12-78); ANION GAP 11 MEQ/L (8-16); AST/SGOT 15 U/L (7-37); BILIRUBIN,TOTAL 0.6 MG/DL (0.2-1.0); BLOOD UREA NITROGEN 10 MG/DL (7-18); CALCIUM LEVEL 8.6 MG/DL (8.8-10.2); CARBON DIOXIDE LEVEL 20 MEQ/L (21-32); CHLORIDE LEVEL 110 MEQ/L (98-107); CREATININE FOR GFR 0.94 MG/DL (0.55-1.30); GLOMERULAR FILTRATION RATE > 60.0 (>39); GLUCOSE, FASTING 174 MG/DL (70-100); POTASSIUM SERUM 3.4 MEQ/L (3.5-5.1); SODIUM LEVEL 141 MEQ/L (136-145); TOTAL PROTEIN 7.3 GM/DL (6.4-8.2)
[2017-11-28] MEDS: NS 1,000 ML IV ×2 (03:52→17:20)
[2017-11-28] MEDS: METOCLOPRAMIDE INJ 10MG/2ML VIAL (J2765) IV (06:02)
[2017-11-28] MEDS: LEVOTHYROXINE 88MCG TABLET (0.088 MG) PO (06:10)
[2017-11-28] MEDS: PANTOPRAZOLE 40MG INJ (PROTONIX) (C9113) IV (08:21)
[2017-11-28] MEDS ORDERED: SIMVASTATIN 40 MG TAB PO (09:00)
[2017-11-28] MEDS: amLODIPine 5 MG TAB PO ×2 (09:15→20:28)
[2017-11-28] MEDS: ATORVASTATIN 20 MG TAB PO (09:16)
[2017-11-28] MEDS: POTASSIUM CHLORIDE 10 MEQ SR TABLET PO (09:16)
[2017-11-28] MEDS: ACETAMINOPHEN TAB 650MG DOSE (2X325MG) PO (12:36)
[2017-11-28] MEDS ORDERED: CIPROFLOXACIN 400 MG in APPROPRIATE DILUENT 1 EA IV (13:30)
[2017-11-28] MEDS ORDERED: metroNIDAZOLE 500 MG in APPROPRIATE DILUENT 1 EA IV (13:30)
[2017-11-28] MEDS ORDERED: traZODone 25MG PER 1/2 TABLET PO (13:30)
[2017-11-29 05:22] LABS: BASO # 0.1 10^3/uL (0.0-0.2); BASO % 0.7 % (0.0-1.0); EOS # 0.1 10^3/uL (0.0-0.50); EOS % 1.4 % (0.0-3.0); HEMATOCRIT 37.6 % (36.0-47.0); HEMOGLOBIN 12.1 g/dl (12.0-16.0); IMMATURE GRANULOCYTE # 0.1 10^3/uL (0-0); IMMATURE GRANULOCYTE % 0.5 % (0-0); LYMPH # 2.2 10^3/uL (1.5-4.5); LYMPH % 24.3 % (24.0-44.0); MEAN CORPUSCULAR HEMOGLOBIN 28.5 pg (27.0-33.0); MEAN CORPUSCULAR HGB CONC 32.2 g/dl (32.0-36.5); MEAN CORPUSCULAR VOLUME 88.7 fl (80.0-96.0); MONO # 0.7 10^3/uL (0.0-0.8); NEUTROPHILS % 65.1 % (36.0-66.0); PLATELET COUNT, AUTOMATED 248 10^3/uL (150-450); RED BLOOD COUNT 4.24 10^6/uL (4.00-5.40); RED CELL DISTRIBUTION WIDTH 13.4 % (11.5-14.5); WHITE BLOOD COUNT 9.2 10^3/uL (4.0-10.0)
[2017-11-29] MEDS: NS 1,000 ML IV (05:43)
[2017-11-29] MEDS: LEVOTHYROXINE 88MCG TABLET (0.088 MG) PO (05:43)
[2017-11-29 05:52] LABS: ALBUMIN 3.3 GM/DL (3.2-5.2); ALBUMIN/GLOBULIN RATIO 0.89 (1.00-1.93); ALKALINE PHOSPHATASE 88 U/L (45-117); ALT/SGPT 21 U/L (12-78); ANION GAP 8 MEQ/L (8-16); AST/SGOT 20 U/L (7-37); BILIRUBIN,TOTAL 0.5 MG/DL (0.2-1.0); BLOOD UREA NITROGEN 8 MG/DL (7-18); CALCIUM LEVEL 8.6 MG/DL (8.8-10.2); CARBON DIOXIDE LEVEL 24 MEQ/L (21-32); CHLORIDE LEVEL 109 MEQ/L (98-107); CREATININE FOR GFR 0.83 MG/DL (0.55-1.30); GLOMERULAR FILTRATION RATE > 60.0 (>39); GLUCOSE, FASTING 93 MG/DL (70-100); MAGNESIUM LEVEL 2.2 MG/DL (1.8-2.4); POTASSIUM SERUM 3.7 MEQ/L (3.5-5.1); SODIUM LEVEL 141 MEQ/L (136-145)
[2017-11-29] MEDS: PANTOPRAZOLE 40MG INJ (PROTONIX) (C9113) IV (09:17)
[2017-11-29] MEDS: amLODIPine 5 MG TAB PO (09:18)
[2017-11-29] MEDS: ATORVASTATIN 20 MG TAB PO (09:18)
== END 2017-11-29 13:45 | disposition home or self-care (01) | DRG 395 ==
LOC: M ED 09:57 → M ED INP 15:13 → M PCU 20:33
DX: K55.041 Focal (segmental) acute infarction of large intestine (principal); Z66 Do not resuscitate; I10 Essential (primary) hypertension; K21.9 Gastro-esophageal reflux disease without esophagitis; E78.5 Hyperlipidemia, unspecified; E03.9 Hypothyroidism, unspecified; Z79.899 Other long term (current) drug therapy; Z88.6 Allergy status to analgesic agent; Z88.5 Allergy status to narcotic agent; Z88.8 Allergy status to other drugs, medicaments and biological substances; Z90.710 Acquired absence of both cervix and uterus

== ENCOUNTER → 2018-02-13 | Outpatient (CLI) | payer MEDICARE | LOC: M WHC 09:09 | DX: Z12.31 Encounter for screening mammogram for malignant neoplasm of breast (principal) | CPT/HCPCS: 77067 ==

== ENCOUNTER → 2018-04-02 | Outpatient (CLI) | payer MEDICARE ==
[2018-04-02 09:41] LABS: BLOOD UREA NITROGEN 11 MG/DL (7-18)
[2018-04-02 09:41] LABS: CREATININE FOR GFR 0.87 MG/DL (0.55-1.30); GLOMERULAR FILTRATION RATE > 60.0 (>39)
== END ==
LOC: M LAB 08:24
DX: K52.3 Indeterminate colitis (principal)
CPT/HCPCS: 82565

== ENCOUNTER → 2018-04-06 | Outpatient (CLI) | payer MEDICARE ==
[~2018-04-06] MED LIST changes: -AMLO10TA2 PO; -ASPI325T PO; -CYCL5TA PO; +GASTROGRAFIN SOLUTION 30ML (Q9963) As Ordered; +ISOVUE-370 76% 100ML VIAL (Q9967) As Ordered; -LEVO88TA24 PO; -LISI10TA4 PO; -OMEP40CA2 PO; -RANI150T PO; -SIMV80TA PO; -TRAZ50TA4 PO; -TYLE500T78 PO; -ZANA2CAP PO; -ZANA4TAB PO
== END ==
LOC: M RAD 08:47
DX: K52.3 Indeterminate colitis (principal)
CPT/HCPCS: Q9963

== ENCOUNTER → 2019-03-07 | Outpatient (CLI) | payer MEDICARE ==
[~2019-03-07] MED LIST changes: +AMLO10TA5 PO; +ASPI-1 PO; +CYCL5TAB PO; -GASTROGRAFIN SOLUTION 30ML (Q9963) As Ordered; -ISOVUE-370 76% 100ML VIAL (Q9967) As Ordered; +LEVO88TA24 PO; +LISI10TA4 PO; +OMEP40CA2 PO; +RANI150T PO; +REFR0.5D8 OU; +SIMV80TA13 PO; +TIZA2CAP PO; +TRAZ-160 PO; +TYLE500T78 PO; +ZANA2CAP PO; +ZANA4TAB PO
--- NOTE | 2019-03-07 10:06 | REPMRS ---
Patient History The patient states she has not had a clinical breast exam in over a year. Family history of breast cancer at age 50 or over in maternal aunt. Digital Woman Screen Mammo: March 07, 2019 - Exam #: [id number] Bilateral CC and MLO view(s) were taken. Technologist: Khloe Anna, Technologist Prior study comparison: February 13, 2018, digital woman screen mammo performed at [facility]. January 24, 2017, digital woman screen mammo performed at [facility]. December 25, 2015, digital woman screen mammo performed at [facility]. FINDINGS: There are scattered fibroglandular densities. There has been no change in the appearance of the mammogram from the prior studies. There is a mild amount of scattered fibroglandular density which is fairly symmetric. There is no interval development of dominant mass, architectural distortion, or clustered microcalcification suggestive of malignancy. 3-D tomosynthesis shows no additional findings. Assessment: BI-RADS/ACR category 1 mammogram. Negative Mammogram. Recommendation Routine screening mammogram of both breasts in 1 year (for women over age 40). This patient's Lifetime Breast Cancer RIsk is estimated at 2.8 %. This mammogram was interpreted with the aid of an FDA-approved computer-aided dectection system. Electronically Signed By: Jonathan Patel MD 03/07/19 [id number]
== END ==
LOC: M WHC 08:47
PROVIDERS: ATTEND Family Medicine
DX: Z12.31 Encounter for screening mammogram for malignant neoplasm of breast (principal)

== ENCOUNTER → 2020-06-09 | Outpatient (CLI) | payer MEDICARE ==
[~2020-06-09] MED LIST changes: -AMLO10TA5 PO; +AMLO1TAB25 PO; -OMEP40CA2 PO; +OMEP40CA97 PO; -TRAZ-160 PO; +TRAZ-252 PO
--- NOTE | 2020-06-24 12:05 | REPMRS ---
Patient History The patient states she has not had a clinical breast exam in over a year. Patient is postmenopausal. Family history of breast cancer at age 50 or over in maternal aunt. Digital Woman Screen Mammo: June 09, 2020 - Exam #: [id number] Bilateral CC and MLO view(s) were taken. Technologist: Cassandra Chaudhary, Technologist Prior study comparison: March 07, 2019, bilateral digital woman screen mammo performed at [facility]. February 13, 2018, digital woman screen mammo performed at [facility]. January 24, 2017, digital woman screen mammo performed at [facility]. FINDINGS: There are scattered fibroglandular densities. The Volpara volumetric breast density category is:B. There has been no change in the appearance of the mammogram from the prior studies. There is a mild amount of scattered fibroglandular density which is fairly symmetric. There is no interval development of dominant mass, architectural distortion, or grouped microcalcification suggestive of malignancy. 3-D tomosynthesis shows no additional findings. Assessment: BI-RADS/ACR category 1 mammogram. Negative Mammogram. Recommendation Routine screening mammogram of both breasts in 1 year (for women over age 40). This patient's Lifetime Breast Cancer Risk is estimated at 2.6 %. This mammogram was interpreted with the aid of an FDA-approved computer-aided dectection system. Electronically Signed By: Jonathan Patel MD 06/24/20 0790
== END ==
LOC: M WHC 16:59
PROVIDERS: ATTEND Family Medicine
DX: Z12.31 Encounter for screening mammogram for malignant neoplasm of breast (principal)

== ENCOUNTER 2020-11-17 22:54 | Emergency (ER) | payer MEDICARE ==
[~2020-11-17] VITALS: Ht 165.1 cm; Wt 78.2 kg
--- OUTSIDE RECORDS SUMMARY | 2020-11-17 23:01 | CCD ---
Continuity of Care Document (CCD) Created on: 10/05/2020 HernándezLeila barakat External Reference #: [id number] : 1945 Sex: Female Author Author Lab Schedule, Leila Pfeiffer Organization Unknown Address [address] [place] [address] Phone Unavailable Care Team Providers Care Baker Biscuit Name Role Phone Noé Michaels MD AUTM [phone] Leo Herrera MD AUTM [phone] Armani Melgar OD AUTM [phone] Phillip Quinonez DO AUTM [phone] Ubaldo King MD AUTM [phone] Problems Active Problems Provider Date Hypothyroidism Noé Michaels M.D. Onset: 07/10/2015 Hyperlipidemia Noé Michaels M.D. Onset: 07/10/2015 Gastroesophageal reflux disease Noé Michaels M.D. Onset: 07/10/2015 Benign paroxysmal positional vertigo nystagmus Onset: 01/05/2011 Hypertensive disorder Onset: Social History Type Date Description Comments Sex Unknown ETOH Use Rarely consumes alcohol 1 drink monthly Tobacco Use Start: Unknown Patient has never smoked Allergies, Adverse Reactions, Alerts Active Allergies Reaction Severity Comments Date Codeine N/C, cold sweats 12/04/2017 Hydromorphone 12/04/2017 Morphine 12/04/2017 Propoxyphene 12/04/2017 Inactive Allergies NKDA 07/10/2015 Medications Active Medications SIG Qnty Indications Ordering Provide r Date Trazodone HCL 50mg Tablets take one tablet by mouth at bedtime 30tabs Noé Michaels M.D. 020 Synthroid 75mcg Tablets by mouth every other day (alternate with 88 mcg) 45tabs Noé Michaels M.D. 03/31/2020 Amlodipine Besylate 10mg Tablets 1 by mouth every day 90kathryn Michaels M.D. 12/13/2016 Lisinopril 10mg Tablets 1 by mouth every day 90kathryn Michaels M.D. 02/15/[address] 1 by mouth every day 90caps Noé Michaels M.D. 07/10/2015 Simvastatin 80mg Tablets 1 by mouth at bedtime 90tayamila Michaels M.D. 07/10/2015 Levothyroxine Sodium 88mcg Tablets 1 by mouth every day 90kathryn Michaels M.D. 07/10/2015 Aspirin 325mg Tablets 1 by mouth every day Noé Michaels M.D. 07/10/2015 Administration Of Flu Vaccine Inj ection Unknown Medications Administered in Office Medication SIG Qnty Indications Ordering Provider Date Administration Of Flu Vaccine Inj gricelda Michaels M.D. 07/09/2020 Administration Of Flu Vaccine Inj janieion Noé Michaels M.D. 08/08/2019 Administration Of Flu Vaccine Inj janieion Noé Michaels M.D. 07/26/2018 Administration Of Flu Vaccine Inj janieion Noé Michaels M.D. 08/03/2017 Administration Of Flu Vaccine Inj janieion Noé Michaels M.D. 08/03/2016 Administration Of Flu Vaccine Inj janieion Noé Michaels M.D. 08/06/2015 Immunizations CPT Code Status Date Vaccine Lot # [id number] Given 07/09/2020 Influenza Vaccin e Quadrivalent Preser/Antibiotic Free Im Use [id number] 09701 Given 08/08/2019 Influenza Vaccin e Quadrivalent Preser/Antibiotic Free Im Use [id number] 07815 Given 07/26/2018 Influenza Virus Vaccine, Quadrivalent (Cciiv4), Derived From 1 Given 08/03/2017 Influenza Vaccin e Quadrivalent Preser/Antibiotic Free Im Use 489653 Q2037 Given 08/03/2016 Fluvirin Virus Vaccine 25618 01 Q2037 Given 08/06/2015 Fluvirin Virus Vaccine 37901 01 58828 Given 07/22/2014 Influenza Virus Vaccine 04722 Given 08/13/2013 Influenza Virus Vaccine 71811 Given 07/11/2012 Influenza Virus Vaccine 66776 Given 07/23/2011 Influenza Virus Vaccine 28675 Given 07/12/2010 Influenza Virus Vaccine 28220 Given 2009 Pneumovax 23 42872 Given 07/21/2009 Influenza Virus Vaccine 98003 Refused 04/26/2018 Zoster Vaccine 93725 Refused 11/14/2013 Zoster Vaccine Vital Signs Date Vital Result Comment 09/30/2020 9:00am BP Systolic 130 mmHg BP Diastolic 80 mmHg Heart Rate 71 /min Height 64.5 inches 5'4.50" Weight 176.25 lb O2 % BldC Oximetry 96 % RM Air BMI (Body Mass Index) 29.8 kg/m2 03/31/2020 8:48am BP Systolic 120 mmHg BP Diastolic 72 mmHg Heart Rate 68 /min Weight 176.00 lb Results Test Acquired Date Facility Test Result H/L Range Note Comprehensive Chem Profile 09/29/2020 [facility] Manager Dairy: [place] [address] [phone] Glucose 102 mg/dL High 74 - 99 1 BUN 18 mg/dL 7 - 18 Creatinine 0.9 mg/dL 0.6 - 1.3 Sodium 143 mEq/L 136 - 145 Potassium 4.5 mEq/L 3.5 - 5.1 Chloride 104 mEq/L 98 - 107 Carbon Dioxide 27 mEq/L 21 - 32 Calcium 9.2 mg/dL 8.5 - 10.1 Alk. Phosphatase 87 mg/dL 46 - 116 Total Bilirubin 0.5 mg/dL 0.2 - 1.0 Ast (Sgot) 17 U/L 15 - 37 Alt (SGPT) 28 U/L 12 - 78 Albumin 4.1 g/dL 3.4 - 5.0 Total Protein 7.4 g/dL 6.4 - 8.2 A/G Ratio 1.24 CALC 1.00 - 1.90 GFR >= 60 mL/min >60 GFR >= 60 mL/min >60 2 Lipid Profile 09/29/2020 [facility] Manager Dairy: [place] [address] [phone] Cholesterol 177 mg/dL 131 - 200 Triglycerides 126 mg/dL 30 - 150 HDL Cholesterol 63 mg/dL High 35 - 60 LDL (Calculated) 89 CALC 50 - 159 Laboratory test finding 09/29/2020 [facility] ivonne sloan Manager Dairy: Dr Wes [address] [place], [place] [id number] [phone] Thyroid Stimulating Hormone 0.58 uIU/mL 0.3 6 - 3.74 T4 Free 1.10 ng/dL 0.76 - 1.46 Laboratory test finding 05/26/2020 [facility] ivonne sloan Manager Dairy: Dr Wes [place] [id number] [phone] Thyroid Stimulating Hormone 0.29 uIU/mL Low 0.3 6 - 3.74 T4 Free 1.10 ng/dL 0.76 - 1.46 1 100-125 mg/dL PRE-DIABET ES/FASTING >126 mg/dL DIABETES/FASTING 2 CHRONIC KIDNEY DISEASE STAGI NG PER NKF STAGE I & II GFR >= 60 NORMAL TO MILDLY DECREASED STAGE III GFR 30-59 MODERATELY DECREASED STAGE IV GFR 15-29 SEVERELY DECREASED STAGE V GFR <15 VERY LITTLE GFR LEFT ESRD GFR <15 ON FRENCH TUTOR Procedures Date Code Description Status 06/09/2020 [id number] Mammogram Completed 03/07/2019 [id number] Mammogram Completed 02/13/2018 [id number] Mammogram Completed 01/24/2017 [id number] Mammogram Completed 12/25/2015 [id number] Mammogram Completed Medical Devices Description No Information Available Encounters Description No Information Available Assessments Date Code Description Provider 09/30/2020 E78.5 Hyperlipidemia, unspecified Tiffanie Michaels M.D. 09/30/2020 E03.9 Hypothyroidism, unspecified Tiffanie Michaels M.D. 09/30/2020 I10 Essential (primary) hypertension Noé Michaels M.D. 09/30/2020 K21.9 Gastro-esophageal reflux disease without esophagitis Noé Michaels M.D. 09/30/2020 I71.4 Abdominal aortic aneurysm, witho ut rupture Noé Michaels M.D. 09/30/2020 G47.09 Other insomnia Noé Michaels M.D. 09/30/2020 M25.512 Pain in left shoulder Noé rhodes M.D. 09/29/2020 I10 Essential (primary) hypertension Noé Michaels M.D. 09/29/2020 I10 Essential (primary) hypertension Lab Schedule 09/29/2020 E78.5 Hyperlipidemia, unspecified Tiffanie Michaels M.D. 09/29/2020 E78.5 Hyperlipidemia, unspecified Lab Schedule 09/29/2020 E03.9 Hypothyroidism, unspecified Tiffanie Michaels M.D. 09/29/2020 E03.9 Hypothyroidism, unspecified Lab Schedule 07/09/2020 Z23 Encounter for immunization Noé Michaels M.D. 07/09/2020 Z23 Encounter for immunization Nurse Schedule 05/26/2020 E03.9 Hypothyroidism, unspecified Tiffanie Michaels M.D. 05/26/2020 E03.9 Hypothyroidism, unspecified Lab Schedule Plan of Treatment Future Appointment(s):* 04/05/2021 8:20 am - Lab Schedule at [facility] * 04/06/2021 9:00 am - Noé Michaels M.D. at [facility] 09/30/2020 - Noé Michaels M.D.* E78.5 Hyperlipidemia, unspecified * E03.9 Hypothyroidism, unspecified * I10 Essential (primary) hypertension * K21.9 Gastro-esophageal reflux disease without esophagitis * I71.4 Abdominal aortic aneurysm, without rupture * G47.09 Other insomnia * M25.512 Pain in left shoulder * * Comments:* 1. Hyperlipidemia: Generally doing well with the use of Simvastatin daily, will continue and monitor.2. Hypothyroidism: Patient is doing well with alternate day dosing of both 88 mcg and 75 mcg (Synthroid). Her TSH and free T4 are normal. We will check TSH again at visit. Patient will continue with current regimen and will monitor.3. Hypertension: Well- controlled on present regimen, will continue and monitor. Electrolytes are appropriate. 4. GERD: Requires PPI daily for controlling heartburn. We will monitor.5. Abdominal aortic aneurysm, without rupture: Last ultrasound on 04/13/2020 showed no significant change from prior exam in 2014 (3.3 cm abdominal aortic aneurysm).6. Insomnia: No issues with initiation but 2-3 am wakes and can't go back to sleep. Will trial trazodone and call with follow up.7. Left shoulder pain: Much better with injection from Dr Colon at [facility]. We will monitor.Ongoing cares: Patient is going to call me about how she is doing with the Trazodone. Patient will get a Prevnar shot from the pharmacy. I am going to see her again in 6 months with CMP, lipids and TSH. If she has new problems or issues sooner she will let us know. Functional Status Description No Information Available Mental Status Description No Information Available Referrals Description No Information Available
--- OUTSIDE RECORDS SUMMARY | 2020-11-17 23:01 | CCD | Continuity of Care Document ---
Author Author Leila MIN MD Organization Unknown Address [address] [place] [address], [address] [place] [address] Phone [phone] Care Team Providers Care Tool Salvage Worker Name Role Phone Noé Michaels MD AUTM [phone] Problems Active Problems Provider Date Pure hypercholesterolemia Coleen Min MD Onset: Essential hypertension Coleen Min MD Onset: 12/12 Social History Type Date Description Comments Sex Unknown ETOH Use Rarely consumes alcohol Tobacco Use Start: Unknown Denies Smoking Allergies, Adverse Reactions, Alerts Active Allergies Reaction Severity Comments Date Any Opioids 12/12/2019 Medications Active Medications SIG Qnty Indications Ordering Provide r Date Amlodipine Besylate 10mg Tablets Unknown Lisinopril 10mg Tablets Unknown Omeprazole 40mg Capsules DR Unknown Simvastatin 80mg Tablets Unknown Levothyroxine Sodium 88mcg Tablets 1 by mouth every day Unknown Aspirin [address] 1 by mouth every day Unknown Immunizations Description No Information Available Vital Signs Date Vital Result Comment 09/08/2020 9:06am Body Temperature 97.3 F Height 63.75 inches 5'3.75" Weight 178.38 lb BMI (Body Mass Index) 30.9 kg/m2 12/12/2019 2:04pm Body Temperature 97.1 F Height 64.5 inches 5'4.50" Weight 173.00 lb BMI (Body Mass Index) 29.2 kg/m2 Results Description No Information Available Procedures Date Code Description Status 09/08/2020 44352 X-Ray Shoulder Complete Complete d 09/08/2020 57448 Inject/Drain Joint/Bursa Major C ompleted Medical Devices Description No Information Available Encounters Type Date Location Provider Dx Diagnosis Office Visit 09/08/2020 8:30a Amie Min MD M1 9.011 Primary osteoarthritis, right shoulder Assessments Date Code Description Provider 09/08/2020 M19.011 Primary osteoarthritis, right sh bhakti Min MD Plan of Treatment 09/08/2020 - Coleen Min MD* M19.011 Primary osteoarthritis, right shoulder* Follow up:* 2-3 months rt shoulder cb with dpv Functional Status Description No Information Available Mental Status Description No Information Available Referrals Description No Information Available
--- OUTSIDE RECORDS SUMMARY | 2020-11-17 23:01 | CCD | Continuity of Care Document ---
Author Author Leila MIN MD Organization Unknown Address [address] [place] [address], [address] [place] [address] Phone [phone] Care Team Providers Care Youth Associate Name Role Phone Noé Michaels MD AUTM [phone] Problems Active Problems Provider Date Pure hypercholesterolemia [...] Available Procedures Date Code Description Status 09/08/2020 80371 X-Ray Shoulder Complete Complete d Medical Devices Description No Information Available Encounters Description No Information Available Assessments Date Code Description Provider 09/08/2020 M19.011 Primary osteoarthritis, right sh [facility] Coleen Min MD Plan of Treatment 09/08/2020 - Coleen Min MD* M19.011 Primary osteoarthritis, right shoulder* Follow up:* 2-3 months rt shoulder cb with dpv Functional Status Description No Information Available Mental Status Description No Information Available Referrals Description No Information Available
--- OUTSIDE RECORDS SUMMARY | 2020-11-17 23:01 | CCD ---
Continuity of Care Document (CCD) Created on: 09/30/2020 Leila Hernández External Reference #: [id number] : 1945 Sex: Female Author Author Lab Schedule, Leila Pfeiffer Organization Unknown Address [address] [place] [address] Phone Unavailable Care Team Providers Care Pig Machine Supervisor Name Role Phone Noé Michaels MD AUTM [phone] Leo Herrera MD AUTM [phone] Armani Melgar OD AUTM [phone] Phillip Quinonez DO AUTM [phone] Ubaldo King MD AUTM [phone] Problems Active Problems Provider Date Hypothyroidism Noé [...] SIG Qnty Indications Ordering Provide r Date Synthroid 75mcg Tablets by mouth every other day (alternate with 88 mcg) 45tabs Noé Michaels M.D. 03/31/2020 Amlodipine Besylate 10mg Tablets 1 by mouth every day 90tabs Noé Michaels M.D. 12/13/2016 Lisinopril 10mg Tablets 1 by mouth every day 90tabs Noé F. White, M.D. 02/15/[address] 1 by mouth every day 90caps Noé Michaels M.D. 07/10/2015 Simvastatin 80mg Tablets 1 by mouth at bedtime 90tayamila Michaels M.D. 07/10/2015 Levothyroxine Sodium 88mcg Tablets 1 by mouth every day aubrey Michaels M.D. 07/10/2015 Aspirin 325mg Tablets 1 by mouth every day Noé Michaels M.D. 07/10/2015 Administration Of Flu Vaccine Inj ection Unknown Medications Administered in Office Medication SIG Qnty Indications Ordering Provider Date Administration Of Flu Vaccine Inj gricelda Michaels M.D. 07/09/2020 Administration Of Flu Vaccine Inj gricelda Michaels M.D. 08/08/2019 Administration Of Flu Vaccine Inj janieion Noé Michaels M.D. 07/26/2018 Administration Of Flu Vaccine Inj janieion Noé Michaels M.D. 08/03/2017 Administration Of Flu Vaccine Inj janieion Noé Michaels M.D. 08/03/2016 Administration Of Flu Vaccine Inj janieion Noé Michaels M.D. 08/06/2015 Immunizations CPT Code Status Date Vaccine Lot # 26850 Given 07/09/2020 Influenza Vaccin e Quadrivalent Preser/Antibiotic Free Im Use [id number] 79059 Given 08/08/2019 Influenza Vaccin e Quadrivalent Preser/Antibiotic Free Im Use 553409 73265 Given 07/26/2018 Influenza Virus Vaccine, Quadrivalent (Cciiv4), Derived From 8 Given 08/03/2017 Influenza Vaccin e Quadrivalent Preser/Antibiotic Free Im Use 111100 Q2037 Given 08/03/2016 Fluvirin Virus Vaccine 51095 01 Q2037 Given 08/06/2015 Fluvirin Virus Vaccine 14189 01 82515 Given 07/22/2014 Influenza Virus Vaccine 42371 Given 08/13/2013 Influenza Virus Vaccine 93733 Given 07/11/2012 Influenza Virus Vaccine 60858 Given 07/23/2011 Influenza Virus Vaccine 61270 Given 07/12/2010 Influenza Virus Vaccine 30723 Given 2009 Pneumovax 23 47659 Given 07/21/2009 Influenza Virus Vaccine 12431 Refused 04/26/2018 Zoster Vaccine 89207 Refused 11/14/2013 Zoster Vaccine Vital Signs Date [...] H/L Range Note Comprehensive Chem Profile 09/29/2020 [facility], Acupressurist: [place] [address] [phone] Glucose 102 mg/dL High 74 - 99 [...] 60 mL/min >60 2 Lipid Profile 09/29/2020 [facility] Acupressurist: [place] [address] [phone] Cholesterol 177 mg/dL 131 - 200 Triglycerides 126 mg/dL 30 - 150 HDL Cholesterol 63 mg/dL High 35 - 60 LDL (Calculated) 89 CALC 50 - 159 Laboratory test finding 09/29/2020 [facility] Acupressurist: [place] [address] [phone] Thyroid Stimulating Hormone 0.58 uIU/mL 0.3 6 - 3.74 T4 Free 1.10 ng/dL 0.76 - 1.46 Laboratory test finding 05/26/2020 [facility] Acupressurist: Dr Wes [address] [place], [place] [id number] [phone] Thyroid Stimulating Hormone 0.29 uIU/mL Low 0.3 [...] LITTLE GFR LEFT ESRD GFR <15 ON PEANUT BUTTER MAKER Procedures Date Code Description Status 06/09/2020 [id number] Mammogram Completed 03/07/2019 [id number] Mammogram Completed 02/13/2018 [id number] Mammogram Completed 01/24/2017 [id number] Mammogram Completed 12/25/2015 [id number] Mammogram Completed Medical Devices Description No Information [...] G47.09 Other insomnia Noé Michaels M.D. 09/30/2020 M25.511 Pain in right shoulder Noé Michaels M.D. 07/09/2020 Z23 Encounter for immunization Noé Michaels M.D. 07/09/2020 Z23 Encounter for immunization Nurse Schedule 05/26/2020 E03.9 Hypothyroidism, unspecified Tiffanie Michaels M.D. 05/26/2020 E03.9 Hypothyroidism, unspecified Lab Schedule Plan of Treatment No Information Available Functional Status Description No Information Available Mental Status Description No Information Available Referrals Description No Information Available
--- OUTSIDE RECORDS SUMMARY | 2020-11-17 23:01 | CCD | Continuity of Care Document ---
Author Author Lab Schedule, Leila Pfeiffer Organization Unknown Address [address] [place] [address] Phone Unavailable Care Team Providers Care Reservoir Engineer Name Role Phone Noé Michaels MD AUTM [phone] Leo Herrera MD AUTM [phone] Armani Melgar OD AUTM [phone] Phillip Quinonez DO AUTM [phone] Ubaldo King MD AUTM [phone] Problems Active Problems Provider Date Hypothyroidism Noé [...] CPT Code Status Date Vaccine Lot # 50460 Given 07/09/2020 Influenza Vaccin e Quadrivalent Preser/Antibiotic Free Im Use 237324 62246 Given 08/08/2019 Influenza Vaccin e Quadrivalent Preser/Antibiotic Free Im Use 128946 82621 Given 07/26/2018 Influenza Virus Vaccine, Quadrivalent (Cciiv4), Derived From 4 Given 08/03/2017 Influenza Vaccin e Quadrivalent Preser/Antibiotic Free Im Use 806702 Q2037 Given 08/03/2016 Fluvirin Virus Vaccine 23636 01 Q2037 Given 08/06/2015 Fluvirin Virus Vaccine 85277 01 48391 Given 07/22/2014 Influenza Virus Vaccine 55749 Given 08/13/2013 Influenza Virus Vaccine 64300 Given 07/11/2012 Influenza Virus Vaccine 30203 Given 07/23/2011 Influenza Virus Vaccine 30082 Given 07/12/2010 Influenza Virus Vaccine 96888 Given 2009 Pneumovax 23 03626 Given 07/21/2009 Influenza Virus Vaccine 31766 Refused 04/26/2018 Zoster Vaccine 57865 Refused 11/14/2013 Zoster Vaccine Vital Signs Date [...] H/L Range Note Comprehensive Chem Profile 09/29/2020 [facility], Sales And Service Advisor: [place] [address] [phone] Glucose 102 mg/dL High 74 - 99 [...] 60 mL/min >60 2 Lipid Profile 09/29/2020 [facility] Sales And Service Advisor: [place] [address] [phone] Cholesterol 177 mg/dL 131 - 200 Triglycerides 126 mg/dL 30 - 150 HDL Cholesterol 63 mg/dL High 35 - 60 LDL (Calculated) 89 CALC 50 - 159 Laboratory test finding 09/29/2020 [facility] Sales And Service Advisor: [place] [address] [phone] Thyroid Stimulating Hormone 0.58 uIU/mL 0.3 6 - 3.74 T4 Free 1.10 ng/dL 0.76 - 1.46 Laboratory test finding 05/26/2020 [facility] Sales And Service Advisor: Dr Wes [address] [place], [place] [id number] [phone] Thyroid Stimulating Hormone 0.29 uIU/mL Low 0.3 [...] LITTLE GFR LEFT ESRD GFR <15 ON TOOL OPERATOR Procedures Date Code Description Status 06/09/2020 [id number] Mammogram Completed 03/07/2019 [id number] Mammogram Completed 02/13/2018 [id number] Mammogram Completed 01/24/2017 [id number] Mammogram Completed 12/25/2015 [id number] Mammogram Completed Medical Devices Description No Information [...]
--- OUTSIDE RECORDS SUMMARY | 2020-11-17 23:01 | CCD ---
Continuity of Care Document (CCD) Created on: 10/07/2020 BettyZhenon Kentrell External Reference #: [id number] : 1945 Sex: Female Author Author Leila COURTNEY M.D. Organization Unknown Address [address] [place] [address] Phone [phone] Care Team Providers Care Maintenance Tech Name Role Phone Noé Courtney MD AUTM [phone] Leo Herrera MD AUTM [phone] Armani Melgar OD AUTM [phone] Phillip Quinonez DO AUTM [phone] Ubaldo King MD AUTM [phone] Problems Active Problems Provider Date Hypothyroidism Noé Courtney M.D. Onset: 07/10/2015 Hyperlipidemia Noé Courtney M.D. Onset: 07/10/2015 Gastroesophageal reflux disease Noé Courtney M.D. Onset: 07/10/2015 Benign paroxysmal positional vertigo [...] tablet by mouth at bedtime 30tabs Noé Courtney M.D. 020 Synthroid 75mcg Tablets by mouth every other day (alternate with 88 mcg) 45tabs Noé Courtney M.D. 03/31/2020 Amlodipine Besylate 10mg Tablets 1 by mouth every day 90kathryn Courtney M.D. 12/13/2016 Lisinopril 10mg Tablets 1 by mouth every day 90kathryn Courtney M.D. 02/15/[address] 1 by mouth every day 90caps Noé Courtney M.D. 07/10/2015 Simvastatin 80mg Tablets 1 by mouth at bedtime 90kathryn Courtney M.D. 07/10/2015 Levothyroxine Sodium 88mcg Tablets 1 by mouth every day 90kathryn Courtney M.D. 07/10/2015 Aspirin 325mg Tablets 1 by mouth every day Noé Courtney M.D. 07/10/2015 Administration Of Flu Vaccine Inj ection Unknown Medications Administered in Office Medication SIG Qnty Indications Ordering Provider Date Administration Of Flu Vaccine Inj gricelda Courtney M.D. 07/09/2020 Administration Of Flu Vaccine Inj janieion Noé Courtney M.D. 08/08/2019 Administration Of Flu Vaccine Inj janieion Noé Courtney M.D. 07/26/2018 Administration Of Flu Vaccine Inj janieion Noé Courtney M.D. 08/03/2017 Administration Of Flu Vaccine Inj janieion Noé Courtney M.D. 08/03/2016 Administration Of Flu Vaccine Inj janieion Noé Courtney M.D. 08/06/2015 Immunizations CPT Code Status Date Vaccine Lot # 92266 Given 07/09/2020 Influenza Vaccin e Quadrivalent Preser/Antibiotic Free Im Use [id number] 38808 Given 08/08/2019 Influenza Vaccin e Quadrivalent Preser/Antibiotic Free Im Use 865285 05515 Given 07/26/2018 Influenza Virus Vaccine, Quadrivalent (Cciiv4), Derived From 0 Given 08/03/2017 Influenza Vaccin e Quadrivalent Preser/Antibiotic Free Im Use 870990 Q2037 Given 08/03/2016 Fluvirin Virus Vaccine 92746 01 Q2037 Given 08/06/2015 Fluvirin Virus Vaccine 10430 01 23243 Given 07/22/2014 Influenza Virus Vaccine 47540 Given 08/13/2013 Influenza Virus Vaccine 61519 Given 07/11/2012 Influenza Virus Vaccine 36031 Given 07/23/2011 Influenza Virus Vaccine 90761 Given 07/12/2010 Influenza Virus Vaccine 36266 Given 2009 Pneumovax 23 33361 Given 07/21/2009 Influenza Virus Vaccine 06360 Refused 04/26/2018 Zoster Vaccine 14536 Refused 11/14/2013 Zoster Vaccine Vital Signs Date [...] H/L Range Note Comprehensive Chem Profile 09/29/2020 [facility] Custom Stock Maker: [place] [address] [phone] Glucose 102 mg/dL High 74 - 99 [...] 60 mL/min >60 2 Lipid Profile 09/29/2020 [facility] Custom Stock Maker: [place] [address] [phone] Cholesterol 177 mg/dL 131 - 200 Triglycerides 126 mg/dL 30 - 150 HDL Cholesterol 63 mg/dL High 35 - 60 LDL (Calculated) 89 CALC 50 - 159 Laboratory test finding 09/29/2020 [facility] [employer] ivonne sloan Custom Stock Maker: Dr Wes [place] [id number] [phone] Thyroid Stimulating Hormone 0.58 uIU/mL 0.3 6 - 3.74 T4 Free 1.10 ng/dL 0.76 - 1.46 Laboratory test finding 05/26/2020 [facility] [place] Custom Stock Maker: Dr Wes Gillil[place] [address] [phone] Thyroid Stimulating Hormone 0.29 uIU/mL Low 0.3 [...] 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 Noé Courtney M.D. E78.5 Hyperlipidemia, unspecified E03.9 Hypothyroidism, unspecified I10 Essential (primary) hyperten miller K21.9 Gastro-esophageal reflux dis ease without esophagitis I71.4 Abdominal aortic aneurysm, w ithout rupture G47.09 Other insomnia M25.512 Pain in left shoulder Z13.89 Encounter for screening for other disorder Assessments Date Code Description Provider 09/30/2020 E78.5 Hyperlipidemia, unspecified Tiffanie Courtney M.D. 09/30/2020 E03.9 Hypothyroidism, unspecified Tiffanie Courtney M.D. 09/30/2020 I10 Essential (primary) hypertension Noé Courtney M.D. 09/30/2020 K21.9 Gastro-esophageal reflux disease without esophagitis Noé Courtney M.D. 09/30/2020 I71.4 Abdominal aortic aneurysm, witho ut rupture Noé Courtney M.D. 09/30/2020 G47.09 Other insomnia Noé Courtney M.D. 09/30/2020 M25.512 Pain in left shoulder Noé rhodes M.D. 09/30/2020 Z13.89 Encounter for screening for othe r disorder Noé Courtney M.D. 09/29/2020 I10 Essential (primary) hypertension Noé Courtney M.D. 09/29/2020 I10 Essential (primary) hypertension Lab Schedule 09/29/2020 E78.5 Hyperlipidemia, unspecified Tiffanie Courtney M.D. 09/29/2020 E78.5 Hyperlipidemia, unspecified Lab Schedule 09/29/2020 E03.9 Hypothyroidism, unspecified Tiffanie Courtney M.D. 09/29/2020 E03.9 Hypothyroidism, unspecified Lab Schedule 07/09/2020 Z23 Encounter for immunization Noé Courtney M.D. 07/09/2020 Z23 Encounter for immunization Nurse Schedule 05/26/2020 E03.9 Hypothyroidism, unspecified Tiffanie Courtney M.D. 05/26/2020 E03.9 Hypothyroidism, unspecified Lab Schedule Plan of Treatment Future Appointment(s):* 04/05/2021 8:20 am - Lab Schedule at [facility] * 04/06/2021 9:00 am - Noé Courtney M.D. at [facility] 09/30/2020 - Noé Courtney M.D.* E78.5 Hyperlipidemia, unspecified * E03.9 Hypothyroidism, unspecified * I10 Essential (primary) hypertension * K21.9 Gastro-esophageal reflux disease without esophagitis * I71.4 Abdominal aortic aneurysm, without rupture * G47.09 Other insomnia * M25.512 Pain in left shoulder * Z13.89 Encounter for screening for other disorder * * Comments:* 1. Hyperlipidemia: Generally doing [...] better with injection from Dr Colon at [facility]. We will monitor.Ongoing cares: Patient is going [...]
--- OUTSIDE RECORDS SUMMARY | 2020-11-17 23:01 | CCD | Continuity of Care Document ---
Author Author Lab Schedule, Leila Pfeiffer Organization Unknown Address [address] [place] [address] Phone Unavailable Care Team Providers Care Administrator Of Home Health Name Role Phone Noé Michaels MD AUTM [phone] Leo Herrera MD AUTM [phone] Armani Melgar OD AUTM [phone] CristhianPhillip dupree DO AUTM [phone] Problems Active Problems Provider Date Hypothyroidism Noé [...] 88 mcg) 45tabs Noé Michaels M.D. 03/31/2020 Zofran 4mg Tablets 1 by mouth every 6 hrs. as needed nausea 60tabs K55.061 Dinh Quinteros, JEANNINE 12/04/2017 Amlodipine Besylate 10mg Tablets 1 by mouth [...] CPT Code Status Date Vaccine Lot # 53732 Given 07/09/2020 Influenza Vaccin e Quadrivalent Preser/Antibiotic Free Im Use [id number] 67991 Given 08/08/2019 Influenza Vaccin e Quadrivalent Preser/Antibiotic Free Im Use 560985 88845 Given 07/26/2018 Influenza Virus Vaccine, Quadrivalent (Cciiv4), Derived From 5 Given 08/03/2017 Influenza Vaccin e Quadrivalent Preser/Antibiotic Free Im Use 279354 Q2037 Given 08/03/2016 Fluvirin Virus Vaccine 13247 01 Q2037 Given 08/06/2015 Fluvirin Virus Vaccine 15839 01 77006 Given 07/22/2014 Influenza Virus Vaccine 58598 Given 08/13/2013 Influenza Virus Vaccine 84596 Given 07/11/2012 Influenza Virus Vaccine 96553 Given 07/23/2011 Influenza Virus Vaccine 55282 Given 07/12/2010 Influenza Virus Vaccine 45308 Given 2009 Pneumovax 23 42599 Given 07/21/2009 Influenza Virus Vaccine 35085 Refused 04/26/2018 Zoster Vaccine 67366 Refused 11/14/2013 Zoster Vaccine Vital Signs Date Vital Result Comment 03/31/2020 8:48am BP Systolic 120 mmHg BP Diastolic 72 mmHg Heart Rate 68 /min Weight 176.00 lb 09/30/2019 10:26am BP Systolic 128 mmHg BP Diastolic 74 mmHg Heart Rate 72 /min Weight 173.00 lb Results Test Acquired Date Facility Test Result H/L Range Note Laboratory test finding 05/26/2020 [facility] ivonne sloan Market Research Consultant: Dr Wes Gilliland [place] [id number] [phone] Thyroid Stimulating Hormone 0.29 uIU/mL Low 0.3 6 - 3.74 T4 Free 1.10 ng/dL 0.76 - 1.46 Procedures Date Code Description Status 06/09/2020 [id number] Mammogram Completed 03/07/2019 [id number] Mammogram Completed 02/13/2018 [id number] Mammogram Completed 01/24/2017 [id number] Mammogram Completed 12/25/2015 [id number] Mammogram Completed Medical Devices Description No Information Available Encounters Type Date Location Provider Dx Diagnosis Office Visit 03/31/2020 9:00a [facility] Noé Michaels M.D. E03.9 Hypothyroidism, unspecified I10 Essential (primary) hyperten miller K21.9 Gastro-esophageal reflux dis ease without esophagitis E78.5 Hyperlipidemia, unspecified I71.4 Abdominal aortic aneurysm, w ithout rupture R51 Headache M25.511 Pain in right shoulder Assessments Date Code Description Provider 07/09/2020 Z23 Encounter for immunization Noé Michaels M.D. 07/09/2020 Z23 Encounter for immunization Nurse Schedule 05/26/2020 E03.9 Hypothyroidism, unspecified Tiffanie Michaels M.D. 05/26/2020 E03.9 Hypothyroidism, unspecified Lab Schedule 03/31/2020 E03.9 Hypothyroidism, unspecified Tiffanie Michaels M.D. 03/31/2020 I10 Essential (primary) hypertension Noé Michaels M.D. 03/31/2020 K21.9 Gastro-esophageal reflux disease without esophagitis Noé Michaels M.D. 03/31/2020 E78.5 Hyperlipidemia, unspecified Tiffanie Michaels M.D. 03/31/2020 I71.4 Abdominal aortic aneurysm, witho ut rupture Noé Michaels M.D. 03/31/2020 R51 Headache Noé Michaels M.D. 03/31/2020 M25.511 Pain in right shoulder Noé Michaels M.D. Plan of Treatment Future Appointment(s):* 09/30/2020 9:00 am [facility] * 09/30/2020 9:30 am - [facility] 09/30/2019 - Noé Michaels M.D.* E03.9 Hypothyroidism, unspecified * I10 Essential (primary) hypertension * K21.9 Gastro-esophageal reflux disease without esophagitis * E78.5 Hyperlipidemia, unspecified * I71.4 Abdominal aortic aneurysm, without rupture Functional Status Description No Information Available Mental Status Description No Information Available Referrals Description No Information Available
--- OUTSIDE RECORDS SUMMARY | 2020-11-17 23:01 | CCD | Continuity of Care Document ---
Author Author Leila COURTNEY M.D. Organization Unknown Address [address] [place] [address] Phone [phone] Care Team Providers Care Wooden Fence Erector Name Role Phone Noé Courtney MD AUTM [phone] Leo Herrera MD AUTM [phone] Armani Melgar OD AUTM [phone] Phillip Quinonez DO AUTM [phone] Ubaldo King MD AUTM [phone] Problems Active Problems Provider Date Hypothyroidism Noé [...] 88 mcg) 45tabs Noé Courtney M.D. 03/31/2020 Zofran 4mg Tablets 1 by mouth every 6 hrs. as needed nausea 60tabs K55.061 ROMA NealP 12/04/2017 Amlodipine Besylate 10mg Tablets 1 by mouth every day 90tayamila Courtney M.D. 12/13/2016 Lisinopril 10mg Tablets 1 by mouth every day 90kathryn Courtney M.D. 02/15/[address] 1 by mouth every day 90caps Noé Courtney M.D. 07/10/2015 Simvastatin 80mg Tablets 1 by mouth at bedtime 90tayamila Courtney M.D. 07/10/2015 Levothyroxine Sodium 88mcg Tablets [...] CPT Code Status Date Vaccine Lot # 80563 Given 07/09/2020 Influenza Vaccin e Quadrivalent Preser/Antibiotic Free Im Use 879350 71923 Given 08/08/2019 Influenza Vaccin e Quadrivalent Preser/Antibiotic Free Im Use 427494 69219 Given 07/26/2018 Influenza Virus Vaccine, Quadrivalent (Cciiv4), Derived From 2 Given 08/03/2017 Influenza Vaccin e Quadrivalent Preser/Antibiotic Free Im Use 669128 Q2037 Given 08/03/2016 Fluvirin Virus Vaccine 84672 01 Q2037 Given 08/06/2015 Fluvirin Virus Vaccine 29385 01 45919 Given 07/22/2014 Influenza Virus Vaccine 36515 Given 08/13/2013 Influenza Virus Vaccine 84378 Given 07/11/2012 Influenza Virus Vaccine 75865 Given 07/23/2011 Influenza Virus Vaccine 63992 Given 07/12/2010 Influenza Virus Vaccine 96408 Given 2009 Pneumovax 23 58963 Given 07/21/2009 Influenza Virus Vaccine 82429 Refused 04/26/2018 Zoster Vaccine 53017 Refused 11/14/2013 Zoster Vaccine Vital Signs Date [...] H/L Range Note Comprehensive Chem Profile 09/29/2020 [facility] Horticulture Worker: [place] [address] [phone] Glucose 102 mg/dL High 74 - 99 [...] 60 mL/min >60 2 Lipid Profile 09/29/2020 [facility] Horticulture Worker: [place] [address] [phone] Cholesterol 177 mg/dL 131 - 200 Triglycerides 126 mg/dL 30 - 150 HDL Cholesterol 63 mg/dL High 35 - 60 LDL (Calculated) 89 CALC 50 - 159 Laboratory test finding 09/29/2020 [facility] [employer] [facility] ivonne sloan Horticulture Worker: Dr Wes [place] [address] [phone] Thyroid Stimulating Hormone 0.58 uIU/mL 0.3 6 - 3.74 T4 Free 1.10 ng/dL 0.76 - 1.46 Laboratory test finding 05/26/2020 [facility] ivonne sloan Horticulture Worker: [place] [address] [phone] Thyroid Stimulating Hormone 0.29 uIU/mL Low 0.3 [...] 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 07/09/2020 Z23 Encounter for immunization Nurse Schedule 05/26/2020 E03.9 Hypothyroidism, unspecified Tiffanie Courtney M.D. 05/26/2020 E03.9 Hypothyroidism, unspecified Lab Schedule Plan of Treatment No Information Available Functional Status Description No Information Available Mental Status Description No Information Available Referrals Description No Information Available
--- OUTSIDE RECORDS SUMMARY | 2020-11-17 23:01 | CCD | Continuity of Care Document ---
Author Author Nurse #2Leila Organization Unknown Address [address] [place] [address] Phone Unavailable Care Team Providers Care Medical Field Representative Name Role Phone Néo Michaels MD AUTM [phone] Leo Herrera MD AUTM [phone] Armani Melgar OD AUTM [phone] Phillip Quinonez DO AUTM [phone] Ubaldo King MD AUTM [phone] Problems Active Problems Provider Date Hypothyroidism Noé [...] 6 hrs. as needed nausea 60tabs K55.061 JEANNINE Neal 12/04/2017 Amlodipine Besylate 10mg Tablets 1 by [...] CPT Code Status Date Vaccine Lot # 33339 Given 07/09/2020 Influenza Vaccin e Quadrivalent Preser/Antibiotic Free Im Use [id number] 61487 Given 08/08/2019 Influenza Vaccin e Quadrivalent Preser/Antibiotic Free Im Use 140517 18150 Given 07/26/2018 Influenza Virus Vaccine, Quadrivalent (Cciiv4), Derived From 1 Given 08/03/2017 Influenza Vaccin e Quadrivalent Preser/Antibiotic Free Im Use 662728 Q2037 Given 08/03/2016 Fluvirin Virus Vaccine 37935 01 Q2037 Given 08/06/2015 Fluvirin Virus Vaccine 09258 01 82495 Given 07/22/2014 Influenza Virus Vaccine 23584 Given 08/13/2013 Influenza Virus Vaccine 32691 Given 07/11/2012 Influenza Virus Vaccine 65531 Given 07/23/2011 Influenza Virus Vaccine 73337 Given 07/12/2010 Influenza Virus Vaccine 61875 Given 2009 Pneumovax 23 76971 Given 07/21/2009 Influenza Virus Vaccine 53118 Refused 04/26/2018 Zoster Vaccine 16213 Refused 11/14/2013 Zoster Vaccine Vital Signs Date [...] H/L Range Note Comprehensive Chem Profile 09/29/2020 [facility] Production Line: [place] [address] [phone] Glucose 102 mg/dL High 74 - 99 [...] 60 mL/min >60 2 Lipid Profile 09/29/2020 [facility] Production Line: [place] [address] [phone] Cholesterol 177 mg/dL 131 - 200 Triglycerides 126 mg/dL 30 - 150 HDL Cholesterol 63 mg/dL High 35 - 60 LDL (Calculated) 89 CALC 50 - 159 Laboratory test finding 09/29/2020 [facility] [employer] Consultant ivonne sloan Production Line: Dr Wes [address] [place], [place] [address] [phone] Thyroid Stimulating Hormone 0.58 uIU/mL 0.3 6 - 3.74 T4 Free 1.10 ng/dL 0.76 - 1.46 Laboratory test finding 05/26/2020 [facility] [employer] ivonne sloan Production Line: Dr Wes [place] [id number] [phone] Thyroid Stimulating Hormone 0.29 uIU/mL Low 0.3 [...] LITTLE GFR LEFT 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
--- OUTSIDE RECORDS SUMMARY | 2020-11-17 23:02 | CCD ---
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 Name Role Phone Felix Michaels MD Unavailable Unavailable Felix Michaels MD Unavailable Unavailable Felix Michaels MD Unavailable Unavailable Felix Michaels MD Unavailable Unavailable Felix Michaels MD Unavailable Unavailable Felix Michaels MD Unavailable Unavailable eFlix Michaels MD Unavailable Unavailable Felix Michaels MD Unavailable Unavailable Felix Michaels MD Unavailable Unavailable Felix Michaels MD Unavailable Unavailable Felix Michaels MD Unavailable Unavailable Felix Michaels MD Unavailable Unavailable Felix Michaels MD Unavailable Unavailable Felix Michaels MD Unavailable Unavailable Felix Michaels MD Unavailable Unavailable Felix Michaels MD Unavailable Unavailable Felix Michaels MD Unavailable Unavailable Felix Michaels MD Unavailable Unavailable Felix Michaels MD Unavailable Unavailable Felix Michaels MD Unavailable Unavailable Felix Michaels MD Unavailable Unavailable Felix Michaels MD Unavailable Unavailable Felix Michaels MD Unavailable Unavailable Felix Michaels MD Unavailable Unavailable Felix Michaels MD Unavailable Unavailable Felix Michaels MD Unavailable Unavailable Felix Michaels MD Unavailable Unavailable Felix Michaels MD Unavailable Unavailable Felix Michaels MD Unavailable Unavailable Felix Michaels MD Unavailable Unavailable Felix Michaels MD Unavailable Unavailable Felix Michaels MD Unavailable Unavailable Felix Michaels MD Unavailable Unavailable White F Noé Unavailable Unavailable White F Noé Unavailable Unavailable White, F Noé Unavailable Unavailable White F Noé Unavailable Unavailable White F Noé Unavailable Unavailable White F Noé Unavailable Unavailable White F Noé Unavailable Unavailable White, F Noé Unavailable Unavailable White, F Noé Unavailable Unavailable White F Noé Unavailable Unavailable White, F Noé Unavailable Unavailable White F Noécrystal WOOD Unavailable Unavailable White, F Noé Unavailable Unavailable White, F Noé Unavailable Unavailable White, F Noé Unavailable Unavailable White, F Noé Unavailable Unavailable White, F Noé Unavailable Unavailable White, F Noé Unavailable Unavailable White, F Noé Unavailable Unavailable White, F Noé Unavailable Unavailable White, F Noé Unavailable Unavailable White F Noécrystal WOOD Unavailable Unavailable White F Noécrystal WOOD Unavailable Unavailable White, F Noé WOOD Unavailable Unavailable White F Noé WOOD Unavailable Unavailable White F Noé WOOD Unavailable Unavailable White F Noé WOOD Unavailable Unavailable White F Noé WOOD Unavailable Unavailable White F Noé WOOD Unavailable Unavailable White F Noé WOOD Unavailable Unavailable White F Noé WOOD Unavailable Unavailable White F Noé WOOD Unavailable Unavailable White F Noé WOOD Unavailable Unavailable White F Noé WOOD Unavailable Unavailable Brando F Noé WOOD Unavailable Unavailable Brando F Noé WOOD Unavailable Unavailable Brando F Noé WOOD Unavailable Unavailable White F Noé WOOD Unavailable Unavailable White F Noé WOOD Unavailable Unavailable Brando F Noé WOOD Unavailable Unavailable White F Noé WOOD Unavailable Unavailable Brando F Noé WOOD Unavailable Unavailable Brando F Noé WOOD Unavailable Unavailable Brando F Noé WOOD Unavailable Unavailable Brando F Noé WOOD Unavailable Unavailable White F Noé WOOD Unavailable Unavailable White F Noé WOOD Unavailable Unavailable White F Noé WOOD Unavailable Unavailable White F Noé WOOD Unavailable Unavailable Brando F Noé WOOD Unavailable Unavailable Brando F Noé WOOD Unavailable Unavailable Brando F Noé WOOD Unavailable Unavailable Brando F Noé WOOD Unavailable Unavailable Brando F Noé WOOD Unavailable Unavailable White F Noé WOOD Unavailable Unavailable White F Noé WOOD Unavailable Unavailable Brando F Noé WOOD Unavailable Unavailable Brando F Noé WOOD Unavailable Unavailable Brando F Noé WOOD Unavailable Unavailable Brando F Noé WOOD Unavailable Unavailable Brando F Noé WOOD Unavailable Unavailable Brando F Noé WOOD Unavailable Unavailable Brando F Noé WOOD Unavailable Unavailable White F Noé WOOD Unavailable Unavailable White F Noé Unavailable Unavailable White F Noé Unavailable Unavailable White F Noé WOOD Unavailable Unavailable White F Noé WOOD Unavailable Unavailable White F Noé WOOD Unavailable Unavailable White F Noé WOOD Unavailable Unavailable White F Noé WOOD Unavailable Unavailable White F Noé WOOD Unavailable Unavailable White F Noé WOOD Unavailable Unavailable White F Noé WOOD Unavailable Unavailable White F Noé WOOD Unavailable Unavailable White F Noé WOOD Unavailable Unavailable White F Noé WOOD Unavailable Unavailable White F Noé WOOD Unavailable Unavailable White F Noé WOOD Unavailable Unavailable White F Noé WOOD Unavailable Unavailable White F Noé Unavailable Unavailable White F Noé WOOD Unavailable Unavailable White F Noé WOOD Unavailable Unavailable Brando F Noé WOOD Unavailable Unavailable Brando F Noé WOOD Unavailable Unavailable White F Noé WOOD Unavailable Unavailable Brando F Noé WOOD Unavailable Unavailable Brando F Noé WOOD Unavailable Unavailable rBando F Noé WOOD Unavailable Unavailable Brando F Noé WOOD Unavailable Unavailable Brando F Noé WOOD Unavailable Unavailable Brando F Noé WOOD Unavailable Unavailable Brando F Noé WOOD Unavailable Unavailable Brando F Noé WOOD Unavailable Unavailable Brando F Noé WOOD Unavailable Unavailable Brando F Noé WOOD Unavailable Unavailable Brando F Noé WOOD Unavailable Unavailable Brando F Noé WOOD Unavailable Unavailable Brando F Noé WOOD Unavailable Unavailable Felix Michaels MD Unavailable Unavailable Brando F Noé WOOD Unavailable Unavailable Brando F Noé WOOD Unavailable Unavailable Brando F Noé WOOD Unavailable Unavailable Felix Michaels MD Unavailable Unavailable Felix Michaels MD Unavailable Unavailable Felix Michaels MD Unavailable Unavailable Felix Michaels MD Unavailable Unavailable Felix Michaels MD Unavailable Unavailable Brando F Noé WOOD Unavailable Unavailable Brando F Noé WOOD Unavailable Unavailable Brando F Noé WOOD Unavailable Unavailable Brando F Noé WOOD Unavailable Unavailable Felix Michaels MD Unavailable Unavailable Mal King MD Unavailable Unavailable Mal King MD Unavailable Unavailable Mal King MD Unavailable Unavailable Mal King MD Unavailable Unavailable Mal King MD Unavailable Unavailable Mal King MD Unavailable Unavailable Mal King MD Unavailable Unavailable Mal King MD Unavailable Unavailable Mal King MD Unavailable Unavailable Vaneenenaam, Mal Conner MD Unavailable Unavailable Vaneenenaam, Mal Conner MD Unavailable Unavailable Vaneenenaam, Mal Conner MD Unavailable Unavailable Vaneenenaam, Mal Conner MD Unavailable Unavailable Vaneenenaam, Mal Conner MD Unavailable Unavailable Vaneenenaam, Mal Conner MD Unavailable Unavailable Vaneenenaam, Mal Conner MD Unavailable Unavailable Vaneenenaam, Mal Conner MD Unavailable Unavailable Vaneenenaam, Mal Conner MD Unavailable Unavailable Vaneenenaam, Mal Conner MD Unavailable Unavailable Vaneenenaam, Mal Conner MD Unavailable Unavailable Vaneenenaam, Mal Conner MD Unavailable Unavailable Vaneenenaam, Mal Conner MD Unavailable Unavailable Vaneenenaam, Mal Conner MD Unavailable Unavailable Vaneenenaam, Mal Conner MD Unavailable Unavailable Vaneenenaam, Mal Conner MD Unavailable Unavailable Vaneenenaam, Mal Conner MD Unavailable Unavailable Vaneenenaam, Mal Conner MD Unavailable Unavailable Vaneenenaam, Mal Conner MD Unavailable Unavailable Vaneenenaam, Mal Connre MD Unavailable Unavailable Vaneenenaam, Mal Conner MD Unavailable Unavailable Vaneenenaam, Mal Conner MD Unavailable Unavailable Vaneenenaam, Mal Conner MD Unavailable Unavailable Vaneenenaam, Mal Conner MD Unavailable Unavailable Vaneenenaam, Mal Conner MD Unavailable Unavailable Vaneenenaam, Mal Conner MD Unavailable Unavailable Vaneenenaam, aMl Conner MD Unavailable Unavailable Vaneenenaam, Mal Conner MD Unavailable Unavailable Vaneenenaam, Mal Conner MD Unavailable Unavailable Vaneenenaam, Mal Conner MD Unavailable Unavailable Vaneenenaam, Mal Conner MD Unavailable Unavailable Vaneenenaam, Mal Conner MD Unavailable Unavailable Vaneenenaam, Mal Conner MD Unavailable Unavailable Re-disclosure Warning The records that you are about to access may contain information from federally-assisted alcohol or drug abuse programs. If such information is present, then the following federally mandated warning applies: This information has been disclosed to you from records protected by federal confidentiality rules (42 CFR part 2). The federal rules prohibit you from making any further disclosure of this information unless further disclosure is expressly permitted by the written consent of the person to whom it pertains or as otherwise permitted by 42 CFR part 2. A general authorization for the release of medical or other information is NOT sufficient for this purpose. The Federal rules restrict any use of the information to criminally investigate or prosecute any alcohol or drug abuse patient.The records that you are about to access may contain highly sensitive health information, the redisclosure of which is protected by Article 27-F of the [facility] Public Health law. If you continue you may have access to information: Regarding HIV / AIDS; Provided by facilities licensed or operated by the [facility] Office of Mental Health; or Provided by the [facility] Office for People With Developmental Disabilities. If such information is present, then the following [facility] mandated warning applies: This information has been disclosed to you from confidential records which are protected by state law. State law prohibits you from making any further disclosure of this information without the specific written consent of the person to whom it pertains, or as otherwise permitted by law. Any unauthorized further disclosure in violation of state law may result in a fine or intermediate sentence or both. A general authorization for the release of medical or other information is NOT sufficient authorization for further disc losure. Family History Family Member Name Family Member Gender Family Member Status Date o f Status Description Data Source(s) Unknown Male Problem [facility] ([facility] ) () Unknown Female Problem [facility] ([facility]) Encounters Encounter Providers Location Date Indications Data Source(s ) Office Visit Attender: Noé Hernandez 09/30 08:30:00 AM EST [facility] ([facility] ) Outpatient Attender: Mal King MD Physical Therap y 09/08/2020 07:30:00 AM EST [facility] ([facility]) Outpatient Referrer: Noé Michaels MD 04/13/2020 08:09:00 AM EDT [facility] Outpatient Referrer: Noé Michaels MD 04/13/2020 08:09:00 AM EDT [facility] Outpatient Referrer: Noé Michaels MD 04/13/2020 08:07:00 AM EDT [facility] Outpatient Referrer: Noé Michaels MD 04/01/2020 10:45:00 AM EDT [facility] Outpatient Attender: Noé Hernandez 03/31 09:00:00 AM EDT [facility] ([facility] ) OFFICE OUTPATIENT NEW 30 MINUTES Attender: Mal Duckworth am, MD Physical Therapy 12/12/2019 12:45:00 PM EST [facility] ([facility] ) Immunizations Vaccine Date Status Description Data Source(s) Influenza, injectable, MDCK, preservative free, son valent 07/09/2020 09:49:00 AM EDT completed [facility]) Medications Medication Brand Name Start Date Product Form Dose Route Admi nistrative Instructions Pharmacy Instructions Status Indications Reaction Description Data Source(s) Trazodone Hydrochloride 50 MG Oral Tablet Trazodone HCL 09/30/2020 12:00:00 AM EST ORAL active [facility] ([facility]) Administration Of Flu Vaccine 07/09/2020 12:00:00 AM EDT [facility] Medication administered onsite Levothyroxine Sodium 0.075 MG Oral Tablet [Synthroid] Synthr oid 03/31/2020 12:00:00 AM EDT ORAL active M [facility] ([facility]) Insurance Providers Payer name Policy type / Coverage type Policy ID Covered alliance party ID Covered alliance party's relationship to fish Policy Fish Plan Information MEDICARE [id number] SP [id number] MEDICARE C [id number] S [id number] MEDICARE [id number] SP [id number] A MEDICARE C [id number] S [id number] A Medicare Natl Govt Servic Medicare Primary [id number] Self [id number] Medicare Natl Govt Servic Medicare Primary [id number] Self [id number] Medicare [facility] Medicare Primary [id number] Self [id number] Medicare [facility] Medicare Primary [id number] Self [id number] Medicare [place] Govt [employer] Medicare Primary [id number] Self [id number] Medicare [place] Govt Servic Medicare Primary [id number] Self [id number] Medicare [place] Govt Servic Medicare Primary [id number] Self [id number] Medicare [place] Govt Servic Medicare Primary Self MEDICARE [id number] SP [id number] D MEDICARE C [id number] S [id number] D MEDICARE -O/P [id number] 18 [id number] D Problems, Conditions, and Diagnoses Code Display Name Description Problem Type Effective Dates Data Source(s) [id number] Essential hypertension Essential hypertension Problem 12/12/2019 12:00:00 AM EST [facility] ([facility]) [id number] Pure hypercholesterolemia Pure hypercholesterolemia Pr oblem 12/12/2019 12:00:00 AM EST [facility] ([facility]) Surgeries/Procedures Procedure Description Date Indications Data Source(s) ARTHROCENTESIS ASPIR&/INJECTION MAJOR JT/BURSA 12:00:00 AM EST [facility] ([facility]) RADEX SHOULDER COMPLETE MINIMUM 2 VIEWS 09/08/2020 12: 00:00 AM EST [facility] ([facility]) Mammogram 06/09/2020 12:00:00 AM EDT [facility] ([facility]) THERAPEUTIC PX 1/> AREAS EACH 15 MIN EXERCISES 12:00:00 AM EDT [facility] ([facility]) Physical Therapy Eval - Low Complexity 12/25/2019 12:0 0:00 AM EST [facility] ([facility]) ARTHROCENTESIS ASPIR&/INJECTION MAJOR JT/BURSA 12:00:00 AM EST [facility] ([facility]) RADEX SHOULDER COMPLETE MINIMUM 2 VIEWS 12/12/2019 12: 00:00 AM EST [facility] ([facility]) Results ID Date Data Source [id number] 09/29/2020 08:21:00 AM EST [facility] ([facility]) Name Value Range Interpretation Code Description Data Concetta rce(s) Supporting Document(s) Thyroxine (T4) free [Mass/volume] in Serum or Plasma 1.10 ng/dL 0.76- 1.46 [facility] Thyrotropin [Units/volume] in Serum or Plasma by Detec tion limit <= 0.05 mIU/L 0.58 uIU/mL 0.36-3.74 [facility] ) ID Date Data Source [id number] 09/29/2020 08:21:00 AM EST [facility] ([facility]) Name Value Range Interpretation Code Description Data Concetta rce(s) Supporting Document(s) Triglyceride [Mass/volume] in Serum or Plasma 126 mg/dL 30-150 [facility] Cholesterol in HDL [Mass/volume] in Serum or Plasma 63 mg/dL 35-60 [facility]) Cholesterol [Mass/volume] in Serum or Plasma 177 mg/dL 131-200 [facility] ([facility]) Cholesterol in LDL [Mass/volume] in Serum or Plasma by calcu lation 89 CALC 50-159 [facility] ([facility]) ID Date Data Source [id number] 09/29/2020 08:21:00 AM EST [facility] ([facility]) Name Value Range Interpretation Code Description Data Concetta rce(s) Supporting Document(s) Glucose [Mass/volume] in Serum or Plasma 102 mg/dL 74-99 [facility] ([facility]) 100-125 mg/dL PRE-DIABETES/FASTING >126 mg/dL DIABETES/FASTING Sodium [Moles/volume] in Serum or Plasma 143 meq/L 136-145 [facility] ([facility]) Creatinine 0.9 mg/dL 0.6-1.3 [facility] ([facility] Urea nitrogen [Mass/volume] in Serum or Plasma 18 mg/dL 7-18 [facility] ([facility]) Carbon dioxide, total [Moles/volume] in Serum or Plasma 27 meq/L 21 -32 [facility] ([facility]) Potassium [Moles/volume] in Serum or Plasma 4.5 meq/L 3.5-5.1 [facility] ([facility]) Chloride [Moles/volume] in Serum or Plasma 104 meq/L 98-107 [facility] ([facility]) Calcium [Mass/volume] in Serum or Plasma 9.2 mg/dL 8.5-10.1 [facility] ([facility]) Alkaline phosphatase isoenzyme [Units/volume] in Serum or Pl asma 87 mg/dL 46-116 [facility] ([facility]) Aspartate aminotransferase [Enzymatic activity/volume] in Serum or Plasma 17 U/L 15-37 [facility] ([facility] ) Total Bilirubin 0.5 mg/dL 0.2-1.0 [facility] ([facility]) Albumin [Mass/volume] in Serum or Plasma 4.1 g/dL 3.4-5.0 [facility] ([facility]) Alanine aminotransferase [Enzymatic activity/volume] in Seru m or Plasma 28 U/L 12-78 [facility] ([facility]) Proteinase 3 Ab [Units/volume] in Serum 7.4 g/dL 6.4-8.2 [facility] A/G Ratio 1.24 CALC 1.00-1.90 [facility] Glomerular filtration rate/1.73 sq M pre dicted among non-blacks [Volume Rate/Area] in Serum or Plasma by Creatinine-based formula (MDRD) Laboratory test result [facility] Glomerular filtration rate/1.73 sq M pre dicted among blacks [Volume Rate/Area] in Serum or Plasma by Creatinine-based formula (MDRD) Laboratory test result [facility] <content>CHRONIC KIDNEY DISEASE STAGING PER NKF</content>
<content></content>
<content>STAGE I & II GFR >= 60 NORMAL TO MILDLY DECREASED</content>
<content>STAGE III GFR 30-59 MODERATELY DECREASED</content>
<content>STAGE IV GFR 15-29 SEVERELY DECREASED</content>
<content>STAGE V GFR <15 VERY LITTLE GFR LEFT</content>
<content>ESRD GFR <15 ON PRECISION INSTRUMENT MAKER AND REPAIRER</content>
<content></content> ID Date Data Source [id number] 05/26/2020 09:32:00 AM EDT [facility]) Name Value Range Interpretation Code Description Data Concetta rce(s) Supporting Document(s) Thyroxine (T4) free [Mass/volume] in Serum or Plasma 1.10 ng/dL 0.76- 1.46 [facility]) Thyrotropin [Units/volume] in Serum or Plasma by Detec tion limit <= 0.05 mIU/L 0.29 uIU/mL 0.36-3.74 [facility] ) ID Date Data Source [id number] 04/13/2020 12:00:00 AM EDT [facility] Noé Michaels MD Patient Name: RAFIA [id number] Date of : 1945[address] Date of Exam: 04/13/2020ANEL Holloway [id number]#: Fax: [phone] EXAM: US RETROPERITONEAL, LIMITED (AORTA, NODES OR KID)CLINICAL INFORMATION: Followup abdominal aortic aneurysm.Comparison is 07/21/2015 which showed a 3.3 cm sized proximal abdominalaortic aneurysm.Today's exam was p erformed in the same fashion as the prior exam.Once again, there is focal ectasia of the proximal abdominal aorta which isunchanged from prior exams. No common iliac arterial ectasia hasdeveloped.IMPRESSION:Stable exam.Accredited by the [employer] in General Ultrasound.JESSIE Mahajan/Aurea rebolledo for referring RAFIA SCHNEIDER to our office. Electronically Signed - SHAY GARCIA DO 04/13/20 16:53 Name Value Range Interpretation Code Description Data Concetta rce(s) Supporting Document(s) ID Date Data Source [id number] 03/30/2020 08:24:00 AM EDT [facility] ([facility]) Name Value Range Interpretation Code Description Data Concetta rce(s) Supporting Document(s) Thyrotropin [Units/volume] in Serum or Plasma by Detec tion limit <= 0.05 mIU/L 0.16 uIU/mL 0.36-3.74 [facility] ([facility] ) ID Date Data Source [id number] 03/30/2020 08:24:00 AM EDT [facility] ([facility]) Name Value Range Interpretation Code Description Data Concetta rce(s) Supporting Document(s) Cholesterol [Mass/volume] in Serum or Plasma 167 mg/dL 131-200 [facility] ([facility]) Cholesterol in HDL [Mass/volume] in Serum or Plasma 52 mg/dL 35-60 [facility] ([facility]) Triglyceride [Mass/volume] in Serum or Plasma 143 mg/dL 30-150 [facility] ([facility]) Cholesterol in LDL [Mass/volume] in Serum or Plasma by calcu lation 86 CALC 50-159 [facility] ([facility]) ID Date Data Source [id number] 03/30/2020 08:24:00 AM EDT [facility] ([facility]) Name Value Range Interpretation Code Description Data Concetta rce(s) Supporting Document(s) Glucose [Mass/volume] in Serum or Plasma 101 mg/dL 74-99 [facility] ([facility]) 100-125 mg/dL PRE-DIABETES/FASTING >126 mg/dL DIABETES/FASTING Urea nitrogen [Mass/volume] in Serum or Plasma 17 mg/dL 7-18 [facility] ([facility]) Sodium [Moles/volume] in Serum or Plasma 144 meq/L 136-145 [facility] ([facility]) Creatinine 0.9 mg/dL 0.6-1.3 [facility] ([facility]) Potassium [Moles/volume] in Serum or Plasma 4.4 meq/L 3.5-5.1 [facility] ([facility]) Alkaline phosphatase isoenzyme [Units/volume] in Serum or Pl asma 83 mg/dL 46-116 [facility] ([facility]) Carbon dioxide, total [Moles/volume] in Serum or Plasma 26 meq/L 21 -32 [facility] ([facility]) Chloride [Moles/volume] in Serum or Plasma 107 meq/L 98-107 [facility] ([facility]) Calcium [Mass/volume] in Serum or Plasma 8.7 mg/dL 8.5-10.1 [facility] ([facility]) Total Bilirubin 0.5 mg/dL 0.2-1.0 [facility] ([facility]) Alanine aminotransferase [Enzymatic activity/volume] in Seru m or Plasma 24 U/L 12-78 [facility] ([facility]) Aspartate aminotransferase [Enzymatic activity/volume] in Serum or Plasma 16 U/L 15-37 [facility] Proteinase 3 Ab [Units/volume] in Serum 7.3 g/dL 6.4-8.2 [facility] Albumin [Mass/volume] in Serum or Plasma 4.0 g/dL 3.4-5.0 [facility] A/G Ratio 1.21 CALC 1.00-1.90 [facility] Glomerular filtration rate/1.73 sq M pre dicted among non-blacks [Volume Rate/Area] in Serum or Plasma by Creatinine-based formula (MDRD) Laboratory test result [facility] ([facility] ) Glomerular filtration rate/1.73 sq M pre dicted among blacks [Volume Rate/Area] in Serum or Plasma by Creatinine-based formula (MDRD) Laboratory test result [facility]) <content>CHRONIC KIDNEY DISEASE STAGING PER NKF</content>
<content></content>
<content>STAGE I & II GFR >= 60 NORMAL TO MILDLY DECREASED</content>
<content>STAGE III GFR 30-59 MODERATELY DECREASED</content>
<content>STAGE IV GFR 15-29 SEVERELY DECREASED</content>
<content>STAGE V GFR <15 VERY LITTLE GFR LEFT</content>
<content>ESRD GFR <15 ON PRECISION INSTRUMENT MAKER AND REPAIRER</content>
<content></content> Procedure Vital Signs ID Date Data Source UNK Name Value Range Interpretation Code Description Data Source(s) Body mass index (BMI) [Ratio] 29.8 kg/m2 29.8 k g/m2 [facility] Oxygen saturation in Arterial blood by Pulse oximetry 96 % 96 % [facility] RM Air Body weight 176.25 [lb_av] 176.25 [lb_av] [facility] [facility]) Body height 64.5 [in_i] 64.5 [in_i] [facility] ([facility]) 5'4.50" Heart rate 71 /min 71 /min [facility] Diastolic blood pressure 80 mm[Hg] 80 mm[Hg] [facility] ([facility]) Systolic blood pressure 130 mm[Hg] 130 mm[Hg] M EDENT ([facility]) Body mass index (BMI) [Ratio] 30.9 kg/m2 30.9 k g/m2 [facility] ([facility] ) Body weight 178.38 [lb_av] 178.38 [lb_av] MEDEN T ([facility] ) Body height 63.75 [in_i] 63.75 [in_i] [facility] ([facility] ) 5'3.75" Body temperature 97.3 [degF] 97.3 [degF] [facility] ([facility] ) Body weight 176.00 [lb_av] 176.00 [lb_av] MEDEN T ([facility]) Heart rate 68 /min 68 /min [facility]) Diastolic blood pressure 72 mm[Hg] 72 mm[Hg] [facility] ([facility]) Systolic blood pressure 120 mm[Hg] 120 mm[Hg] M EDENT ([facility]) Body mass index (BMI) [Ratio] 29.2 kg/m2 29.2 k g/m2 [facility] ([facility] ) Body weight 173.00 [lb_av] 173.00 [lb_av] MEDEN T ([facility] ) Body height 64.5 [in_i] 64.5 [in_i] MED[facility] ([facility] ) 5'4.50" Body temperature 97.1 [degF] 97.1 [degF] [facility] ([facility] ) Body weight 173.00 [lb_av] 173.00 [lb_av] MEDEN T ([facility]) Heart rate 72 /min 72 /min [facility] ([facility]) Diastolic blood pressure 74 mm[Hg] 74 mm[Hg] [facility] ([facility]) Systolic blood pressure 128 mm[Hg] 128 mm[Hg] M EDENT ([facility])
[2020-11-17] MEDS ORDERED: ONDANSETRON 4MG/2ML VIAL IV ONE (23:30)
[2020-11-17] MEDS ORDERED: METHOCARBAMOL 1,000 MG/10 ML VIAL (J2800) IV ONE (23:30)
[2020-11-17] MEDS ORDERED: fentaNYL 100 MCG/2 ML INJECTION (J3010) IV ONE (23:30)
[2020-11-18] MEDS ORDERED: ISOVUE-370 76% 100ML VIAL As Ordered ONE (00:06)
[2020-11-18 00:20] LABS: BASO # 0.1 10^3/uL (0.0-0.2); BASO % 0.5 % (0.0-1.0); EOS # 0.2 10^3/uL (0.0-0.5); EOS % 1.3 % (0.0-3.0); HEMATOCRIT 42.5 % (36.0-47.0); HEMOGLOBIN 13.8 g/dl (12.0-15.5); LYMPH # 1.6 10^3/uL (1.5-5.0); MEAN CORPUSCULAR HGB CONC 32.5 g/dl (32.0-36.5); MEAN CORPUSCULAR VOLUME 89.3 fl (80.0-96.0); MONO # 1.3 10^3/uL (0.0-0.8); MONO % 9.8 % (0.0-5.0); NEUTROPHILS # 10.1 10^3/uL (1.5-8.5); NEUTROPHILS % 75.7 % (36.0-66.0); PLATELET COUNT, AUTOMATED 242 10^3/uL (150-450); RED BLOOD COUNT 4.76 10^6/uL (4.00-5.40); WHITE BLOOD COUNT 13.4 10^3/uL (4.0-10.0)
[2020-11-18 00:28] LABS: ALBUMIN 3.8 GM/DL (3.2-5.2); ALT/SGPT 25 U/L (12-78); BILIRUBIN,DIRECT 0.1 MG/DL (0.0-0.2); BILIRUBIN,TOTAL 0.3 MG/DL (0.2-1.0); CK-MB VALUE MASS < 1.0 NG/ML (<3.6); CPK CREATINE PHOSPHOKINASE 64 U/L (26-192); LIPASE 104 U/L (73-393); MB/CK RELATIVE INDEX 1.56 (< OR =4); TOTAL PROTEIN 7.4 GM/DL (6.4-8.2); TROPONIN I < 0.02 NG/ML (< 0.10)
[2020-11-18 00:42] LABS: C REACTIVE PROTEIN QUANTITATIV 0.93 MG/DL (0.00-0.30); FERRITIN 165 NG/ML (8-252); LDH LACTATE DEHYDROGENASE 232 U/L (84-246)
--- NOTE | 2020-11-18 00:57 | REPVR ---
PROCEDURE INFORMATION: Exam: CT Angiography Abdomen and Pelvis With Contrast Exam date and time: 11/17/2020 11:27 PM Age: 75 years old Clinical indication: Patient HX: Back pain; Additional info: Back pain, abd pain, R/O dissection TECHNIQUE: Imaging protocol: Computed tomographic angiography of the abdomen and pelvis with intravenous contrast material. 3D rendering (Not supervised by radiologist): MIP and/or 3D reconstructed images were created by the technologist. Radiation optimization: All CT scans at this facility use at least one of these dose optimization techniques: automated exposure control; mA and/or kV adjustment per patient size (includes targeted exams where dose is matched to clinical indication); or iterative reconstruction. Contrast material: ISO; Contrast volume: 100 ml; Contrast route: INTRAVENOUS (IV); COMPARISON: CT ABD PELVIS W/O FOL BY WIT 04/06/2018 10:29 AM FINDINGS: Lungs: Dependent atelectasis in the lung. Atherosclerotic [place]: Moderate atherosclerotic disease. Aorta: No aortic aneurysm. No aortic dissection. Celiac trunk and mesenteric arteries: No occlusion or significant stenosis. Renal arteries: No occlusion or significant stenosis. Right iliac arteries: No occlusion or significant stenosis. Right femoral/popliteal arteries: No occlusion or significant stenosis of the visualized common femoral artery. Left iliac arteries: No occlusion or significant stenosis. Left femoral/popliteal arteries: No occlusion or significant stenosis of the visualized common femoral artery. Liver: No mass. Gallbladder and bile ducts: Gallbladder is distended. No gallbladder wall thickening.No biliary ductal dilatation. Pancreas: Unremarkable. No mass. No ductal dilation. Spleen: Unremarkable. No splenomegaly. Adrenal glands: Unremarkable. No mass. Kidneys and ureters: Fullness of the renal collecting systems bilaterally. Dilated extrarenal pelvis on the right. Unchanged from prior. No demetrius hydronephrosis. No obstructing stone seen. Stomach and bowel: Moderate stool in the colon. Sigmoid diverticulosis without diverticulitis. No abnormal bowel dilatation. No abnormal bowel wall thickening. Appendix: The appendix is not seen. However, there is no evidence of appendicitis. Intraperitoneal space: Unremarkable. No free air. No significant fluid collection. Lymph nodes: Unremarkable. No enlarged lymph nodes. Urinary bladder: Unremarkable. No mass. Reproductive: Status post hysterectomy. Bones/joints: Severe degenerative spine. No acute fracture. Severe spinal stenosis at L3-L4. Degenerative changes of the pubic symphysis. Mild degenerative changes of the hips bilaterally. Soft tissues: Unremarkable. IMPRESSION: 1. No aortic aneurysm or dissection. 2. Incidental findings as described. Electronically signed by: Sissy Alaniz On 11/18/2020 00:56:59 AM
[2020-11-18 01:00] LABS: INR 1.05; PROTHROMBIN TIME 13.9 SECONDS (12.5-14.3)
[2020-11-18 01:01] LABS: PARTIAL THROMBOPLASTIN TIME 34.6 SECONDS (24.2-38.5)
[2020-11-18 01:04] LABS: D-DIMER QUANT 887.11 ng/ml (<500)
--- NOTE | 2020-11-18 01:05 | REPVR ---
PROCEDURE INFORMATION: Exam: CT Angiography Chest With Contrast Exam date and time: 11/17/2020 11:27 PM Age: 75 years old Clinical indication: Patient HX: Back pain; Additional info: Back pain, abd pain, R/O dissection TECHNIQUE: Imaging protocol: Computed tomographic angiography of the chest with intravenous contrast. 3D rendering (Not supervised by radiologist): MIP and/or 3D reconstructed images were created by the technologist. Radiation optimization: All CT scans at this facility use at least one of these dose optimization techniques: automated exposure control; mA and/or kV adjustment per patient size (includes targeted exams where dose is matched to clinical indication); or iterative reconstruction. Contrast material: ISO; Contrast volume: 100 ml; Contrast route: INTRAVENOUS (IV); COMPARISON: CT ABD/PEL W/IV CONTRAST ONLY 11/27/2017 1:27:14 PM FINDINGS: Limitations: Examination is limited by motion artifact. Pulmonary arteries: Normal. No pulmonary emboli. Aorta: No aortic aneurysm. No aortic dissection. Moderate atherosclerotic disease. . Bronchial tree: Visualized bronchial tree is unremarkable. Lungs: Dependent atelectasis in the lung. Triangular juxtapleural nodular density in the right middle lobe. (Series 401, image 47). Likely benign intrapulmonary node. Nodule in the posterior basal left lower lobe measuring 4 mm. (Series 401, image 39). Nodule in the lateral basal left lower lobe measuring 4 mm. (Series 402, image 48). Pleural space: Unremarkable. No pneumothorax. No pleural effusion. Heart: Unremarkable. No cardiomegaly. No pericardial effusion. Coronary arteries: Moderate coronary artery calcification. Lymph nodes: Unremarkable. No enlarged lymph nodes. Bones/joints: Mild degenerative spine. No acute fracture. Mild compression deformity of T12 of unknown exact age. Soft tissues: Unremarkable. IMPRESSION: 1. No aortic dissection. 2. Nodules in the lateral basal left lower lobe. For patients at low risk (minimal or absent history of smoking and of other known risk factors), no routine follow-up is indicated. For patients at high risk (history of smoking or of other known risk factors), consider optional CT Chest at 12 months. (Reference: Meseret) 3. Triangular juxtapleural nodular density in the right middle lobe. Likely benign intrapulmonary node. No follow-up is necessary. 4. Mild compression deformity of T12 of unknown exact age. New from 2018. REFERENCES: Meseret Ramirez et al. Guidelines for Management of Incidental Pulmonary Nodules Detected on CT Images: From the Fleischner Society 2017. Radiology. 2017;284(1):228-243. Electronically signed by: Sissy Alaniz On 11/18/2020 01:05:07 AM
[2020-11-18] MEDS ORDERED: NAPR-837 PO (02:37)
[2020-11-18] MEDS ORDERED: ROBA750T4 PO (02:38)
--- OUTSIDE RECORDS SUMMARY | 2020-11-18 02:42 | CCD ---
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 If you continue you may have access to information: Regarding HIV / AIDS; Provided by facilities licensed or operated by the [facility] Office of Mental Health; or Provided by the [facility] Office for People With Developmental Disabilities. If such information is present, then the following [facility] mandated warning applies: This information has been [...] Description Data Source(s) Unknown Male Problem MEDENT ([facility] ) () Unknown Female Problem [facility] ([facility]) Encounters Encounter Providers Location Date Indications Data Source(s ) Office Visit Attender: Noé Hernandez 09/30 08:30:00 AM EST MEDENT ([facility] ) Outpatient Attender: Mal King MD Physical Therap y 09/08/2020 07:30:00 AM EST [facility] ([facility]) Outpatient Referrer: Noé Michaels MD 04/13/2020 08:09:00 AM EDT [facility] Outpatient Referrer: Noé Michaels MD 04/13/2020 08:09:00 AM EDT [facility] Outpatient Referrer: Noé Michaels MD 04/13/2020 08:07:00 AM EDT [facility] Outpatient Referrer: Noé Michaels MD 04/01/2020 10:45:00 AM EDT [facility] Outpatient Attender: Noé Hernandez 03/31 09:00:00 AM EDT MEDENT ([facility] ) OFFICE OUTPATIENT NEW 30 MINUTES Attender: Mal Duckworth am, MD Physical Therapy 12/12/2019 12:45:00 PM EST MED[facility] ([facility] ) Immunizations Vaccine Date Status Description Data Source(s) Influenza, injectable, MDCK, preservative free, son valent 07/09/2020 09:49:00 AM EDT completed [facility]) Medications Medication Brand Name Start Date Product Form Dose Route Admi nistrative Instructions Pharmacy Instructions Status Indications Reaction Description Data Source(s) Trazodone Hydrochloride 50 MG Oral Tablet Trazodone HCL 09/30/2020 12:00:00 AM EST ORAL active [facility] ([facility]) Administration Of Flu Vaccine 07/09/2020 12:00:00 AM EDT completed [facility] Medication administered onsite Levothyroxine Sodium 0.075 MG Oral Tablet [Synthroid] Synthr oid 03/31/2020 12:00:00 AM EDT ORAL active M EDENT ([facility]) Insurance Providers Payer name Policy type / Coverage type Policy ID Covered democrat ID Covered democrat's relationship to fish Policy Fish Plan Information MEDICARE [id number] SP [id number] MEDICARE [id number] SP [id number] A MEDICARE C [id number] S [id number] [id number] MEDICARE C [id number] S [id number] A Medicare [place] Govt Servic Medicare Primary [id number] Self [id number] Medicare [place] Govt Servic Medicare Primary [id number] Self [id number] [place] Medicare Primary [id number] Self [id number] [place] Medicare Primary [id number] Self [id number] Medicare [place] [employer] Medicare Primary [id number] Self [id number] Medicare [place] Govt [employer] Medicare Primary [id number] Self [id number] Medicare [place] Govt [employer] Medicare Primary [id number] Self [id number] Medicare [place] Govt Servic Medicare Primary Self MEDICARE [id number] SP [id number] D MEDICARE C [id number] S [id number] D MEDICARE -O/P [id number] 18 [id number] D Problems, Conditions, and Diagnoses Code Display Name Description Problem Type Effective Dates Data Source(s) 57565302 Essential hypertension Essential hypertension Problem 12/12/2019 12:00:00 AM EST MEDENT ([facility]) [id number] Pure hypercholesterolemia Pure hypercholesterolemia Pr oblem 12/12/2019 12:00:00 AM EST MED[facility] ([facility]) Surgeries/Procedures Procedure Description Date Indications Data Source(s) ARTHROCENTESIS ASPIR&/INJECTION MAJOR JT/BURSA 12:00:00 AM EST MEDENT ([facility]) RADEX SHOULDER COMPLETE MINIMUM 2 VIEWS 09/08/2020 12: 00:00 AM EST MED[facility] ([facility]) Mammogram 06/09/2020 12:00:00 AM EDT M EDENT ([facility]) THERAPEUTIC PX 1/> AREAS EACH 15 MIN EXERCISES 12:00:00 AM EDT MED[facility] ([facility]) Physical Therapy Eval - Low Complexity 12/25/2019 12:0 0:00 AM EST MED[facility] ([facility]) ARTHROCENTESIS ASPIR&/INJECTION MAJOR JT/BURSA 12:00:00 AM EST MED[facility] ([facility]) RADEX SHOULDER COMPLETE MINIMUM 2 VIEWS 12/12/2019 12: 00:00 AM EST MED[facility] ([facility]) Results ID Date Data Source [id number] 09/29/2020 08:21:00 AM EST MED[facility] ([facility]) Name Value Range Interpretation Code Description Data Concetta rce(s) Supporting Document(s) Thyroxine (T4) free [Mass/volume] in Serum or Plasma 1.10 ng/dL 0.76- 1.46 [facility] Thyrotropin [Units/volume] in Serum or Plasma by Detec tion limit <= 0.05 mIU/L 0.58 uIU/mL 0.36-3.74 [facility] ) ID Date Data Source [id number] 09/29/2020 08:21:00 AM EST MED[facility] ([facility]) Name Value Range Interpretation Code Description Data Concetta rce(s) Supporting Document(s) Triglyceride [Mass/volume] in Serum or Plasma 126 mg/dL 30-150 [facility] ([facility]) Cholesterol in HDL [Mass/volume] in Serum or Plasma 63 mg/dL 35-60 [facility]) Cholesterol [Mass/volume] in Serum or Plasma 177 mg/dL 131-200 [facility] ([facility]) Cholesterol in LDL [Mass/volume] in Serum or Plasma by calcu lation 89 CALC 50-159 [facility] ([facility]) ID Date Data Source [id number] 09/29/2020 08:21:00 AM EST [facility] ([facility]) Name Value Range Interpretation Code Description Data Concetta rce(s) Supporting Document(s) Glucose [Mass/volume] in Serum or Plasma 102 mg/dL 74-99 [facility] ([facility]) 100-125 mg/dL PRE-DIABETES/FASTING >126 mg/dL DIABETES/FASTING Sodium [Moles/volume] in Serum or Plasma 143 meq/L 136-145 [facility] ([facility]) Creatinine 0.9 mg/dL 0.6-1.3 [facility] Urea nitrogen [Mass/volume] in Serum or Plasma 18 mg/dL 7-18 [facility] ([facility]) Carbon dioxide, total [Moles/volume] in Serum or Plasma 27 meq/L 21 -32 [facility] ([facility]) Potassium [Moles/volume] in Serum or Plasma 4.5 meq/L 3.5-5.1 [facility] ([facility]) Chloride [Moles/volume] in Serum or Plasma 104 meq/L 98-107 [facility] ([facility]) Calcium [Mass/volume] in Serum or Plasma 9.2 mg/dL 8.5-10.1 [facility] ([facility]) Alkaline phosphatase isoenzyme [Units/volume] in Serum or Pl asma 87 mg/dL 46-116 [facility] ([facility]) Aspartate aminotransferase [Enzymatic activity/volume] in Serum or Plasma 17 U/L 15-37 [facility] ([facility] ) Total Bilirubin 0.5 mg/dL 0.2-1.0 [facility] ([facility]) Albumin [Mass/volume] in Serum or Plasma 4.1 g/dL 3.4-5.0 [facility] ([facility]) Alanine aminotransferase [Enzymatic activity/volume] in Seru m or Plasma 28 U/L 12-78 [facility] ([facility]) Proteinase 3 Ab [Units/volume] in Serum 7.4 g/dL 6.4-8.2 [facility]) A/G Ratio 1.24 CALC 1.00-1.90 [facility] Glomerular filtration rate/1.73 sq M pre dicted among non-blacks [Volume Rate/Area] in Serum or Plasma by Creatinine-based formula (MDRD) Laboratory test result [facility] Glomerular filtration rate/1.73 sq M pre dicted among blacks [Volume Rate/Area] in Serum or Plasma by Creatinine-based formula (MDRD) Laboratory test result [facility] <content>CHRONIC KIDNEY DISEASE STAGING PER NKF</content>
<content></content>
<content>STAGE I & II GFR >= 60 NORMAL TO MILDLY DECREASED</content>
<content>STAGE III GFR 30-59 MODERATELY DECREASED</content>
<content>STAGE IV GFR 15-29 SEVERELY DECREASED</content>
<content>STAGE V GFR <15 VERY LITTLE GFR LEFT</content>
<content>ESRD GFR <15 ON OXYGEN SYSTEM TESTER</content>
<content></content> ID Date Data Source [id number] 05/26/2020 09:32:00 AM EDT [facility] ([facility]) Name Value Range Interpretation Code Description Data Concetta rce(s) Supporting Document(s) Thyroxine (T4) free [Mass/volume] in Serum or Plasma 1.10 ng/dL 0.76- 1.46 [facility] ([facility]) Thyrotropin [Units/volume] in Serum or Plasma by Detec tion limit <= 0.05 mIU/L 0.29 uIU/mL 0.36-3.74 [facility] ([facility] ) ID Date Data Source [id number] 04/13/2020 12:00:00 AM EDT [facility] Noé Michaels MD Patient Name: RAFIA [id number] Date of : 1945[address] Date of Exam: 04/13/2020ANEL Holloway [id number]#: Fax: [phone] EXAM: US RETROPERITONEAL, LIMITED (AORTA, NODES OR KID)CLINICAL INFORMATION: Followup abdominal aortic aneurysm.Comparison is 07/21/2015 which showed a 3.3 cm sized proximal abdominalaortic aneurysm.Today's exam was p erformed in the same fashion as the prior exam.Once again, there is focal ectasia of the proximal abdominal aorta which isunchanged from prior exams. No common iliac arterial ectasia hasdeveloped.IMPRESSION:Stable exam.Accredited by the [employer] in General Ultrasound.JESSIE Mahajan/Aurea rebolledo for referring RAFIA SCHNEIDER to our office. Electronically Signed - SHAY GARCIA DO 04/13/20 16:53 Name Value Range Interpretation Code Description Data Concetta rce(s) Supporting Document(s) ID Date Data Source [id number] 03/30/2020 08:24:00 AM EDT MED[facility] ([facility]) Name Value Range Interpretation Code Description Data Concetta rce(s) Supporting Document(s) Thyrotropin [Units/volume] in Serum or Plasma by Detec tion limit <= 0.05 mIU/L 0.16 uIU/mL 0.36-3.74 [facility] ([facility] ) ID Date Data Source [id number] 03/30/2020 08:24:00 AM EDT [facility] ([facility]) Name Value Range Interpretation Code Description Data Concetta rce(s) Supporting Document(s) Cholesterol [Mass/volume] in Serum or Plasma 167 mg/dL 131-200 [facility] ([facility]) Cholesterol in HDL [Mass/volume] in Serum or Plasma 52 mg/dL 35-60 [facility] ([facility]) Triglyceride [Mass/volume] in Serum or Plasma 143 mg/dL 30-150 [facility] ([facility]) Cholesterol in LDL [Mass/volume] in Serum or Plasma by calcu lation 86 CALC 50-159 [facility] ([facility]) ID Date Data Source [id number] 03/30/2020 08:24:00 AM EDT [facility] ([facility]) Name Value Range Interpretation Code Description Data Concetta rce(s) Supporting Document(s) Glucose [Mass/volume] in Serum or Plasma 101 mg/dL 74-99 [facility] ([facility]) 100-125 mg/dL PRE-DIABETES/FASTING >126 mg/dL DIABETES/FASTING Urea nitrogen [Mass/volume] in Serum or Plasma 17 mg/dL 7-18 [facility] ([facility]) Sodium [Moles/volume] in Serum or Plasma 144 meq/L 136-145 [facility] ([facility]) Creatinine 0.9 mg/dL 0.6-1.3 [facility] ([facility] Potassium [Moles/volume] in Serum or Plasma 4.4 meq/L 3.5-5.1 [facility] ([facility]) Alkaline phosphatase isoenzyme [Units/volume] in Serum or Pl asma 83 mg/dL 46-116 [facility] ([facility]) Carbon dioxide, total [Moles/volume] in Serum or Plasma 26 meq/L 21 -32 [facility] ([facility]) Chloride [Moles/volume] in Serum or Plasma 107 meq/L 98-107 [facility] ([facility]) Calcium [Mass/volume] in Serum or Plasma 8.7 mg/dL 8.5-10.1 [facility] ([facility]) Total Bilirubin 0.5 mg/dL 0.2-1.0 [facility] ([facility]) Alanine aminotransferase [Enzymatic activity/volume] in Seru m or Plasma 24 U/L 12-78 [facility] ([facility]) Aspartate aminotransferase [Enzymatic activity/volume] in Serum or Plasma 16 U/L 15-37 [facility] ) Proteinase 3 Ab [Units/volume] in Serum 7.3 g/dL 6.4-8.2 [facility] ([facility]) Albumin [Mass/volume] in Serum or Plasma 4.0 g/dL 3.4-5.0 [facility]) A/G Ratio 1.21 CALC 1.00-1.90 [facility] Glomerular filtration rate/1.73 sq M pre dicted among non-blacks [Volume Rate/Area] in Serum or Plasma by Creatinine-based formula (MDRD) Laboratory test result [facility] ([facility] ) Glomerular filtration rate/1.73 sq M pre dicted among blacks [Volume Rate/Area] in Serum or Plasma by Creatinine-based formula (MDRD) Laboratory test result [facility] ([facility]) <content>CHRONIC KIDNEY DISEASE STAGING PER NKF</content>
<content></content>
<content>STAGE I & II GFR >= 60 NORMAL TO MILDLY DECREASED</content>
<content>STAGE III GFR 30-59 MODERATELY DECREASED</content>
<content>STAGE IV GFR 15-29 SEVERELY DECREASED</content>
<content>STAGE V GFR <15 VERY LITTLE GFR LEFT</content>
<content>ESRD GFR <15 ON OXYGEN SYSTEM TESTER</content>
<content></content> Procedure Vital Signs ID Date Data Source UNK Name Value Range Interpretation Code Description Data Source(s) Body mass index (BMI) [Ratio] 29.8 kg/m2 29.8 k g/m2 [facility]) Oxygen saturation in Arterial blood by Pulse oximetry 96 % 96 % [facility]) RM Air Body weight 176.25 [lb_av] 176.25 [lb_av] MEDEN T ([facility]) Body height 64.5 [in_i] 64.5 [in_i] [facility] ([facility]) 5'4.50" Heart rate 71 /min 71 /min [facility] Diastolic blood pressure 80 mm[Hg] 80 mm[Hg] [facility] ([facility]) Systolic blood pressure 130 mm[Hg] 130 mm[Hg] M EDENT ([facility]) Body mass index (BMI) [Ratio] 30.9 kg/m2 30.9 k g/m2 [facility] ([facility] Body weight 178.38 [lb_av] 178.38 [lb_av] MEDEN T ([facility] ) Body height 63.75 [in_i] 63.75 [in_i] [facility] ([facility] 5'3.75" Body temperature 97.3 [degF] 97.3 [degF] [facility] ([facility] Body weight 176.00 [lb_av] 176.00 [lb_av] MEDEN T ([facility]) Heart rate 68 /min 68 /min [facility] ([facility]) Diastolic blood pressure 72 mm[Hg] 72 mm[Hg] [facility] ([facility]) Systolic blood pressure 120 mm[Hg] 120 mm[Hg] M EDENT ([facility]) Body mass index (BMI) [Ratio] 29.2 kg/m2 29.2 k g/m2 [facility] ([facility] ) Body weight 173.00 [lb_av] 173.00 [lb_av] MEDEN T ([facility] ) Body height 64.5 [in_i] 64.5 [in_i] [facility] ([facility] 5'4.50" Body temperature 97.1 [degF] 97.1 [degF] [facility] ([facility] Body weight 173.00 [lb_av] 173.00 [lb_av] MEDEN T ([facility]) Heart rate 72 /min 72 /min [facility]) Diastolic blood pressure 74 mm[Hg] 74 mm[Hg] [facility] ([facility]) Systolic blood pressure 128 mm[Hg] 128 mm[Hg] M EDENT ([facility])
[2020-11-18 02:50] VITALS: BP 163/91
--- NOTE | 2020-11-18 14:48 | ECGEPIP ---
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
--- NOTE | 2020-11-20 08:12 | ED PDOC ---
Post-Departure Follow-Up radiology report faxed to Roxanna Mayorga MD Nov 20, 2020 08:12
== END 2020-11-18 02:53 | disposition home or self-care (01) ==
LOC: M ED 22:54
DX: S22.089A Unspecified fracture of T11-T12 vertebra, initial encounter for closed fracture (principal); M54.5 Low back pain; R91.8 Other nonspecific abnormal finding of lung field; X58.XXXA Exposure to other specified factors, initial encounter; Y92.9 Unspecified place or not applicable; Y93.9 Activity, unspecified; Y99.9 Unspecified external cause status; I25.10 Atherosclerotic heart disease of native coronary artery without angina pectoris; I10 Essential (primary) hypertension; K21.9 Gastro-esophageal reflux disease without esophagitis; Z79.82 Long term (current) use of aspirin; Z79.899 Other long term (current) drug therapy; Z88.5 Allergy status to narcotic agent
CPT/HCPCS: 71275; 74174; 80047; 80076; 81001; 82550; 82553; 82728; 83615; 83690; 84484; 85025; 85379; 85384; 85610; 85730; 86140; 87088; 87186; 93005; 93041; 96374; 96375; 99285; J2405; J2800; J3010; Q9967

== ENCOUNTER → 2020-12-02 | Outpatient (REF) | payer MEDICARE ==
[~2020-12-02] MED LIST changes: +LISI10TA22 PO; -LISI10TA4 PO; +NAPR-837 PO; +ROBA750T4 PO
[2020-12-02 16:04] LABS: BACTERIA, URINE AUTO NEGATIVE (NEGATIVE); MUCUS, URINE SMALL (NEGATIVE); RBC, URINE AUTO 1 /HPF (0-3); SQUAMOUS EPITHELIAL CELL UR AU 1 /HPF (0-6); WBC, URINE AUTO 1 /HPF (0-3)
== END ==
LOC: M LAB REF 15:20
PROVIDERS: ATTEND Family Medicine
DX: M54.5 Low back pain (principal); R31.21 Asymptomatic microscopic hematuria; N39.0 Urinary tract infection, site not specified

== ENCOUNTER → 2021-07-15 | Outpatient (CLI) | payer MEDICARE ==
[~2021-07-15] MED LIST changes: +OMEP40CA4 PO; -OMEP40CA97 PO
--- NOTE | 2021-07-15 10:12 | REPMRS ---
Patient History The patient states she has not had a clinical breast exam in over a year. Family history of breast cancer at age 50 or over in maternal aunt. Patient states no breast complaints today. Patient has signed MRS History Sheet. Digital Woman Screen Mammo: July 15, 2021 - Exam #: [id number] Bilateral CC and MLO view(s) were taken. Technologist: Khloe Anna, Technologist Prior study comparison: June 09, 2020, bilateral digital woman screen mammo performed at [facility] [place]. March 07, 2019, bilateral digital woman screen mammo performed at [facility] [place]. FINDINGS: There are scattered fibroglandular densities. Screening. Digital screening (2D) mammography was performed bilaterally in the CC and MLO projections. Additionally, breast tomosynthesis (3D mammography) was performed bilaterally in the CC and MLO projections. Todays exam was compared to the prior exam/exams. By history, the patient has no complaints of a palpable breast abnormality or other significant breast complaints. The Volpara volumetric breast density category is B, there are scattered areas of fibroglandular densities. There are stable, benign, intramammary lymph nodes, bilaterally. The breasts are unchanged in size and shape. There are no zaire-soft tissue densities or spiculated masses. There is no internal architectural distortion. There are no suspicious zaire-calcific clusters. Skin thickening or nipple retraction is not present. IMPRESSION: BI-RADS Category 2- Benign Findings. There is no evidence of malignant alteration of the breasts. Followup examination recommended in one year. This mammogram was read with the assistance of [facility] [employer],an FDA approved computer aided detection system for mammography. The lifetime Tyrer-Cuzick score is 2.3% Negative x-ray reports should not delay surgical consultation if a dominant or clinically suspicious mass is present. Not all breast cancers can be identified by mammography. Therefore, we recommend that you continue to perform regular breast self-examination and physical examination and then promptly contact your physician of any concerns or changes. Adenosis and dense breasts may obscure an underlying neoplasm. No significant changes when compared with prior studies. Assessment: BI-RADS/ACR category 2 mammogram. Benign Findings. Recommendation Routine screening mammogram of both breasts in 1 year. Electronically Signed By: Saud Perry MD 07/15/21 1010
== END ==
LOC: M WHC 08:57
PROVIDERS: ATTEND Family Medicine
DX: Z12.31 Encounter for screening mammogram for malignant neoplasm of breast (principal); Z80.3 Family history of malignant neoplasm of breast

== ENCOUNTER 2022-02-20 18:39 | Inpatient (IN) | payer MEDICARE ==
[~2022-02-20] VITALS: Ht 165.1 cm; Wt 98.1 kg
[2022-02-20] MEDS ORDERED: LEVO75TA4 PO (18:48)
[2022-02-20] MEDS ORDERED: ONDANSETRON 4MG/2ML VIAL IV ONE (20:10)
[2022-02-20] MEDS: NS 1,000 ML IV SCH ×2 (20:10→21:56)
[2022-02-20] MEDS ORDERED: ACETAMINOPHEN TAB 650MG DOSE (2X325MG) PO ONE (20:10)
[2022-02-20] MEDS: GASTROGRAFIN SOLUTION 30ML PO SCH ×2 (20:45→21:15)
[2022-02-20 21:17] LABS: BASO % 0.3 % (0.0-1.0); EOS # 0.1 10^3/uL (0.0-0.5); EOS % 0.6 % (0.0-3.0); HEMATOCRIT 39.4 % (36.0-47.0); HEMOGLOBIN 13.2 g/dl (12.0-15.5); LYMPH # 1.5 10^3/uL (1.5-5.0); LYMPH % 10.2 % (24.0-44.0); MEAN CORPUSCULAR HEMOGLOBIN 29.1 pg (27.0-33.0); MEAN CORPUSCULAR HGB CONC 33.5 g/dl (32.0-36.5); MEAN CORPUSCULAR VOLUME 86.8 fl (80.0-96.0); MONO # 1.2 10^3/uL (0.0-0.8); MONO % 8.4 % (2.0-8.0); NEUTROPHILS # 11.4 10^3/uL (1.5-8.5); NEUTROPHILS % 79.8 % (36.0-66.0); PLATELET COUNT, AUTOMATED 243 10^3/uL (150-450); RED BLOOD COUNT 4.54 10^6/uL (4.00-5.40); WHITE BLOOD COUNT 14.3 10^3/uL (4.0-10.0)
[2022-02-20 21:27] LABS: INR 0.95; PROTHROMBIN TIME 13.1 SECONDS (12.7-14.5)
[2022-02-20 21:28] LABS: PARTIAL THROMBOPLASTIN TIME 32.5 SECONDS (25.9-37.0)
[2022-02-20 21:39] LABS: ALBUMIN 3.8 GM/DL (3.2-5.2); ALT/SGPT 27 U/L (12-78); BILIRUBIN,DIRECT 0.1 MG/DL (0.0-0.2); BILIRUBIN,TOTAL 0.5 MG/DL (0.2-1.0); BLOOD UREA NITROGEN 14 MG/DL (7-18); CALCIUM LEVEL 9.3 MG/DL (8.8-10.2); CARBON DIOXIDE LEVEL 24 MEQ/L (21-32); CHLORIDE LEVEL 109 MEQ/L (98-107); CREATININE FOR GFR 0.94 MG/DL (0.55-1.30); GLOMERULAR FILTRATION RATE > 60.0 (>39); GLUCOSE, FASTING 131 MG/DL (70-100); LIPASE 63 U/L (73-393); POTASSIUM SERUM 3.8 MEQ/L (3.5-5.1); SODIUM LEVEL 141 MEQ/L (136-145); TOTAL PROTEIN 7.2 GM/DL (6.4-8.2)
[2022-02-20] MEDS ORDERED: ISOVUE-370 76% 100ML VIAL As Ordered ONE (22:44)
[2022-02-21] MEDS ORDERED: ASPI81TA26 PO (01:06)
[2022-02-21] MEDS ORDERED: ZOCO80TA PO (01:06)
[2022-02-21 01:10] LABS: RSV AMPLIFICATION NEGATIVE (NEGATIVE)
[2022-02-21] MEDS ORDERED: HOME MED LIST COMPLETE! XX SCH (01:10)
[2022-02-21] MEDS: cefTRIAXone SOD 1 GM in D5W MINI-BAG PLUS 50 ML IV SCH (01:43)
[2022-02-21] MEDS: LR 1,000 ML IV SCH ×3 (01:43→23:47)
[2022-02-21 02:53] LABS: HEMATOCRIT 36.9 % (36.0-47.0); HEMOGLOBIN 12.1 g/dl (12.0-15.5)
[2022-02-21] MEDS: metroNIDAZOLE 500 MG in IV 1 EA IV SCH ×3 (03:23→20:19)
[2022-02-21] MEDS: SIMVASTATIN 40 MG TAB PO SCH (09:13)
[2022-02-21] MEDS: SUCRALFATE 1 GM TAB PO SCH ×3 (09:13→20:19)
[2022-02-21] MEDS: PANTOPRAZOLE 40MG VIAL IV SCH ×2 (09:13→20:19)
[2022-02-21 11:32] LABS: BASO # 0.1 10^3/uL (0.0-0.2); BASO % 0.5 % (0.0-1.0); EOS # 0.1 10^3/uL (0.0-0.5); EOS % 1.1 % (0.0-3.0); HEMATOCRIT 38.1 % (36.0-47.0); HEMOGLOBIN 12.5 g/dl (12.0-15.5); LYMPH # 1.7 10^3/uL (1.5-5.0); MEAN CORPUSCULAR HEMOGLOBIN 29.3 pg (27.0-33.0); MEAN CORPUSCULAR HGB CONC 32.8 g/dl (32.0-36.5); MEAN CORPUSCULAR VOLUME 89.2 fl (80.0-96.0); NEUTROPHILS # 9.4 10^3/uL (1.5-8.5); NEUTROPHILS % 75.9 % (36.0-66.0); RED BLOOD COUNT 4.27 10^6/uL (4.00-5.40); WHITE BLOOD COUNT 12.4 10^3/uL (4.0-10.0)
[2022-02-21 12:03] LABS: ALBUMIN 3.7 GM/DL (3.2-5.2); ALT/SGPT 25 U/L (12-78); BILIRUBIN,TOTAL 0.6 MG/DL (0.2-1.0); BLOOD UREA NITROGEN 8 MG/DL (7-18); CARBON DIOXIDE LEVEL 27 MEQ/L (21-32); CHLORIDE LEVEL 110 MEQ/L (98-107); CREATININE FOR GFR 0.75 MG/DL (0.55-1.30); GLOMERULAR FILTRATION RATE > 60.0 (>39); GLUCOSE, FASTING 101 MG/DL (70-100); MAGNESIUM LEVEL 2.3 MG/DL (1.8-2.4); SODIUM LEVEL 141 MEQ/L (136-145); TOTAL PROTEIN 6.6 GM/DL (6.4-8.2)
[2022-02-21 12:16] LABS: PLATELET COUNT, AUTOMATED 202 10^3/uL (150-450)
[2022-02-21 20:02] VITALS: BP 147/69
[2022-02-21] MEDS: LEVOTHYROXINE 75MCG TABLET (0.075MG) PO SCH (20:19)
[2022-02-22] VITALS: BP 137/71
[2022-02-22] MEDS ORDERED: ONDANSETRON 4MG ORAL DISINTEGRATING TAB PO PRN (01:50)
[2022-02-22] MEDS: cefTRIAXone SOD 1 GM in D5W MINI-BAG PLUS 50 ML IV SCH (02:36)
[2022-02-22] MEDS: metroNIDAZOLE 500 MG in IV 1 EA IV SCH ×3 (03:19→17:07)
[2022-02-22 04:00] VITALS: BP 139/66
[2022-02-22 05:53] LABS: BASO # 0.1 10^3/uL (0.0-0.2); BASO % 0.6 % (0.0-1.0); EOS # 0.1 10^3/uL (0.0-0.5); EOS % 1.2 % (0.0-3.0); HEMATOCRIT 36.2 % (36.0-47.0); HEMOGLOBIN 11.9 g/dl (12.0-15.5); LYMPH # 1.4 10^3/uL (1.5-5.0); LYMPH % 15.2 % (24.0-44.0); MEAN CORPUSCULAR HEMOGLOBIN 29.5 pg (27.0-33.0); MEAN CORPUSCULAR HGB CONC 32.9 g/dl (32.0-36.5); MEAN CORPUSCULAR VOLUME 89.8 fl (80.0-96.0); MONO # 0.7 10^3/uL (0.0-0.8); MONO % 7.7 % (2.0-8.0); NEUTROPHILS # 7.1 10^3/uL (1.5-8.5); NEUTROPHILS % 74.9 % (36.0-66.0); PLATELET COUNT, AUTOMATED 213 10^3/uL (150-450); RED BLOOD COUNT 4.03 10^6/uL (4.00-5.40); WHITE BLOOD COUNT 9.4 10^3/uL (4.0-10.0)
[2022-02-22 06:24] LABS: BLOOD UREA NITROGEN 6 MG/DL (7-18); CALCIUM LEVEL 8.7 MG/DL (8.8-10.2); CARBON DIOXIDE LEVEL 27 MEQ/L (21-32); CHLORIDE LEVEL 110 MEQ/L (98-107); CREATININE FOR GFR 0.76 MG/DL (0.55-1.30); GLOMERULAR FILTRATION RATE > 60.0 (>39); GLUCOSE, FASTING 106 MG/DL (70-100); MAGNESIUM LEVEL 2.3 MG/DL (1.8-2.4); POTASSIUM SERUM 3.9 MEQ/L (3.5-5.1); SODIUM LEVEL 142 MEQ/L (136-145)
[2022-02-22 07:29] VITALS: BP 150/62
[2022-02-22] MEDS: LR 1,000 ML IV SCH ×3 (07:34→18:29)
[2022-02-22] MEDS: SIMVASTATIN 40 MG TAB PO SCH (08:19)
[2022-02-22] MEDS: PANTOPRAZOLE 40MG VIAL IV SCH ×2 (08:20→20:02)
[2022-02-22] MEDS: SUCRALFATE 1 GM TAB PO SCH ×3 (08:20→20:02)
[2022-02-22] MEDS ORDERED: PREVNAR 13 VACCINE SYRINGE IM ONE (09:00)
[2022-02-22 11:25] VITALS: BP 131/62
[2022-02-22 16:00] VITALS: BP 140/69
[2022-02-22] MEDS: LEVOTHYROXINE 75MCG TABLET (0.075MG) PO SCH (18:29)
[2022-02-22] MEDS ORDERED: ACETAMINOPHEN TAB 650MG DOSE (2X325MG) PO PRN (19:50)
[2022-02-22 20:00] VITALS: BP 159/76
[2022-02-23] VITALS: BP 109/56
[2022-02-23] MEDS: cefTRIAXone SOD 1 GM in D5W MINI-BAG PLUS 50 ML IV SCH (00:41)
[2022-02-23] MEDS: metroNIDAZOLE 500 MG in IV 1 EA IV SCH ×2 (01:40→09:39)
[2022-02-23] MEDS: LR 1,000 ML IV SCH ×2 (03:28→11:17)
[2022-02-23 04:00] VITALS: BP 119/57
[2022-02-23 06:38] LABS: BASO # 0.1 10^3/uL (0.0-0.2); BASO % 0.7 % (0.0-1.0); EOS # 0.2 10^3/uL (0.0-0.5); EOS % 3.1 % (0.0-3.0); HEMATOCRIT 37.4 % (36.0-47.0); HEMOGLOBIN 12.2 g/dl (12.0-15.5); LYMPH # 1.6 10^3/uL (1.5-5.0); LYMPH % 21.6 % (24.0-44.0); MEAN CORPUSCULAR HEMOGLOBIN 29.2 pg (27.0-33.0); MEAN CORPUSCULAR HGB CONC 32.6 g/dl (32.0-36.5); MEAN CORPUSCULAR VOLUME 89.5 fl (80.0-96.0); MONO # 0.7 10^3/uL (0.0-0.8); MONO % 10.2 % (2.0-8.0); NEUTROPHILS # 4.6 10^3/uL (1.5-8.5); NEUTROPHILS % 63.8 % (36.0-66.0); PLATELET COUNT, AUTOMATED 212 10^3/uL (150-450); RED BLOOD COUNT 4.18 10^6/uL (4.00-5.40); WHITE BLOOD COUNT 7.2 10^3/uL (4.0-10.0)
[2022-02-23 07:06] LABS: BLOOD UREA NITROGEN 4 MG/DL (7-18); CALCIUM LEVEL 9.2 MG/DL (8.8-10.2); CARBON DIOXIDE LEVEL 27 MEQ/L (21-32); CHLORIDE LEVEL 109 MEQ/L (98-107); GLOMERULAR FILTRATION RATE > 60.0 (>39); GLUCOSE, FASTING 96 MG/DL (70-100); MAGNESIUM LEVEL 2.1 MG/DL (1.8-2.4); POTASSIUM SERUM 3.8 MEQ/L (3.5-5.1); SODIUM LEVEL 144 MEQ/L (136-145)
[2022-02-23 07:28] VITALS: BP 143/80
[2022-02-23] MEDS ORDERED: CALCIUM CARBONATE 500 MG CHEW U/D PO PRN (08:40)
[2022-02-23 09:36] VITALS: BP 134/76
[2022-02-23] MEDS: PANTOPRAZOLE 40MG VIAL IV SCH (09:36)
[2022-02-23] MEDS: SIMVASTATIN 40 MG TAB PO SCH (09:37)
[2022-02-23] MEDS: SUCRALFATE 1 GM TAB PO SCH (09:37)
[2022-02-23 12:00] VITALS: BP 153/71
[2022-02-23] MEDS ORDERED: CEFD300C41 PO (12:50)
[2022-02-23] MEDS ORDERED: METR-265 PO (12:50)
== END 2022-02-23 15:35 | disposition home or self-care (01) | DRG 394 ==
LOC: M ED 18:39 → M ED INP 02-21 01:31 → ENRESERV 02-21 18:26 → M PCU 02-21 19:50
PROVIDERS: ADMIT Family Medicine; ATTEND Family Medicine
DX: K55.9 Vascular disorder of intestine, unspecified (principal); K62.5 Hemorrhage of anus and rectum; I10 Essential (primary) hypertension; E78.5 Hyperlipidemia, unspecified; E03.9 Hypothyroidism, unspecified; G47.00 Insomnia, unspecified; M54.2 Cervicalgia; Z90.49 Acquired absence of other specified parts of digestive tract; Z90.79 Acquired absence of other genital organ(s); Z66 Do not resuscitate; Z20.822 Contact with and (suspected) exposure to COVID-19; Z79.82 Long term (current) use of aspirin; Z79.899 Other long term (current) drug therapy; Z88.5 Allergy status to narcotic agent; K21.9 Gastro-esophageal reflux disease without esophagitis; D72.829 Elevated white blood cell count, unspecified

== ENCOUNTER → 2022-03-04 | Outpatient (REF) | payer MEDICARE ==
[~2022-03-04] MED LIST changes: +ASPI81TA26 PO; +CEFD300C41 PO; +LEVO75TA4 PO; +METR-265 PO; +ZOCO80TA PO
== END ==
LOC: M LAB REF 15:25
PROVIDERS: ATTEND Internal Medicine
DX: K52.3 Indeterminate colitis (principal)

== ENCOUNTER → 2022-05-15 | Outpatient (CLI) | payer MEDICARE | LOC: M LABSMTC 08:44 | PROVIDERS: ATTEND Anesthesiology | DX: Z01.812 Encounter for preprocedural laboratory examination (principal); Z20.822 Contact with and (suspected) exposure to COVID-19 ==

== ENCOUNTER 2022-05-19 10:46 | Day surgery (SDC) | payer MEDICARE ==
[~2022-05-19] VITALS: Ht 165.1 cm; Wt 73.0 kg
[~2022-05-19 10:46] MED LIST changes: +LIDOCAINE 2% 100MG/5ML SDV (FOR ANES.) As Ordered ONE; +NS 1,000 ML IV ONE; +fentaNYL 100 MCG/2 ML INJECTION As Ordered ONE; +propofoL 500 MG/50 ML VIAL As Ordered ONE
[2022-05-19] MEDS ORDERED: NS 1,000 ML IV SCH (11:20)
[2022-05-19 13:14] VITALS: BP 133/72
== END 2022-05-19 13:28 | disposition home or self-care (01) ==
LOC: M OPP 10:46
PROVIDERS: ATTEND Surgery
DX: D12.6 Benign neoplasm of colon, unspecified (principal); K57.30 Diverticulosis of large intestine without perforation or abscess without bleeding; K62.5 Hemorrhage of anus and rectum; R10.84 Generalized abdominal pain; K21.00 Gastro-esophageal reflux disease with esophagitis, without bleeding; E78.00 Pure hypercholesterolemia, unspecified; E03.9 Hypothyroidism, unspecified; K52.9 Noninfective gastroenteritis and colitis, unspecified; Z79.02 Long term (current) use of antithrombotics/antiplatelets; Z79.899 Other long term (current) drug therapy; Z88.5 Allergy status to narcotic agent; Z91.89 Other specified personal risk factors, not elsewhere classified
CPT/HCPCS: 43235; 45385; 88305; J3010

== ENCOUNTER → 2022-07-29 | Outpatient (CLI) | payer MEDICARE ==
[~2022-07-29] MED LIST changes: -LIDOCAINE 2% 100MG/5ML SDV (FOR ANES.) As Ordered ONE; -NS 1,000 ML IV ONE; -fentaNYL 100 MCG/2 ML INJECTION As Ordered ONE; -propofoL 500 MG/50 ML VIAL As Ordered ONE
== END ==
LOC: M WHC 08:49
PROVIDERS: ATTEND Family Medicine
DX: Z12.31 Encounter for screening mammogram for malignant neoplasm of breast (principal)

== ENCOUNTER → 2023-08-28 | Outpatient (CLI) | payer MEDICARE ==
[~2023-08-28] MED LIST changes: -CEFD300C41 PO; +CEFD300C42 PO
== END ==
LOC: M WHC 09:37
PROVIDERS: ATTEND Family Medicine
DX: Z12.31 Encounter for screening mammogram for malignant neoplasm of breast (principal)

== ENCOUNTER → 2024-01-16 | Outpatient (CLI) | payer MEDICARE ==
[~2024-01-16] MED LIST changes: +CEFD1CAP9 PO; -CEFD300C42 PO
== END ==
LOC: M WHC 08:54
PROVIDERS: ATTEND Family Medicine
DX: M85.89 Other specified disorders of bone density and structure, multiple sites (principal)

== ENCOUNTER 2024-06-25 08:54 | Inpatient (IN) | payer MEDICARE ==
[~2024-06-25] VITALS: Ht 165.1 cm; Wt 77.6 kg
[2024-06-25] MEDS: NS 500 ML IV ONE ×2 (09:28→10:50)
[2024-06-25] MEDS: METOCLOPRAMIDE INJ 10MG/2ML VIAL IV ONE (09:28)
[2024-06-25 09:31] LABS: BASO # 0.1 10^3/uL (0.0-0.2); BASO % 0.4 % (0.0-1.0); EOS # 0.1 10^3/uL (0.0-0.5); EOS % 0.6 % (0.0-3.0); HEMATOCRIT 38.2 % (36.0-47.0); HEMOGLOBIN 12.7 g/dl (12.0-15.5); LYMPH % 6.5 % (24.0-44.0); MEAN CORPUSCULAR HEMOGLOBIN 29.4 pg (27.0-33.0); MEAN CORPUSCULAR HGB CONC 33.2 g/dl (32.0-36.5); MEAN CORPUSCULAR VOLUME 88.4 fl (80.0-96.0); MONO # 1.9 10^3/uL (0.0-0.8); MONO % 12.3 % (2.0-8.0); NEUTROPHILS # 11.8 10^3/uL (1.5-8.5); NEUTROPHILS % 78.7 % (36.0-66.0); PLATELET COUNT, AUTOMATED 204 10^3/uL (150-450); RED BLOOD COUNT 4.32 10^6/uL (4.00-5.40)
[2024-06-25 09:42] LABS: ALBUMIN 3.2 G/DL (3.2-5.2); BILIRUBIN,DIRECT 0.2 MG/DL (<0.4); BILIRUBIN,TOTAL 0.6 MG/DL (0.3-1.2); CALCIUM LEVEL 8.6 MG/DL (8.3-10.6); CREATININE FOR GFR 1.76 MG/DL (0.55-1.30); GLOMERULAR FILTRATION RATE 29.6 (>32); POTASSIUM SERUM 3.4 MMOL/L (3.5-5.1); TOTAL PROTEIN 6.9 G/DL (5.7-8.2)
[2024-06-25] MEDS: FAMOTIDINE 20MG/2ML VIAL IVP ONE (09:53)
[2024-06-25] MEDS ORDERED: ACET-683 PO (10:41)
[2024-06-25] MEDS ORDERED: HOME MED LIST COMPLETE! XX SCH (10:45)
[2024-06-25] MEDS: NS 1,000 ML IV SCH ×2 (11:08→15:05)
[2024-06-25] MEDS: SIMVASTATIN 40 MG TAB PO SCH (15:24)
[2024-06-25] MEDS: PANTOPRAZOLE 40MG VIAL IV SCH (15:25)
[2024-06-25 15:45] VITALS: BP 144/79; TEMP 98.1; O2SAT 97
[2024-06-25 15:48] LABS: INR 1.14; PARTIAL THROMBOPLASTIN TIME 29.9 SECONDS (24.8-34.2); PROTHROMBIN TIME 14.3 SECONDS (12.5-14.5)
[2024-06-25] MEDS: KCL 10MEQ/100ML SWI (KRUN) 10 MEQ in IV 1 EA IV SCH (16:28)
[2024-06-25 22:39] VITALS: BP 125/56; TEMP 98.1; O2SAT 95
[2024-06-25] MEDS: HEPARIN SOD (PORCINE) 5000UNITS/ML 1ML VIAL/SYRINGE SC SCH (22:40)
[2024-06-26 05:04] VITALS: BP 127/58; TEMP 97.7; O2SAT 95
[2024-06-26] MEDS: LEVOTHYROXINE 75MCG TABLET (0.075MG) PO SCH (06:05)
[2024-06-26 06:18] LABS: HEMATOCRIT 34.3 % (36.0-47.0); HEMOGLOBIN 11.2 g/dl (12.0-15.5); MEAN CORPUSCULAR HEMOGLOBIN 29.3 pg (27.0-33.0); MEAN CORPUSCULAR HGB CONC 32.7 g/dl (32.0-36.5); MEAN CORPUSCULAR VOLUME 89.8 fl (80.0-96.0); PLATELET COUNT, AUTOMATED 178 10^3/uL (150-450); RED BLOOD COUNT 3.82 10^6/uL (4.00-5.40); WHITE BLOOD COUNT 13.4 10^3/uL (4.0-10.0)
[2024-06-26 06:50] LABS: ALBUMIN 2.6 G/DL (3.2-5.2); BILIRUBIN,TOTAL 0.5 MG/DL (0.3-1.2); CALCIUM LEVEL 8.2 MG/DL (8.3-10.6); CREATININE FOR GFR 1.58 MG/DL (0.55-1.30); GLOMERULAR FILTRATION RATE 33.5 (>32); POTASSIUM SERUM 3.6 MMOL/L (3.5-5.1)
[2024-06-26 07:44] VITALS: BP 134/78; TEMP 98.1; O2SAT 92
[2024-06-26] MEDS: LR 1,000 ML IV SCH (08:37)
[2024-06-26] MEDS: ACETAMINOPHEN TAB 650MG DOSE (2X325MG) PO PRN (12:49)
[2024-06-26] MEDS: ONDANSETRON 4MG 2ML VIAL IV PRN (15:16)
[2024-06-26 15:26] VITALS: BP 137/73; TEMP 97.5; O2SAT 98
[2024-06-26] MEDS: LACTOBACILLUS ACIDOPHILUS CAP (BACID) PO SCH (17:19)
[2024-06-26] MEDS: cefTRIAXone SOD 1 GM in D5W MINI-BAG PLUS 50 ML IV SCH (17:19)
[2024-06-26 21:04] VITALS: BP 137/72; TEMP 97.7; O2SAT 94
[2024-06-27 04:00] VITALS: BP 140/68; TEMP 98.1; O2SAT 93
[2024-06-27 05:48] LABS: HEMATOCRIT 33.1 % (36.0-47.0); HEMOGLOBIN 10.9 g/dl (12.0-15.5); MEAN CORPUSCULAR HEMOGLOBIN 28.5 pg (27.0-33.0); MEAN CORPUSCULAR HGB CONC 32.9 g/dl (32.0-36.5); MEAN CORPUSCULAR VOLUME 86.6 fl (80.0-96.0); PLATELET COUNT, AUTOMATED 182 10^3/uL (150-450); RED BLOOD COUNT 3.82 10^6/uL (4.00-5.40); WHITE BLOOD COUNT 13.2 10^3/uL (4.0-10.0)
[2024-06-27 06:20] LABS: ALBUMIN 2.5 G/DL (3.2-5.2); BILIRUBIN,TOTAL 0.4 MG/DL (0.3-1.2); CALCIUM LEVEL 8.3 MG/DL (8.3-10.6); CREATININE FOR GFR 1.41 MG/DL (0.55-1.30); GLOMERULAR FILTRATION RATE 38.2 (>32); POTASSIUM SERUM 3.3 MMOL/L (3.5-5.1); TOTAL PROTEIN 5.8 G/DL (5.7-8.2)
[2024-06-27] MEDS: POTASSIUM CHLORIDE 10MEQ SR TABLET PO ONE (09:18)
[2024-06-27 12:00] VITALS: BP 145/84; TEMP 97.5; O2SAT 98
[2024-06-27 20:26] VITALS: BP 144/87; TEMP 97.7; O2SAT 98
[2024-06-28 03:42] VITALS: BP 151/71; TEMP 97.9; O2SAT 95
[2024-06-28 05:52] LABS: HEMATOCRIT 32.4 % (36.0-47.0); MEAN CORPUSCULAR HEMOGLOBIN 29.5 pg (27.0-33.0); MEAN CORPUSCULAR VOLUME 86.9 fl (80.0-96.0); PLATELET COUNT, AUTOMATED 207 10^3/uL (150-450); RED BLOOD COUNT 3.73 10^6/uL (4.00-5.40); WHITE BLOOD COUNT 12.5 10^3/uL (4.0-10.0)
[2024-06-28 06:24] LABS: ALBUMIN 2.5 G/DL (3.2-5.2); BILIRUBIN,TOTAL 0.3 MG/DL (0.3-1.2); CALCIUM LEVEL 8.5 MG/DL (8.3-10.6); CREATININE FOR GFR 1.3 MG/DL (0.55-1.30); POTASSIUM SERUM 3.3 MMOL/L (3.5-5.1); TOTAL PROTEIN 5.8 G/DL (5.7-8.2)
[2024-06-28] MEDS: POTASSIUM CHLORIDE 10MEQ SR TABLET PO ONE (10:23)
[2024-06-28 12:00] VITALS: BP 153/75; TEMP 97.5; O2SAT 96
[2024-06-28 20:00] VITALS: BP 157/77; TEMP 97.9; O2SAT 98
[2024-06-29 04:00] VITALS: BP 141/77; TEMP 97.5; O2SAT 96
[2024-06-29 06:24] LABS: HEMOGLOBIN 11.5 g/dl (12.0-15.5); MEAN CORPUSCULAR HEMOGLOBIN 29.2 pg (27.0-33.0); MEAN CORPUSCULAR HGB CONC 33.8 g/dl (32.0-36.5); MEAN CORPUSCULAR VOLUME 86.3 fl (80.0-96.0); PLATELET COUNT, AUTOMATED 211 10^3/uL (150-450); RED BLOOD COUNT 3.94 10^6/uL (4.00-5.40)
[2024-06-29 06:50] LABS: ALBUMIN 2.7 G/DL (3.2-5.2); BILIRUBIN,TOTAL 0.3 MG/DL (0.3-1.2); CALCIUM LEVEL 8.7 MG/DL (8.3-10.6); CREATININE FOR GFR 1.43 MG/DL (0.55-1.30); GLOMERULAR FILTRATION RATE 37.6 (>32); POTASSIUM SERUM 3.2 MMOL/L (3.5-5.1); TOTAL PROTEIN 6.1 G/DL (5.7-8.2)
[2024-06-29] MEDS: POTASSIUM CHLORIDE 10MEQ SR TABLET PO SCH (08:18)
[2024-06-29 12:00] VITALS: BP 142/76; TEMP 97.9; O2SAT 95
[2024-06-29] MEDS ORDERED: RISATAB3 PO (14:18)
[2024-06-29] MEDS ORDERED: CEFD1CAP9 PO (14:21)
[2024-06-29 19:54] VITALS: BP 129/63; TEMP 98.1; O2SAT 94
[2024-06-30 04:00] VITALS: BP 117/55; TEMP 97.7; O2SAT 94
[2024-06-30 07:02] LABS: HEMATOCRIT 34.1 % (36.0-47.0); HEMOGLOBIN 11.5 g/dl (12.0-15.5); MEAN CORPUSCULAR HEMOGLOBIN 29.2 pg (27.0-33.0); MEAN CORPUSCULAR HGB CONC 33.7 g/dl (32.0-36.5); MEAN CORPUSCULAR VOLUME 86.5 fl (80.0-96.0); PLATELET COUNT, AUTOMATED 252 10^3/uL (150-450); RED BLOOD COUNT 3.94 10^6/uL (4.00-5.40); WHITE BLOOD COUNT 14.3 10^3/uL (4.0-10.0)
[2024-06-30 07:21] LABS: ALBUMIN 2.9 G/DL (3.2-5.2); BILIRUBIN,TOTAL 0.4 MG/DL (0.3-1.2); CALCIUM LEVEL 8.3 MG/DL (8.3-10.6); CREATININE FOR GFR 1.47 MG/DL (0.55-1.30); GLOMERULAR FILTRATION RATE 36.4 (>32); POTASSIUM SERUM 3.2 MMOL/L (3.5-5.1); TOTAL PROTEIN 6.4 G/DL (5.7-8.2)
[2024-06-30 12:00] VITALS: BP 148/73; TEMP 97.7; O2SAT 98
[2024-06-30 19:53] VITALS: BP 146/73; TEMP 97.7; O2SAT 96
[2024-06-30 21:01] VITALS: BP 146/73
[2024-06-30] MEDS: NS 1,000 ML IV SCH (21:03)
[2024-07-01 04:00] VITALS: BP 118/55; TEMP 97.9; O2SAT 96
[2024-07-01 06:10] LABS: HEMATOCRIT 34.1 % (36.0-47.0); HEMOGLOBIN 11.6 g/dl (12.0-15.5); MEAN CORPUSCULAR HEMOGLOBIN 29.4 pg (27.0-33.0); MEAN CORPUSCULAR VOLUME 86.5 fl (80.0-96.0); PLATELET COUNT, AUTOMATED 288 10^3/uL (150-450); RED BLOOD COUNT 3.94 10^6/uL (4.00-5.40); WHITE BLOOD COUNT 16.5 10^3/uL (4.0-10.0)
[2024-07-01 06:34] LABS: ALBUMIN 2.9 G/DL (3.2-5.2); BILIRUBIN,TOTAL 0.3 MG/DL (0.3-1.2); CALCIUM LEVEL 8.2 MG/DL (8.3-10.6); CREATININE FOR GFR 1.48 MG/DL (0.55-1.30); GLOMERULAR FILTRATION RATE 36.1 (>32); POTASSIUM SERUM 3.2 MMOL/L (3.5-5.1); TOTAL PROTEIN 6.4 G/DL (5.7-8.2)
[2024-07-01 12:00] VITALS: BP 143/74; TEMP 97.7; O2SAT 94
[2024-07-01] MEDS ORDERED: LEVO1TAB40 PO (14:14)
[2024-07-01] MEDS: LevoFLOXacin 750 MG TABLET PO SCH (14:42)
[2024-07-01] MEDS: POTASSIUM CHLORIDE 10MEQ SR TABLET PO ONE ×2 (15:05→16:03)
== END 2024-07-01 16:50 | disposition home or self-care (01) | DRG 872 ==
LOC: EDBD 08:54 → M ED 08:54 → M ED INP 08:55 → M MSPAV 15:45 → OBSVTOIN 06-27 16:41
PROVIDERS: ADMIT Internal Medicine; ATTEND Internal Medicine
DX: A41.51 Sepsis due to Escherichia coli [E. coli] (principal); N17.9 Acute kidney failure, unspecified; A04.4 Other intestinal Escherichia coli infections; N39.0 Urinary tract infection, site not specified; E03.9 Hypothyroidism, unspecified; I10 Essential (primary) hypertension; E78.5 Hyperlipidemia, unspecified; G47.00 Insomnia, unspecified; K21.9 Gastro-esophageal reflux disease without esophagitis; M54.2 Cervicalgia; G89.29 Other chronic pain; Z90.49 Acquired absence of other specified parts of digestive tract; E87.6 Hypokalemia; K76.0 Fatty (change of) liver, not elsewhere classified; Z90.79 Acquired absence of other genital organ(s); Z66 Do not resuscitate; Z79.890 Hormone replacement therapy; Z79.899 Other long term (current) drug therapy; Z11.52 Encounter for screening for COVID-19; Z88.5 Allergy status to narcotic agent; R74.01 Elevation of levels of liver transaminase levels

== ENCOUNTER → 2024-07-04 | Outpatient (REF) | payer MEDICARE ==
[~2024-07-04] MED LIST changes: +ACET-683 PO; +LEVO1TAB40 PO; +RISATAB3 PO
[2024-07-04 15:05] LABS: HEMATOCRIT 37.7 % (36.0-47.0); HEMOGLOBIN 12.3 g/dl (12.0-15.5); MEAN CORPUSCULAR HEMOGLOBIN 29.3 pg (27.0-33.0); MEAN CORPUSCULAR HGB CONC 32.6 g/dl (32.0-36.5); MEAN CORPUSCULAR VOLUME 89.8 fl (80.0-96.0); PLATELET COUNT, AUTOMATED 392 10^3/uL (150-450); WHITE BLOOD COUNT 12.5 10^3/uL (4.0-10.0)
[2024-07-04 15:41] LABS: ALBUMIN 3.4 G/DL (3.2-5.2); BILIRUBIN,TOTAL 0.4 MG/DL (0.3-1.2); CALCIUM LEVEL 9.5 MG/DL (8.3-10.6); CREATININE FOR GFR 1.56 MG/DL (0.55-1.30); TOTAL PROTEIN 7.2 G/DL (5.7-8.2)
== END ==
LOC: M LABDRWAD 13:36
PROVIDERS: ATTEND Internal Medicine
DX: N17.9 Acute kidney failure, unspecified (principal); A41.51 Sepsis due to Escherichia coli [E. coli]

== ENCOUNTER → 2024-09-18 | Outpatient (CLI) | payer MEDICARE ==
[~2024-09-18] MED LIST changes: -CYCL5TAB PO; +CYCL5TAB4 PO
== END ==
LOC: M WHC 09:56
PROVIDERS: ATTEND Family Medicine
DX: Z12.31 Encounter for screening mammogram for malignant neoplasm of breast (principal)

== ENCOUNTER → 2025-09-30 | Outpatient (CLI) | payer MEDICARE | LOC: M WHC 11:58 | PROVIDERS: ATTEND Family Medicine | DX: Z12.31 Encounter for screening mammogram for malignant neoplasm of breast (principal) ==